=== PATIENT | female | born 1975 | race Caucasian/White ===

== ENCOUNTER 2020-05-24 05:42 | Emergency (ER) | payer SELFPAY ==
--- NOTE | ~2020-05-24 | CT_ITS ---
EXAMINATION: CT abdomen pelvis wo con EXAM DATE: 05/24/2020 06:23 INDICATION: Subsequent visit for known closed fracture(s) follow-up of the left flank pain for 2 chau rs. Nausea and vomiting. History of kidney stones. TECHNIQUE: Spiral CT of the abdomen and pelvis was performed without contrast. Axial, coronal and sag ittal images were reviewed. The dose-length product (DLP) for this examination was 636.87 mGy-cm. T he exposure was tailored according to patient size (auto mA exposure control), and iterative reconstr uction (ASIR) was used as additional dose reduction technique. There is no prior study for compariso n. FINDINGS: There is a 3 mm stone in the left ureterovesicular junction, with mild hydroureteronephrosi s. This is seen on axial image 154, has been indicated. There is a 3.5 mm right inferior calyceal sto ne and an additional punctate right mid calyceal stone. The uterus is not identified and has likely b een surgically resected. The bladder is collapsed at time of imaging limiting evaluation. The liver , spleen, adrenal glands and pancreas are unremarkable. There is a 1.4 cm peripherally calcified gal lstone, gallbladder otherwise unremarkable. There is no retroperitoneal or pelvic lymphadenopathy. The appendix is not positively visualized. There is no pericecal inflammatory change to suggest appe ndicitis. The stomach and small bowel are unremarkable. There is expected amount of colonic stool. No free intraperitoneal gas. The heart is normal in size. There are no pericardial or pleural e ffusions. There is approximately 1 cm ill-defined low left posterior sulcus nodule and a 5 mm ill-de fined right posterior sulcus nodule. Could be granulomas or acute infectious process. Would be atypic al for COVID-19 given confluence rather than groundglass density but please clinically correlate. Th ere are no osteoblastic or osteolytic lesions identified. IMPRESSION: 1. Small nodule at each lung base with surrounding groundglass halo, often suggesting acute inflamma tory/infectious process. This would be atypical appearance for COVID-19 but please clinically correla te. 2. Left UVJ 3 mm stone, mild hydroureteronephrosis. 3. Right nephrolithiasis. 4. Cholelithiasis. Urologist consultants would appreciate KUB as baseline for follow-up, treatment planning. Reviewed, dictated and finalized at location A. IMPRESSION: 1. Small nodule at each lung base with surrounding groundglass halo, often sug gesting acute inflammatory/infectious process. This would be atypical appearanc e for COVID-19 but please clinically correlate. 2. Left UVJ 3 mm stone, mild hydroureteronephrosis. 3. Right nephrolithiasis. 4. Cholelithiasis. Urologist consultants would appreciate KUB as baseline for follow-up, treatment planning.
[2020-05-24 05:45] VITALS: BP 137/82; PULSE 80; RESP 17; TEMP 35.6; O2SAT 100
--- NOTE | 2020-05-24 06:05 | ED.ABDPAIN ---
HPI - Abdominal Pain General Chief Complaint: Back Pain/Injury Stated Complaint: kidney stone Time Seen by Provider: 05/24/20 06:00 History of Present Illness HPI narrative: Left flank pain since 399. Radiating to LLQ. Associated with nausea and a sensation of needing to urinate. She has had similar symptoms in the distant past due to a kidney stone. NO fever, diarrhea, constipation. Related Data Allergies Allergy/AdvReac Type Severity Reaction Status Date / Time Penicillins Allergy Unknown Unknown Verified 05/24/20 05:49 Review of Systems Review of Systems: All systems reviewed & are unremarkable except as noted in HPI and below Constitutional: Constitutional: Denies fever(s) Cardiovascular: Cardiovascular: Denies chest pain Respiratory: Respiratory: Denies dyspnea Gastrointestinal: Gastrointestinal: Reports abdominal pain, Denies constipation, Denies diarrhea, Reports nausea and Denies vomiting Genitourinary: Genitourinary: Denies hematuria, Denies dysuria and Reports flank pain Neurologic: Denies weakness [facility] Past Medical History Medical History (Updated 05/25/20 @ 00:00 by Prem Lala) Kidney stone Social History Social History Smoking status: Never smoker Alcohol intake: never Gender identity (if verbalized by the patient): Female Exam Const: General: healthy appearing, no acute distress and alert Nutritional Appearance: obese Orientation/consciousness: patient oriented x3 HENMT: Head: normal to inspection Resp: Effort & Inspection: normal respiratory effort Auscultation: clear to auscultation bilaterally Cardio: Rate: regular rate Rhythm: regular rhythm GI: Inspection: non-distended GI Palp: Yes Soft to palpation and No Tenderness to palpation present (GI) : General: Yes no CVA tenderness Skin: General skin exam: normal color Neuro: General: patient oriented x3, moves all extremities, no focal motor deficits and CN's II-XI intact bilaterally Speech: normal speech Extrem: General: normal to inspection Course Vital Signs Vital signs: Vital Signs Temperature 35.6 C L 05/24/20 05:45 Pulse Rate 80 05/24/20 05:45 Respiratory Rate 17 05/24/20 05:45 Blood Pressure 137/82 05/24/20 05:45 Pulse Oximetry 100 05/24/20 05:45 Temperature 35.6 C L 05/24/20 05:45 Pulse Rate 72 05/24/20 07:36 Respiratory Rate 18 05/24/20 07:36 Blood Pressure 117/68 05/24/20 07:36 Pulse Oximetry 100 05/24/20 07:36 MDM - Abdominal Pain MDM Narrative Medical decision making narrative: 3 mm Left UVJ stone Lab Data Result diagrams: 05/24/20 06:14 05/24/20 06:41 Labs: Lab Results 05/24/20 05/24/20 05/24/20 Range/Units 06:00 06:14 06:41 WBC 6.7 (4.5-10.0) K/mm3 RBC 4.71 (4.2-5.4) M/mm3 Hgb 13.5 (12.0-15.0) g/dL Hct 40.9 (37.0-47.0) % MCV 86.8 (80-100) fl MCH 28.7 (26-34) pg MCHC 33.0 (32-36) g/dl RDW 12.7 (11.5-14.5) % Plt Count 271 (150-375) k/mm3 MPV 10.1 (7.4-10.4) fl Immature Gran % (Auto) 0.3 (0-0.5) % Neut % (Auto) 44.7 L (45.5-73.1) % Lymph % (Auto) 41.7 (18.3-44.2) % [place] % (Auto) 7.6 (2.6-8.5) % Eos % (Auto) 4.5 H (0-4.4) % Baso % (Auto) 1.2 (0.2-1.2) % Lymph # (Auto) 2.78 (0.9-3.2) K/mm3 [place] # (Auto) 0.5 (0.1-0.6) K/mm3 Eos # (Auto) 0.3 (0-0.3) K/mm3 Baso # (Auto) 0.1 (0.0-0.1) K/mm3 Abs Immat Gran (auto) 0.02 (0.00-0.031) K/mm3 Absolute Neuts (auto) 3.0 (1.3-6.7) K/mm3 Absolute Nucleated RBC 0.0 (0.0-0.012) K/mm3 Nucleated RBC % 0.0 (0.0-0.2) % Sodium 140 (137-145) mmol/L Potassium 3.9 (3.4-5.0) mmol/L Chloride 106 (98-107) mmol/L Carbon Dioxide 25 (22-30) mmol/L Anion Gap 9 (8-16) mmol/L BUN 12 (7-17) mg/dL Creatinine 0.90 (0.7-1.0) mg/dL Estim Creat Clear Calc 80 ml/min Estimated GFR > 60
[2020-05-24 06:08] LABS: Add Urine Microscopic? YES; Appearance Urine Cloudy (Clear); Bacteria Urine 2+ /hpf; Bilirubin Urine Negative (Negative); Blood Urine Negative (Negative); Color Urine Yellow (Yellow); Glucose Urine UA Negative (Negative); Ketones Urine Negative (Negative); Leukocyte Esterase Ur Negative LEU/UL (Negative); Mucus Urine Heavy /lpf; Nitrate Urine Negative (Negative); Protein Urine Negative (Negative); Squamous Epithelial Cell Urine Many /hpf (Few); Urobilinogen Urine Negative mg/dL (<2.0)
[2020-05-24 06:24] LABS: Basophils Absolute Auto 0.1 K/mm3 (0.0-0.1); Basophils Percent Auto 1.2 % (0.2-1.2); Eosinophils Absolute Auto 0.3 K/mm3 (0-0.3); Eosinophils Percent Auto 4.5 % (0-4.4); Hematocrit 40.9 % (37.0-47.0); Hemoglobin 13.5 g/dL (12.0-15.0); Immature Granulocyte Absolute 0.02 K/mm3 (0.00-0.031); Immature Granulocyte Percent A 0.3 % (0-0.5); Lymphocytes Absolute Auto 2.78 K/mm3 (0.9-3.2); Lymphocytes Percent Auto 41.7 % (18.3-44.2); Mean Corpuscular Hemoglobin 28.7 pg (26-34); Mean Corpuscular Volume 86.8 fl (80-100); Mean Platelet Volume 10.1 fl (7.4-10.4); Monocytes Absolute Auto 0.5 K/mm3 (0.1-0.6); Monocytes Percent Auto 7.6 % (2.6-8.5); Neutrophils Percent Auto 44.7 % (45.5-73.1); Platelet Count Result 271 k/mm3 (150-375); Red Blood Count 4.71 M/mm3 (4.2-5.4); Red Cell Distribution Width 12.7 % (11.5-14.5); White Blood Count 6.7 K/mm3 (4.5-10.0)
[2020-05-24] MEDS: SODIUM CHLORIDE 0.9% IV 1,000 ML 999 ML IV CONT (06:28)
[2020-05-24] MEDS: TAMSULOSIN HCL 0.4 MG CAPSULE PO (06:49)
[2020-05-24] MEDS: ONDANSETRON INJ 4 MG/2 ML VIAL IV PUSH (06:49)
[2020-05-24] MEDS: KETOROLAC 30 MG/ML VIAL (*BKC) IV PUSH (06:49)
[2020-05-24 07:01] LABS: Alanine Aminotransferase 37 U/L (4-35); Albumin Level 4.1 g/dL (3.5-5.1); Alkaline Phosphatase 88 U/L (38-126); Anion Gap 9 mmol/L (8-16); Aspartate Amino Transferase 28 U/L (14-36); Bilirubin,Total 0.4 mg/dL (0.2-1.3); Blood Urea Nitrogen 12 mg/dL (7-17); Calcium 8.9 mg/dL (8.4-10.2); Carbon Dioxide 25 mmol/L (22-30); Chloride 106 mmol/L (98-107); Estimated CRCL calculation 80 ml/min; Estimated Glomerular Filt Rate > 60; Glucose 129 mg/dL (65-105); Potassium 3.9 mmol/L (3.4-5.0); Sodium 140 mmol/L (137-145)
[2020-05-24 07:12] VITALS: BP 122/68; PULSE 68; RESP 16; O2SAT 100
--- NOTE | 2020-05-24 07:12 | PC.NURSE ---
ASSUMED PT CARE FROM [facility] SO[facility] AT THIS TIME, AWAITING FLUIDS TO FINISH RUNNING THEN D/C'ING PT.
[2020-05-24 07:36] VITALS: BP 117/68; PULSE 72; RESP 18; O2SAT 100
== END 2020-05-24 07:37 | disposition home or self-care (01) ==
PROVIDERS: Emergency Provider Emergency Medicine; PCP Family Medicine
DX: N13.2 Hydronephrosis with renal and ureteral calculous obstruction (principal); Z87.442 Personal history of urinary calculi; K80.20 Calculus of gallbladder without cholecystitis without obstruction; R91.8 Other nonspecific abnormal finding of lung field
CPT/HCPCS: 36415; 74176; 80053; 81001; 85025; 96361; 96374; 96375; 99284; A9270; J1170; J1885; J2405; J3010; J7030

== ENCOUNTER → 2020-08-26 14:23 | Outpatient (CLI) | payer SELFPAY ==
--- NOTE | ~2020-08-26 | XR_ITS ---
EXAMINATION: XR chest 2V 08/26/2020 14:44 INDICATION: Cough for 6 month PROCEDURE: 2 view chest COMPARISON: 02/13/2018 FINDINGS: The lungs are clear. The cardiomediastinal silhouette is within normal limits. There are no pleural effusions. There is no pneumothorax suspected. IMPRESSION: 1: NO ACUTE CARDIOPULMONARY DISEASE. Reviewed, dictated and finalized at location A. LEMAN
== END ==
PROVIDERS: Visit Provider Nurse Practitioner Family
DX: R05 Cough (principal)
CPT/HCPCS: 71046

== ENCOUNTER 2020-12-24 13:37 | Emergency (ER) | payer MEDICAID, SELFPAY ==
--- NOTE | ~2020-12-24 | CT_ITS ---
EXAMINATION: CT brain wo con DATE: 12/24/2020 15:13 INDICATION: Confusion, dizziness. Neck pain radiating to both arms. TECHNIQUE: Computed tomography (CT) of the head was performed without intravenous contrast. The mA wa s adjusted according to patient size. Iterative reconstruction technique was employed. Exam dose: 60 5.33 mGy-cm total exam DLP. COMPARISON: None FINDINGS: No intracranial mass lesion or hemorrhage or cerebrovascular accident is evident. No midlin e shift or mass effect. Normal ventricular size. Normal olivo-white matter differentiation. No subdural or epidural hematoma. The mastoid air cells are normally developed and aerated. The right frontal sinus is not developed. Left frontal sinus is clear. There is minimal mucoperiostea l thickening of the sphenoid sinuses. There is soft tissue thickening of the ethmoid air cells. The v maryana upper aspect of the maxillary sinuses is included, without abnormality. IMPRESSION: No intracranial abnormality Reviewed, dictated and finalized at [facility]. Reviewed, dictated and finalized at location A. IMPRESSION: No intracranial abnormality
--- NOTE | ~2020-12-24 | CT_ITS ---
EXAMINATION: CT cervical spine wo con DATE: 12/24/2020 15:14 INDICATION: Neck pain radiating to both arms TECHNIQUE: Computed tomography (CT) of the cervical spine was performed without intravenous contrast. Automated exposure control and iterative reconstruction technique were employed. Exam dose: 324.31 mGy-cm total exam DLP. COMPARISON: None FINDINGS: There is straightening of the cervical spine which may be due to muscle spasm and/or positi oning. C1 and C2 are normally aligned and the odontoid process is intact. No fracture or dislocation or lock ed facet or prevertebral soft tissue swelling. Cervical interspaces are well preserved. IMPRESSION: Straightening of the cervical spine; no fracture or dislocation or locked facet Reviewed, dictated and finalized at [facility]. Reviewed, dictated and finalized at location A.
[2020-12-24 13:48] VITALS: BP 123/93; PULSE 94; RESP 20; TEMP 36.3; O2SAT 97
--- NOTE | 2020-12-24 14:56 | ED.BACK ---
HPI - Back Pain/Injury General Chief Complaint: Back Pain/Injury Stated Complaint: neck and back pain Time Seen by Provider: 12/24/20 13:54 Source: patient Mode of arrival: ambulatory Limitations: no limitations History of Present Illness HPI Narrative: Patient is a 45-year-old female who presents with neck pain and back pain and head pain that have been going on for 6 months patient has not been seen by primary care for this saw primary care yesterday for urinary symptoms diagnosed UTI but did not bring these issues symptoms have been present for 6 months patient notes history of chronic neck and back pain secondary to fracture denies new injury or trauma patient on arrival is tearful notes that she has had bouts of confusion and dizziness but has not brought this up to primary care patient has been taking gabapentin for her symptoms long-term Related Data Allergies Allergy/AdvReac Type Severity Reaction Status Date / Time Penicillins Allergy Unknown Unknown Verified 12/06/20 08:52 Review of Systems Review of Systems: All systems reviewed & are unremarkable except as noted in HPI and below PMFSH Past Medical History Medical History BMI over 35 Kidney stone Family History Family History Father No problems noted. 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 HEAD: Normocephalic, atraumatic. EYES: PERRLA and EOMI. ENT: Nares clear, no rhinorrhea or epistaxis. Mucous membranes moist. NECK: Supple. No adenopathy or masses. CHEST: Clear to auscultation. No respiratory distress. No wheezes rales or rhonchi HEART: Regular rate and rhythm. No murmur heard. EXTREMITIES: Normal range of motion. No edema. Midline cervical and upper thoracic tenderness no deformities noted SKIN: Warm, dry, no rash. NEURO: No focal deficits. Alert and oriented x3. Cranial nerves II through XII grossly intact. Normal speech and gait. Patient moves all extremities without difficulty PSYCH: Normal mood and affect. Course Course Emergency Course: Patient evaluated in the emergency department no high risk changes in the evaluation will be discharged with follow-up with primary care and neurology for her symptoms ABCs and vital signs intact and stable felt appropriate for outpatient reevaluation Vital Signs Vital signs: Vital Signs Temperature 97.4 F L 12/24/20 13:48 Pulse Rate 94 12/24/20 13:48 Respiratory Rate 20 12/24/20 13:48 Blood Pressure 123/93 H 12/24/20 13:48 Pulse Oximetry 97 12/24/20 13:48 Temperature 97.4 F L 12/24/20 13:48 Pulse Rate 94 12/24/20 13:48 Respiratory Rate 20 12/24/20 13:48 Blood Pressure 123/93 H 12/24/20 13:48 Pulse Oximetry 97 12/24/20 13:48 MDM - Back Pain/Injury MDM Narrative Medical decision making narrative: Patients headache was not sudden or maximal in onset. There are o focal neurological deficits on exam. Subarachnoid hemorrhage is felt to be unlikey at this time. There is no history of fever, and neck is supple without meningismus, making meningitis unlikely. No traumatic history or signs of trauma on exam. No risk factors for CVA, risk factors reviewed. NO ocular signs on exam and in history to suggest acute glaucoma. Patients headache is felt to be a reasonable candidate for outpatient evaluation Lab Data
[2020-12-24 15:31] LABS: Basophils Absolute Auto 0.1 K/mm3 (0.0-0.1); Basophils Percent Auto 1.2 % (0.2-1.2); Eosinophils Absolute Auto 0.2 K/mm3 (0-0.3); Eosinophils Percent Auto 2.5 % (0-4.4); Hematocrit 39.2 % (37.0-47.0); Hemoglobin 12.9 g/dL (12.0-15.0); Immature Granulocyte Absolute 0.03 K/mm3 (0.00-0.031); Immature Granulocyte Percent A 0.3 % (0-0.5); Lymphocytes Absolute Auto 3.22 K/mm3 (0.9-3.2); Lymphocytes Percent Auto 35.3 % (18.3-44.2); Mean Corpuscular HGB Conc 32.9 g/dl (32-36); Mean Corpuscular Hemoglobin 29.2 pg (26-34); Mean Corpuscular Volume 88.7 fl (80-100); Mean Platelet Volume 9.6 fl (7.4-10.4); Monocytes Absolute Auto 0.8 K/mm3 (0.1-0.6); Monocytes Percent Auto 9.1 % (2.6-8.5); Neutrophils Absolute Auto 4.7 K/mm3 (1.3-6.7); Neutrophils Percent Auto 51.6 % (45.5-73.1); Platelet Count Result 270 k/mm3 (150-375); Red Blood Count 4.42 M/mm3 (4.2-5.4); Red Cell Distribution Width 12.8 % (11.5-14.5); White Blood Count 9.1 K/mm3 (4.5-10.0)
[2020-12-24 15:31] LABS: Add Urine Microscopic? YES; Appearance Urine Cloudy (Clear); Bilirubin Urine Negative (Negative); Blood Urine Negative (Negative); Color Urine Yellow (Yellow); Glucose Urine UA Negative (Negative); Ketones Urine Trace mg/dL (Negative); Leukocyte Esterase Ur Trace LEU/UL (Negative); Mucus Urine Rare /lpf; Nitrate Urine Negative (Negative); Protein Urine 1+ mg/dL (Negative); RBC Urine 0-2 /hpf (0-2); Specific Grav Ur 1.029 (1.001-1.035); Squamous Epithelial Cell Urine Few /hpf (Few)
[2020-12-24] MEDS: SODIUM CHLORIDE 0.9% IV 1,000 ML 999 ML IV CONT (15:35)
[2020-12-24 15:42] LABS: Amphetamine Screen Urine Negative (Negative); Barbiturate Screen Urine Negative (Negative); Benzodiazepines Screen Urine Negative (Negative); Cannabinoid Screen Urine Negative (Negative); Cocaine Screen Urine Negative (Negative); Methadone Screen Urine Negative (Negative); Opiate Screen Urine Negative (Negative); Phencyclidine Screen Urine Negative (Negative)
[2020-12-24 16:38] VITALS: BP 112/78; PULSE 72; RESP 18; O2SAT 97
== END 2020-12-24 16:43 | disposition home or self-care (01) ==
PROVIDERS: Emergency Medicine Emergency Medical Services; Emergency Provider Emergency Medicine; PCP Family Medicine
DX: M54.2 Cervicalgia (principal); R51.9 Headache, unspecified; N39.0 Urinary tract infection, site not specified; Z87.442 Personal history of urinary calculi
CPT/HCPCS: 36415; 70450; 72125; 80307; 81001; 85025; 96361; 96365; 99284; J0131; J7030

== ENCOUNTER 2021-07-02 16:41 | Emergency (ER) | payer BC, SELFPAY ==
[2021-07-02] VITALS (7 sets, daily range): BP systolic 100–121; BP diastolic 66–81; PULSE 74–101; RESP 17–18; TEMP 36.6–36.9; O2SAT 96–100
--- NOTE | ~2021-07-02 | CT_ITS ---
EXAMINATION: CT abdomen pelvis w con DATE: 07/02/2021 21:16 INDICATION: Left lower quadrant abdominal pain, nausea, vomiting, diarrhea TECHNIQUE: Computed tomography (CT) of the abdomen and pelvis was performed with 100 cc Omnipaque 350 intravenous contrast. Automated exposure control and iterative reconstruction technique were employe d. Exam dose: 1277.63 mGy-cm total exam DLP. COMPARISON: 05/25/2020 CT abdomen pelvis FINDINGS: Prior 8.5 mm posterolateral left basilar lower lobe nodule currently measures 11 mm. The lung bases are clear of infiltrate or consolidation. Normal heart size. No pericardial or pleural effusion. 1.5 cm gallstone. No pericholecystic fluid or fat stranding. The liver, spleen, pancreas are unremarkable. No bile duct or pancreatic duct dilatation. Unremarkable adrenal glands. Several right renal cysts, measuring up to 8.5 mm. There are 2 nonobstructing right renal calculi measuring approximately 4.5 and 5 mm. No left renal mass lesion or left urinary tract calculus. No ureteral calculus or hydroureteronephros is of either kidney. The urinary bladder is evacuated. Status post hysterectomy. Normal caliber of the abdominal aorta. No intraperitoneal or retroperitoneal or pelvic mass lesion or adenopathy or ascites. Mild colonic diverticulosis; no CT evidence of diverticulitis. No bowel obstruction, bowel wall thick ening, pneumatosis or intraperitoneal free air. Fat-containing umbilical hernia. Multilevel degenerative disc involving particularly L3 4 and L4-5 and L5-S1, with associated mild ret rolisthesis at L3-4. IMPRESSION: 11 mm left lower lobe pulmonary nodule, increased in size compared to 8.5 mm dimension o n 05/25/2020. Differential diagnosis includes pulmonary granuloma, hamartoma, primary or metastatic pu lmonary malignancy. Consider PET/CT imaging Cholelithiasis Several right renal cysts Nonobstructive right nephrolithiasis Mild colonic diverticulosis Status post hysterectomy Reviewed, dictated and finalized at [facility]. Reviewed, dictated and finalized at location A. IMPRESSION: 11 mm left lower lobe pulmonary nodule, increased in size compared to 8.5 mm dimension on 05/25/2020. Differential diagnosis includes pulmonary gr anuloma, hamartoma, primary or metastatic pulmonary malignancy. Consider PET/CT imaging Cholelithiasis Several right renal cysts Nonobstructive right nephrolithiasis Mild colonic diverticulosis Status post hysterectomy
--- NOTE | 2021-07-02 17:30 | PC.NURSE ---
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
--- NOTE | 2021-07-02 17:34 | ED.NAVMDI ---
HPI - Nausea/Vomiting/Diarrhea General Chief complaint: Nausea/Vomiting/Diarrhea <Qian Jay MD - Last Filed: 07/02/21 19:31> Stated complaint: Diarrhea for 2 weeks <Qian Jay MD - Last Filed: 07/02/21 19:31> Time Seen by Provider: 07/02/21 17:26 <Qian Jay MD - Last Filed: 07/02/21 19:31> Source: patient <Qian Jay MD - Last Filed: 07/02/21 19:31> Mode of arrival: ambulatory <Qian Jay MD - Last Filed: 07/02/21 19:31> Limitations: no limitations <Qian Jay MD - Last Filed: 07/02/21 19:31> History of Present Illness HPI Narrative: This is a 45 year old female who presents for evaluation of 2 weeks of diarrhea. She developed diarrhea 2 weeks ago. She reports multiple episodes of watery, nonbloody diarrhea daily. Her diarrhea is exacerbated by eating. She also reports cramping pain that occurs to her whole torso after she eats. She denies nausea, vomiting. She has intermittent body aches. she denies preceding antibiotics use or recent travel. She also denies new foods. She has been taking imodium intermittently for her diarrhea. She did not have diarrhea today until she ate bread and juice this afternoon. <Qian Jay MD - Last Filed: 07/02/21 19:31> Related Data Allergies/Adverse reactions: Allergies Allergy/AdvReac Type Severity Reaction Status Date / Time Penicillins Allergy Unknown Unknown Verified 12/27/20 09:10 <Qian Jay MD - Last Filed: 07/02/21 19:31> Review of Systems Review of Systems: All systems reviewed & are unremarkable except as noted in HPI and below <Qian Jay MD - Last Filed: 07/02/21 19:31> PMFSH Past Medical History Medical History: Medical History BMI 36.0-36.9,adult BMI over 35 Kidney stone <Qian Jay MD - Last Filed: 07/02/21 19:31> Family History Family History: Family History Father No problems noted. 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 Gender identity (if verbalized by the patient): Female <Qian Jay MD - Last Filed: 07/02/21 19:31> Exam Const: General: alert <Qian Jay MD - Last Filed: 07/02/21 19:31> Orientation/consciousness: patient oriented x3 <Qian Jay MD - Last Filed: 07/02/21 19:31> Eyes: EOM: EOMs intact bilaterally <Qian Jay MD - Last Filed: 07/02/21 19:31> Resp: Effort & Inspection: normal respiratory effort and no retractions <Qian Jay MD - Last Filed: 07/02/21 19:31> Auscultation: clear to auscultation bilaterally <Qian Jay MD - Last Filed: 07/02/21 19:31> Cardio: Rate: regular rate <Qian Jay MD - Last Filed: 07/02/21 19:31> Rhythm: regular rhythm <Qian Jay MD - Last Filed: 07/02/21 19:31> Heart sounds: no murmurs <Qian Jay MD - Last Filed: 07/02/21 19:31> GI: GI Palp: Yes Soft to palpation, No Tenderness to palpation present (GI) and No Guarding due to palpation present (GI) <Qian Jay MD - Last Filed: 07/02/21 19:31> Auscultation: normal bowel sounds <Qian Jay MD - Last Filed: 07/02/21 19:31> Skin: General skin exam: normal color <Qian Jay MD - Last Filed: 07/02/21 19:31> Rashes: no rashes <Qian Jay MD - Last Filed: 07/02/21 19:31> Neuro: General: patient oriented x3, moves all extremities and
--- NOTE | 2021-07-02 19:05 | PC.NURSE ---
Informed oncoming RN IV and labs could not be collected
--- NOTE | 2021-07-02 19:16 | PC.NURSE ---
Patient report received. Assumed care of patient at this time.
--- NOTE | 2021-07-02 19:35 | PC.NURSE ---
Patient tough stick, per previous RN, multiple attempts for IV and blood draw, unsuccessful. Kirt RN going to attempt IV placement and blood draw.
[2021-07-02 19:55] LABS: Basophils Absolute Auto 0.1 K/mm3 (0.0-0.1); Basophils Percent Auto 0.9 % (0.2-1.2); Eosinophils Absolute Auto 0.2 K/mm3 (0-0.3); Eosinophils Percent Auto 1.9 % (0-4.4); Hematocrit 42.7 % (37.0-47.0); Immature Granulocyte Absolute 0.01 K/mm3 (0.00-0.031); Immature Granulocyte Percent A 0.1 % (0-0.5); Lymphocytes Absolute Auto 3.04 K/mm3 (0.9-3.2); Lymphocytes Percent Auto 32.3 % (18.3-44.2); Mean Corpuscular HGB Conc 32.8 g/dl (32-36); Mean Corpuscular Hemoglobin 28.9 pg (26-34); Mean Corpuscular Volume 88.2 fl (80-100); Mean Platelet Volume 9.4 fl (7.4-10.4); Monocytes Absolute Auto 0.6 K/mm3 (0.1-0.6); Monocytes Percent Auto 6.7 % (2.6-8.5); Neutrophils Absolute Auto 5.5 K/mm3 (1.3-6.7); Neutrophils Percent Auto 58.1 % (45.5-73.1); Platelet Count Result 317 k/mm3 (150-375); Red Blood Count 4.84 M/mm3 (4.2-5.4); Red Cell Distribution Width 12.7 % (11.5-14.5); White Blood Count 9.4 K/mm3 (4.5-10.0)
[2021-07-02 20:08] LABS: Alanine Aminotransferase 23 U/L (4-35); Albumin Level 4.6 g/dL (3.5-5.1); Alkaline Phosphatase 77 U/L (38-126); Anion Gap 10 mmol/L (8-16); Aspartate Amino Transferase 28 U/L (14-36); Bilirubin,Total 0.5 mg/dL (0.2-1.3); Blood Urea Nitrogen 15 mg/dL (7-17); Calcium 9.6 mg/dL (8.4-10.2); Carbon Dioxide 30 mmol/L (22-30); Chloride 100 mmol/L (98-107); Estimated CRCL calculation 77 ml/min; Estimated Glomerular Filt Rate > 60; Glucose 78 mg/dL (65-110); Lipase 77 U/L (23-300); Potassium 4.1 mmol/L (3.4-5.0); Sodium 140 mmol/L (137-145)
--- NOTE | 2021-07-02 20:43 | PC.NURSE ---
Patient ambulated to the bathroom to attempt to provide a urine and stool specimen.
[2021-07-02] MEDS: DICYCLOMINE HCL INJ 20 MG/2 ML VIAL IM (21:02)
[2021-07-02] MEDS: SODIUM CHLORIDE 0.9% IV 1,000 ML 999 ML IV CONT (21:02)
[2021-07-02 21:06] LABS: Add Urine Microscopic? YES; Appearance Urine Cloudy (Clear); Bacteria Urine Trace /hpf; Bilirubin Urine Negative (Negative); Blood Urine Negative (Negative); Color Urine Yellow (Yellow); Glucose Urine UA Negative (Negative); Ketones Urine Negative (Negative); Leukocyte Esterase Ur Trace LEU/UL (Negative); Mucus Urine Moderate /lpf; Nitrate Urine Negative (Negative); Protein Urine Negative (Negative); Specific Grav Ur 1.025 (1.001-1.035); Squamous Epithelial Cell Urine Few /hpf (Few); Urobilinogen Urine Negative mg/dL (<2.0)
[2021-07-02] MEDS: CIPROFLOXACIN 500 MG TAB PO (22:21)
[2021-07-02] MEDS: metroNIDAZOLE 250 MG TABLET 500 MG PO (22:21)
== END 2021-07-02 22:29 | disposition home or self-care (01) ==
PROVIDERS: Emergency Medicine; Emergency Provider Emergency Medicine; PCP Family Medicine
DX: R19.7 Diarrhea, unspecified (principal); N30.00 Acute cystitis without hematuria; R91.1 Solitary pulmonary nodule; Z87.442 Personal history of urinary calculi; K80.20 Calculus of gallbladder without cholecystitis without obstruction; N28.1 Cyst of kidney, acquired; K57.90 Diverticulosis of intestine, part unspecified, without perforation or abscess without bleeding
CPT/HCPCS: 36415; 74177; 80053; 81001; 81025; 83690; 85025; 87086; 87088; 96360; 96372; 99284; A9270; J0500; J7030; Q9967

== ENCOUNTER 2021-07-27 07:23 | Outpatient (CLI) | payer BC, SELFPAY ==
[2021-07-27 07:59] LABS: Anion Gap 10 mmol/L (8-16); Blood Urea Nitrogen 25 mg/dL (7-17); Carbon Dioxide 26 mmol/L (22-30); Chloride 101 mmol/L (98-107); Cholesterol 175 mg/dL (0-200); Estimated Glomerular Filt Rate > 60; Glucose 91 mg/dL (65-110); HDL Direct 35 mg/dL; Potassium 4.9 mmol/L (3.4-5.0); Sodium 137 mmol/L (137-145); Triglycerides 77 mg/dL (<150)
[2021-07-27 08:10] LABS: LDL Cholesterol Direct 100 mg/dL
[2021-07-27 08:23] LABS: Hemoglobin A1C 4.9 % (<5.7)
[2021-07-27 08:29] LABS: Vitamin D 25 Hydroxy 44.3 ng/mL
== END 2021-07-27 07:24 | disposition home or self-care (01) ==
LOC: ANHLAB 07:25
PROVIDERS: PCP Family Medicine; Visit Provider Nurse Practitioner Family
DX: Z13.1 Encounter for screening for diabetes mellitus (principal); Z13.29 Encounter for screening for other suspected endocrine disorder; Z13.220 Encounter for screening for lipoid disorders; E55.9 Vitamin D deficiency, unspecified; R73.09 Other abnormal glucose
CPT/HCPCS: 36415; 80048; 80061; 82306; 83036; 84443

== ENCOUNTER 2021-09-14 09:21 | Outpatient (CLI) | payer BC, SELFPAY ==
--- NOTE | ~2021-09-14 | PE_ITS ---
EXAMINATION: PET skull to mid thigh DATE: 09/14/2021 12:29 INDICATION: Pulmonary nodule. TECHNIQUE: Blood glucose level was 76 mg/dL. 9.126 mCi of 18-fluorodeoxyglucose (18-FDG) was administ ered i.v. Low dose computed tomography (CT) images were acquired from the base of the brain to the pr oximal thighs for attenuation correction and anatomic localization. Automated exposure control was em ployed. Dose-length product (DLP) was 595 mGy-cm. Positron emission tomography (PET) images were acqu ired in the same distribution. COMPARISON: CT abdomen and pelvis 07/02/2021 FINDINGS: Head/neck: There is increased activity in the oropharynx, oral cavity, and sublingual glands without abnormal CT correlate, likely physiologic. There are no pathologically enlarged lymph nodes. Chest: There is a 14 mm nodule in left lung lower lobe with maximum SUV of 1.4. No pleural effusion. The heart size is normal. No pericardial effusion. Abdomen/pelvis/proximal thighs: The liver is normal. There is a gallstone in the gallbladder, which i s contracted. The spleen, pancreas, adrenal glands, and kidneys are normal. There are no dilated loop s of bowel. There are no pathologically enlarged lymph nodes. There is no free intraperitoneal fluid. There is no osseous malignancy. IMPRESSION: 1. 14 mm nodule in left lung lower lobe without increased activity, increased from 9 mm on 05/24/2020. This finding is suspicious for low-grade neoplasm. CT-guided biopsy is recommended. Reviewed, dictated and finalized at location A. 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 14 mm nodule in left lung lower lobe without increased activity, increased f rom 9 mm on 05/24/2020. This finding is suspicious for low-grade neoplasm. CT-gu ided biopsy is recommended.
[2021-09-14 09:46] LABS: Glucose Point of Care 76 mg/dl (65-105)
== END 2021-09-14 09:22 | disposition home or self-care (01) ==
LOC: ANHIMG 09:24
PROVIDERS: PCP Family Medicine; Visit Provider Nurse Practitioner Family
DX: R91.1 Solitary pulmonary nodule (principal)
CPT/HCPCS: 78815; A9552

== ENCOUNTER 2021-09-18 00:31 | Emergency (ER) | payer BC, SELFPAY ==
--- NOTE | ~2021-09-18 | XR_ITS ---
EXAMINATION: XR chest 1V portable EXAM DATE: 09/18/2021 03:22 INDICATION: Chest Pain/Pressure,Sob,Hx Lt Lobe Nodule,Pet Done On 09/14/21. TECHNIQUE: Portable AP frontal chest x-ray was obtained. Comparison is made to prior examination from 08/26/2020. FINDINGS: Can't identify the 14 mm left lower lobe nodule evaluated on PET/CT. No evidence of acute a irspace disease. There are no pleural effusions. Cardiomediastinal silhouette is normal. There is n o pneumothorax suspected. The bones and soft tissues are unremarkable. IMPRESSION: No acute cardiopulmonary findings. Reviewed, dictated and finalized at location A. ING MACHINE FEEDER
--- NOTE | 2021-09-18 00:33 | ECG_ITS ---
Measurements Intervals [place] Rate: 80 P: 25 SD: 152 QRS: 17 QRSD: 88 T: 34 QT: 353 QTc: 409 Interpretive Statements SINUS RHYTHM NORMAL ECG Electronically Signed On 09-18-2021 6:35:30 JAR FILLER by Randall Dillon D.O.
[2021-09-18 00:50] VITALS: PULSE 71; RESP 18; TEMP 36.3; O2SAT 100
[2021-09-18 03:10] VITALS: BP 100/69; PULSE 70; RESP 18; O2SAT 99
[2021-09-18 03:12] VITALS: O2SAT 99
[2021-09-18 03:53] LABS: Basophils Absolute Auto 0.1 K/mm3 (0.0-0.1); Basophils Percent Auto 1.2 % (0.2-1.2); Eosinophils Absolute Auto 0.3 K/mm3 (0-0.3); Eosinophils Percent Auto 3.9 % (0-4.4); Hematocrit 40.5 % (37.0-47.0); Hemoglobin 13.2 g/dL (12.0-15.0); Immature Granulocyte Absolute 0.01 K/mm3 (0.00-0.031); Immature Granulocyte Percent A 0.1 % (0-0.5); Lymphocytes Absolute Auto 2.54 K/mm3 (0.9-3.2); Mean Corpuscular HGB Conc 32.6 g/dl (32-36); Mean Corpuscular Hemoglobin 28.7 pg (26-34); Mean Platelet Volume 10.7 fl (7.4-10.4); Monocytes Absolute Auto 0.7 K/mm3 (0.1-0.6); Monocytes Percent Auto 8.4 % (2.6-8.5); Neutrophils Absolute Auto 4.1 K/mm3 (1.3-6.7); Neutrophils Percent Auto 53.4 % (45.5-73.1); Platelet Count Result 225 k/mm3 (150-375); Red Cell Distribution Width 13.2 % (11.5-14.5); White Blood Count 7.7 K/mm3 (4.5-10.0)
[2021-09-18 04:01] LABS: Prothrombin Time 13.1 Seconds (11.1-14.7)
[2021-09-18 04:02] LABS: Partial Thromboplastin Time 34.3 SECONDS (22.3-36.8)
[2021-09-18 04:04] LABS: D Dimer 0.29 ug/mL (<0.48)
[2021-09-18 04:06] LABS: Alanine Aminotransferase 25 U/L (4-35); Albumin Level 4.2 g/dL (3.5-5.1); Alkaline Phosphatase 65 U/L (38-126); Anion Gap 11 mmol/L (8-16); Aspartate Amino Transferase 26 U/L (14-36); Bilirubin,Total 0.6 mg/dL (0.2-1.3); Blood Urea Nitrogen 24 mg/dL (7-17); Calcium 9.4 mg/dL (8.4-10.2); Carbon Dioxide 23 mmol/L (22-30); Chloride 102 mmol/L (98-107); Estimated CRCL calculation 80 ml/min; Estimated Glomerular Filt Rate > 60; Glucose 102 mg/dL (65-110); Potassium 3.6 mmol/L (3.4-5.0); Sodium 136 mmol/L (137-145)
--- NOTE | 2021-09-18 04:08 | ED.GENADULT ---
HPI - General Adult General Chief complaint: Chest Pain Stated complaint: cp worse with talking 2 days Time Seen by Provider: 09/18/21 02:55 History of Present Illness HPI narrative: Patient 45-year-old female presents emergency department chief complaint of tightness in the chest. Patient states for the last several days she has had a fullness feeling in her chest patient reports that it kind of comes and goes but reports that is not really improved by anything. The patient states that she had no fever no cough patient reports no prior history of cardiac disease reports no family history for cardiac disease at a young age patient denies smoking. The patient states that the pain does not radiate to the arm denies radiation to the neck. Patient states been pretty well constant for the last several days. Related Data Home Medications Medication Instructions Recorded Confirmed metronidazole 500 mg tablet 500 mg PO Q12H tablet 07/11/21 07/11/21 Allergies Allergy/AdvReac Type Severity Reaction Status Date / Time Penicillins Allergy Unknown Unknown Verified 09/18/21 03:14 Review of Systems Review of Systems: A 10 system review of systems was completed on the patient and is negative except for what is stated in the HPI. Nursing and ancillary documentation was reviewed. [facility] Past Medical History Medical History BMI 36.0-36.9,adult BMI over 35 Kidney stone Lung nodule seen on imaging study Family History Family History Father No problems noted. 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 HEAD: Normocephalic, atraumatic. EYES: PERRLA and EOMI. ENT: Nares clear, no rhinorrhea or epistaxis. Mucous membranes moist. NECK: Supple. CHEST: Clear to auscultation. No respiratory distress. HEART: Regular rate and rhythm. No murmur heard. Normal peripheral pulses. ABDOMEN: Soft, nontender, nondistended, normal active bowel sounds. EXTREMITIES: Normal range of motion. No edema. SKIN: Warm, dry, no rash. NEURO: No focal deficits. Alert and oriented x3. PSYCH: Normal mood and affect. Course Course Emergency Course: EKG sinus rhythm rate of [address] or ST depression Chest x-ray, mild medical infiltration Vital Signs Vital signs: Vital Signs Temperature 36.3 C L 09/18/21 00:50 Pulse Rate 71 09/18/21 00:50 Respiratory Rate 18 09/18/21 00:50 Pulse Oximetry 100 09/18/21 00:50 Temperature 36.3 C L 09/18/21 00:50 Pulse Rate 70 09/18/21 03:10 Respiratory Rate 18 09/18/21 03:10 Blood Pressure 100/69 09/18/21 03:10 Pulse Oximetry 99 09/18/21 03:12 Medical Decision Making Vital Signs Vital Signs: Vital Signs Temperature 36.3 C L 09/18/21 00:50 Pulse Rate 71 09/18/21 00:50 Respiratory Rate 18 09/18/21 00:50 Pulse Oximetry 100 09/18/21 00:50 Temperature 36.3 C L 09/18/21 00:50 Pulse Rate 70 09/18/21 03:10 Respiratory Rate 18 09/18/21 03:10 Blood Pressure 100/69 09/18/21 03:10 Pulse Oximetry 99 09/18/21 03:12 Lab Data Result diagrams: 09/18/21 03:46 09/18/21 03:46 Labs: Lab Results 09/18/21 09/18/21 09/18/21 Range/Units 03:46 03:46 03:46 WBC 7.7 (4.5-10.0) K/mm3 RBC 4.60 (4.2-5.4) M/mm3 Hgb 13.2 (12.0-15.0) g/dL Hct 40.5
[2021-09-18 04:17] LABS: NT Pro B Type Natriuretic Pept 27 pg/mL (5-100); Troponin I < 0.012 ng/mL (0.000-0.034)
[2021-09-18 05:10] VITALS: BP 100/67; PULSE 67; RESP 14; O2SAT 98
== END 2021-09-18 05:11 | disposition home or self-care (01) ==
PROVIDERS: Emergency Provider Emergency Medicine; PCP Family Medicine
DX: R07.89 Other chest pain (principal); Z87.442 Personal history of urinary calculi
CPT/HCPCS: 36415; 71045; 80053; 83880; 84484; 85025; 85380; 85610; 85730; 93005; 99284

== ENCOUNTER 2021-09-28 02:30 | Outpatient (CLI) | payer BC, SELFPAY ==
[2021-09-25 10:28] VITALS: BMI 30.1
--- NOTE | 2021-09-25 10:37 | PC.NURSE ---
Report to the Outpatient Waiting Room, entrance under the green pavilion located off [facility], at time 0900 on date 09/28/21. OR Time: 1100. - You will be asked a series of questions to screen for COVID 19 for your protection. - A mask is required within the hospital. - No visitors are allowed at this time. Preoperative COVID Testing Requirements: No COVID Test needed if: (proof is required; if not received patient will have Rapid Test prior to entry) - Patient has received COVID Vaccine at least 14 days prior to procedure date or - Patient has positive COVID test result within last 90 days of surgery date. COVID Test needed if above criteria is not met - No food/DRINK FOR 6 HOURS PRIOR TO PROCEDURE Take the following medications with a SIP of water the morning of surgery: NONE Medications to discontinue per physician: N/A Date to take last dose: N/A Please no make-up, nail ukrainian, hairspray, perfume, deodorant, or body powder the day of surgery. No jewelry (including any body piercings) or valuables the day of surgery, leave them at home. Please take a shower or bath the night before, or the morning of, surgery with an antibacterial soap. Wear comfortable, loose fitting clothing. - Jewelry must be removed prior to entering the operating room. Rings and piercings that are not removed may be cut off. - The hospital will not accept responsibility for valuables. - Please leave all valuables, including medications, at home the day of surgery. If you are going home after surgery, a licensed spotter driver must drive you home. - NO public transportation without another adult. - We recommend that an adult stay with you for 24 hours following discharge. - We also recommend that you do not drive, make important decision, drink alcoholic beverages, or take any drugs that were not prescribed by your health care provider for at least 24 hours after your discharge time. Follow any additional instructions given to you from your surgeon. Telephone instructions given to JACOBY HARVEY and asked if any additional questions and then verbalized understanding. Patient advised to call surgeon office or pre surgery nurse liaison [phone] if any additional questions.
[2021-09-28] VITALS (9 sets, daily range): BP systolic 89–127; BP diastolic 54–69; PULSE 56–81; RESP 16–22; TEMP 36.9; O2SAT 97–100
--- NOTE | ~2021-09-28 | XR_ITS ---
EXAMINATION: XR chest 1V portable DATE: 09/28/2021 14:42 INDICATION: 3 hours post left lung percutaneous biopsy TECHNIQUE: frontal view of the chest was obtained. COMPARISON: Chest radiograph dated 09/28/2021 FINDINGS: Nodular opacity medial left lung base. No other airspace opacities, pulmonary edema, pleural effusion or pneumothorax. The cardiomediastinal silhouette is normal. Visualized bones and soft tissues are u nremarkable. IMPRESSION: 1. Resolution of prior small amount of pulmonary hemorrhage post percutaneous biopsy of an indetermin ate left lower lobe nodule which could be either benign or malignant. No pneumothorax. Reviewed, dictated and finalized at location A. TE SENSING RESEARCH SCIENTIST IMPRESSION: 1. Resolution of prior small amount of pulmonary hemorrhage post percutaneous b iopsy of an indeterminate left lower lobe nodule which could be either benign o r malignant. No pneumothorax.
--- NOTE | ~2021-09-28 | CT_ITS ---
EXAMINATION: CT biopsy lung w/imaging DATE: 09/28/2021 11:50 INDICATION: Left lung mass TECHNIQUE: The procedure including the risks and benefits was discussed with the patient. Risks discu ssed included infection, approximately 1/20 risk of symptomatic hemorrhage beyond mild hemoptysis, ap proximately 1/3 risk of pneumothorax, and approximately 1/10 risk of pneumothorax severe enough to wa rrant chest tube placement. The patient understood the risks and agreed to proceed. The patient was p laced prone. The skin overlying the left paraspinal lower thorax was prepped and draped in sterile f ashion. Anesthetic was administered with 1% lidocaine subcutaneously. A 19 gauge outer needle was a dvanced under CT guidance to the lesion of interest. A 20 gauge core biopsy needle was then used to o btain 5 core biopsy specimens. The needle was removed and the entry site was cleaned and dressed. Th ere were no immediate complications. The dose-length product was 181.15 mGy-cm. FINDINGS: CT images demonstrate the outer needle tip adjacent to a 1.3 cm nodule at the posterior sul cus of the left lower lobe. IMPRESSION: 1. Successful CT-guided biopsy of a 1.3 cm left lower lobe nodule. Reviewed, dictated and finalized at location A. O LAB MANAGER
--- NOTE | ~2021-09-28 | XR_ITS ---
EXAMINATION: XR chest 1V DATE: 09/28/2021 11:37 INDICATION: Status post percutaneous left lung biopsy TECHNIQUE: frontal view of the chest was obtained. COMPARISON: Chest radiograph dated 09/18/2021 FINDINGS: Mild groundglass opacity left vertebral phrenic angle surrounding the biopsied left lower lobe nodule consistent with small amount of postbiopsy hemorrhage. Remainder of the lungs are clear. No pneumoth orax or pleural effusion. The cardiomediastinal silhouette is normal. Visualized bones and soft tissu es are unremarkable. IMPRESSION: 1. Minimal pulmonary hemorrhage with no pneumothorax or pleural effusion post percutaneous biopsy of a left lower lobe nodule. Reviewed, dictated and finalized at location A. THCARE NETWORK CONSULTANT IMPRESSION: 1. Minimal pulmonary hemorrhage with no pneumothorax or pleural effusion post p ercutaneous biopsy of a left lower lobe nodule.
--- NOTE | ~2021-09-28 | XR_ITS ---
EXAMINATION: XR chest 1V portable DATE: 09/28/2021 12:31 INDICATION: One hour post percutaneous left lung biopsy TECHNIQUE: frontal view of the chest was obtained. COMPARISON: Chest radiograph dated 09/28/2021 FINDINGS: Biopsied pulmonary nodule is seen at the medial left lung base still with poorly defined margins cons istent with minimal surrounding pulmonary edema. Remainder of the lungs are clear. No pleural effusio n or pneumothorax. Cardiomediastinal silhouette is normal. IMPRESSION: 1. Minimal residual pulmonary hemorrhage along the margins of the biopsied left lower lobe nodule. No pneumothorax. Reviewed, dictated and finalized at location A. RAL GAS TRADER
--- NOTE | 2021-09-28 09:07 | SUR.PREOP ---
08 call to patient to make her aware ride home is needed she states friend Leia [phone] will be available later today this RN called no answer left message. call to report to Dr Ferrara who states can proceed with lab testing but will need confirmation prior to start of scheduled procedure. 911 friend called back to confirm she will be ride home radiology informed.
[2021-09-28 09:50] LABS: Mean Platelet Volume 10.7 fl (7.4-10.4); Platelet Count Result 232 k/mm3 (150-375)
[2021-09-28 10:08] LABS: INR 0.9; Prothrombin Time 12.2 Seconds (11.1-14.7)
[2021-09-28] MEDS: MORPHINE SULFATE (*CRX) 2 MG/ML INJ 1 MG IV PUSH (11:45)
[2021-09-28] MEDS: ACETAMINOPHEN 500 MG TABLET PO (12:03)
[2021-09-28] MEDS: oxyCODONE HCL (*CRX) 5 MG TAB IR PO (13:51)
--- NOTE | 2021-09-28 13:53 | SUR.PHASEII ---
D/C INSTRUCTIONS FOR LUNG BIOPSY PRINTED AND GIVEN TO PATIENT.
--- NOTE | 2021-09-28 14:31 | SUR.PHASEII ---
PORTABLE CXR DONE.
--- NOTE | 2021-09-28 14:59 | SUR.PHASEII ---
6118 DR. PIÑA UPDATED RE: PATIENT'S PAIN.
--- NOTE | 2021-09-28 15:00 | SUR.PHASEII ---
5534 PATIENT CALM STATES PAIN IS 8/10. WILL GIVE OXYCODONE.
--- NOTE | 2021-09-28 15:25 | SUR.PHASEII ---
PATIENT DRESSED WAITING FOR HER RIDE. NO DISTRESS. EATING A SNACK.
--- NOTE | 2021-09-28 15:29 | SUR.PHASEII ---
1520 DR. PIÑA CAME TO SEE PT.
== END 2021-09-28 16:15 | disposition home or self-care (01) ==
PROVIDERS: Radiology Diagnostic Radiology; PCP Family Medicine; Visit Provider Nurse Practitioner Family
PROC: BB24ZZZ Computerized Tomography (CT Scan) of Bilateral Lungs (ICD-10-PCS; CPT 32408; principal; 2021-09-28 11:00)
DX: R91.1 Solitary pulmonary nodule (principal)
CPT/HCPCS: 32408; 36415; 71045; 85049; 85610; 88305; A9270; J2270

== ENCOUNTER 2021-10-27 14:23 | Outpatient (CLI) | payer BC, SELFPAY ==
--- NOTE | ~2021-10-27 | MM_ITS ---
EXAMINATION: MM screening katheryn BI w katherine HISTORY: Screening TECHNIQUE: Craniocaudal and mediolateral oblique 3-D tomosynthesis images were obtained and synthetic 2-D images were generated. CAD analysis was submitted and interpreted. COMPARISON: No prior mammogram is available for comparison at this institution. BREAST PARENCHYMAL COMPOSITION: Breast composed of scattered areas of fibroglandular density FINDINGS: There is a mass in the upper outer quadrant of the right breast. There are no suspicious ma sses, calcifications or architectural distortion in the left breast to suggest malignancy. IMPRESSION: 1. Abnormal mass upper outer quadrant of the right breast posteriorly. 2. Additional mammographic views and possible breast ultrasound are recommended. BI-RADS Category 0: Incomplete: Needs additional imaging evaluation. Reviewed, dictated and finalized at location A. CLING COLLECTIONS DRIVER IMPRESSION: 1. Abnormal mass upper outer quadrant of the right breast posteriorly. 2. Additional mammographic views and possible breast ultrasound are recommended . BI-RADS Category 0: Incomplete: Needs additional imaging evaluation.
== END 2021-10-27 14:24 | disposition home or self-care (01) ==
PROVIDERS: PCP Family Medicine; Visit Provider Nurse Practitioner Family
DX: Z12.31 Encounter for screening mammogram for malignant neoplasm of breast (principal); R92.8 Other abnormal and inconclusive findings on diagnostic imaging of breast
CPT/HCPCS: 77063; 77067

== ENCOUNTER 2021-11-24 12:04 | Outpatient (CLI) | payer BC, SELFPAY ==
--- NOTE | ~2021-11-24 | MMUS_ITS ---
EXAMINATION: MM diagnostic katheryn RT w katherine, US breast RT limited HISTORY: Right breast mass on screening mammogram TECHNIQUE: Additional 3-D tomosynthesis images of the right breast were performed and synthetic 2-D i mages were generated. CAD analysis was submitted and interpreted. High resolution limited right breas t ultrasound was performed. COMPARISON: 10/27/2021, 10/24/2016 BREAST PARENCHYMAL COMPOSITION: There are scattered areas of fibroglandular density. FINDINGS: MAMMOGRAPHIC FINDINGS: There is a 7 mm round, obscured, equal density mass in the posterior third of the outer breast at the 9:00 location 12 cm from the nipple. ULTRASOUND: There is a 7 mm cyst with thin internal septations at the 9:00 location 9 cm from the nipple. A 3 mm cyst is noted at the 9:00 location 8 cm from the nipple. IMPRESSION: 1. No mammographic or sonographic evidence of malignancy. 2. Recommend routine screening mammography in one year. BI-RADS Category 2: Benign finding(s). Reviewed, dictated and finalized at location A. IMPRESSION: 1. No mammographic or sonographic evidence of malignancy. 2. Recommend routine screening mammography in one year. BI-RADS Category 2: Benign finding(s).
== END 2021-11-24 12:05 | disposition home or self-care (01) ==
LOC: ANHIMG 12:05
PROVIDERS: PCP Family Medicine; Visit Provider Physician Assistant Medical
DX: R92.8 Other abnormal and inconclusive findings on diagnostic imaging of breast (principal)
CPT/HCPCS: 76642; 77061; 77065; G0279

== ENCOUNTER 2022-01-23 00:47 | Day surgery (SDC) | payer OTHER, SELFPAY ==
[2021-11-23 09:47] VITALS: BMI 27.5
[2022-01-11 13:51] VITALS: BMI 27.5
--- NOTE | 2022-01-11 13:55 | PC.NURSE ---
pt denies any changes to medical hx or medications since last PAT call. new date and time of procedure verified with pt. denies further questions.
[2022-01-23 07:23] VITALS: BP 94/58; PULSE 61; RESP 18; TEMP 36.1; O2SAT 100
[2022-01-23] MEDS: LACTATED RINGERS 1,000 ML 150 ML IV CONT (07:37)
--- NOTE | 2022-01-23 08:03 | SUR.PREOP ---
SPOKE WITH DR. BUSCH REGARDING PATIENTS BP. PATIENT STATES BP IS NORMAL TO RUN LOW. PER DR. BUSCH GIVE PATIENT 500ML BOLUS OF LR BEFORE PROCEDURE. INFUSING AT THIS TIME.
--- NOTE | 2022-01-23 08:11 | WPDANESEPPF ---
Anes - Initial Pre Proc Eval Procedure: Operation Date: 01/23/22 08:30 Proposed Procedures p Screening Colonoscopy - Homero Brennan MD Date/Time: 01/23/22 08:11 Surgeon: Homero Brennan MD Pre Op Diagnosis: neoplasm screening Patient Data Age: 46 Gender: F Height: 1.63 m Weight: 72.7 kg Last Vital Signs Temp 97.0 F L 01/23/22 07:23 Pulse 61 01/23/22 07:23 Resp 18 01/23/22 07:23 BP 94/58 L 01/23/22 07:23 Pulse Ox 100 01/23/22 07:23 Allergies Allergy/AdvReac Type Severity Reaction Status Date / Time Penicillins Allergy Unknown Unknown Verified 01/23/22 07:22 Home Medications Medication Instructions Recorded Confirmed Type No Home Medications 09/25/21 12/06/21 History Patient hx anesthesia problems: none Family hx anesthesia problems: none Results Review: All pre-operative results and documents have been reviewed as part of the pre-operative evaluation. [facility] Past Medical History Medical History Abnormal screening mammogram BMI 30.0-30.9,adult BMI 36.0-36.9,adult BMI over 35 Kidney stone Lung nodule seen on imaging study Overweight with body mass index (BMI) of 28 to 28.9 in adult Family History Family History Father No problems noted. 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 Informed Consent: The patient's anesthetic plan and its attendant risks and benefits were discussed with the patient/family/POA. Questions were solicited and answers provided to the satisfaction of the patient/family/POA.
--- NOTE | 2022-01-23 08:27 | PM.HPGS ---
History of Present Illness History of Present Illness Consent: Risks, benefits, and alternatives have been discussed and questions answered. Patient agrees to proceed with procedure. Chief complaint: neoplasm screening Narrative: Bianka Dai is a 46 year old female here for first screening colonoscopy Review of Systems Constitutional: Constitutional: Denies headache(s) and Denies weakness Eyes: Eyes: Denies blurry vision ENT: Reports Normal hearing present, Denies headache(s) and Denies neck pain Cardiovascular: Cardiovascular: Denies chest pain and Denies dyspnea Respiratory: Respiratory: Denies dyspnea Gastrointestinal: Gastrointestinal: Reports no additional gastrointestinal complaints Genitourinary: Genitourinary: Denies dysuria Musculoskeletal: Musculoskeletal: Denies neck pain Integumentary/Breasts: Skin/Breast: Denies dry skin Neurologic: Reports Normal hearing present, Denies headache(s) and Denies weakness Psychiatric: Psychiatric: Denies anxiety Endocrine: Endocrine: Denies change in body appearance Hematologic/Lymphatic: Hematologic/Lymphatic: Denies easy bleeding Allergic/Immunologic: Allergic/Immunologic: Denies urticaria PMF Past Medical History Medical History Abnormal screening mammogram BMI 30.0-30.9,adult BMI 36.0-36.9,adult BMI over 35 Kidney stone Lung nodule seen on imaging study Overweight with body mass index (BMI) of 28 to 28.9 in adult Family History Family History Father No problems noted. 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 Gender identity (if verbalized by the patient): Female Spiritual care concerns: No Meds Home Medications and Allergies Home Medications Medication Instructions Recorded Confirmed Type No Home Medications 09/25/21 12/06/21 History Allergies Allergy/AdvReac Type Severity Reaction Status Date / Time Penicillins Allergy Unknown Unknown Verified 01/23/22 07:22 Vital Signs Vital Signs - 24 hr 01/23/22 07:23 Temperature 97.0 F L Pulse Rate 61 Respiratory Rate 18 Blood Pressure 94/58 L Pulse Oximetry 100 Exam Const: General: comfortable and no acute distress HENMT: General nose exam: Normal nares present Eyes: General: appearance normal, both eyes and all related structures Neck: Neck: no JVD Resp: Auscultation: clear to auscultation bilaterally Cardio: Rate: regular rate Rhythm: regular rhythm GI: Inspection: non-distended GI Palp: Yes Soft to palpation Skin: General skin exam: normal color Neuro: General: gait normal Speech: normal speech Extrem: General: normal to inspection Psych: Mental Status: mental status grossly normal Assessment and Plan Assessment and plan (1) Screening for malignant neoplasm of colon: Code(s): Z12.11 - Encounter for screening for malignant neoplasm of colon Status: Acute Assessment and Plan: colonoscopy
[2022-01-23 08:43] VITALS: BP 93/57; PULSE 71; RESP 13; O2SAT 100
[2022-01-23 08:53] VITALS: BP 104/67; PULSE 68; RESP 18; O2SAT 100
[2022-01-23 09:03] VITALS: BP 104/67; PULSE 64; RESP 14; O2SAT 100
== END 2022-01-23 09:14 | disposition home or self-care (01) ==
PROVIDERS: PCP Family Medicine; Visit Provider Internal Medicine Gastroenterology
PROC: 0DJD8ZZ Inspection of Lower Intestinal Tract, Via Natural or Artificial Opening Endoscopic (ICD-10-PCS; CPT 45378; principal; 2022-01-23 08:30)
DX: Z12.11 Encounter for screening for malignant neoplasm of colon (principal); K64.8 Other hemorrhoids
CPT/HCPCS: 45378; J2704; J7120

== ENCOUNTER 2022-03-24 19:06 | Emergency (ER) | payer OTHER, SELFPAY ==
--- NOTE | ~2022-03-24 | CT_ITS ---
EXAMINATION: CTA chest PE protocol DATE: 03/24/2022 21:17 INDICATION: lung ressection on 03/13 now worsening pain eval for TECHNIQUE: Computed tomography angiography (CTA) of the chest was performed with 100 mL Omnipaque-350 intravenous contrast timed to evaluate the pulmonary arteries. Coronal maximum intensity projection 3D-reconstructions were created by the technologist. The dose-length product (DLP) was 287.21 mGy-cm. Automated exposure control and iterative reconstruction technique were employed. COMPARISON: PET CT 09/14/2021. FINDINGS: Study quality: Adequate. Pulmonary arteries: No pulmonary emboli detected. Thoracic aorta: Normal. Lung parenchyma and airways: Postsurgical change in the posterior left lower lobe, otherwise clear. Thoracic inlet, axillae and chest wall: Unremarkable. Mediastinum: Normal. Prominent bilateral hilar lymph nodes. Heart and pericardium: Normal. Coronary artery calcifications: Absent. Pleura: Unremarkable. Upper abdomen: No significant finding. Bones: No acute osseous finding. IMPRESSION: No CT evidence of acute pulmonary embolus. Reviewed, dictated and finalized at location K.
[2022-03-24 19:07] VITALS: BP 123/79; PULSE 125; RESP 18; TEMP 36.3; O2SAT 100
--- NOTE | 2022-03-24 19:47 | ECG_ITS ---
Measurements Intervals [place] Rate: 101 P: 46 DE: 134 QRS: 26 QRSD: 86 T: 39 QT: 330 QTc: 428 Interpretive Statements SINUS TACHYCARDIA POSSIBLE LEFT ATRIAL ENLARGEMENT RSR' IN V1 OR V2, CONSIDER RIGHT VENTRICULAR HYPERTROPHY OR RIGHT VCD BORDERLINE ECG Electronically Signed On 03-24-2022 21:20:51 CDT by Randall Dillon D.O.
--- NOTE | 2022-03-24 19:51 | ED.GENADULT ---
HPI - General Adult General Chief complaint: Recheck/Abnormal Lab/Rx Stated complaint: POST OP COMPLICATIONS Time Seen by Provider: 03/24/22 19:40 History of Present Illness HPI narrative: Patient 46-year-old female presents the emergency department with chief complaint of left-sided chest pain. Patient reports that on the fifth of last month she had a wedge resection for a mass in her left lower lobe there was concern for carcinoid. Patient was found to not have carcinoid or any malignant neoplasm and has been doing okay patient states has been Slowly weaning her pain medications off and then in the last 24 hours started having pain that was worsening the patient states the pain is a sharp type pain worse with inspiration and improved with rest. Patient states she has felt hot but denies any true fever patient denies drainage or redness from the sites patient states she attempted to call the on-call thoracic surgeon at [place] where she had surgery but they did not respond to her calls. Related Data Allergies Allergy/AdvReac Type Severity Reaction Status Date / Time Penicillins Allergy Unknown Unknown Verified 03/24/22 19:15 Review of Systems Review of Systems: A 10 system review of systems was completed on the patient and is negative except for what is stated in the HPI. Nursing and ancillary documentation was reviewed. PMF[facility] Past Medical History Medical History Abnormal screening mammogram BMI 30.0-30.9,adult BMI 36.0-36.9,adult BMI over 35 Kidney stone Lung nodule seen on imaging study Overweight with body mass index (BMI) of 28 to 28.9 in adult Family History Family History Father No problems noted. 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 HEAD: Normocephalic, atraumatic. EYES: PERRLA and EOMI. ENT: Nares clear, no rhinorrhea or epistaxis. Mucous membranes moist. NECK: Supple. CHEST: Clear to auscultation. No respiratory distress. HEART: Regular rate and rhythm. No murmur heard. Normal peripheral pulses. ABDOMEN: Soft, nontender, nondistended, normal active bowel sounds. EXTREMITIES: Normal range of motion. No edema. SKIN: Warm, dry, no rash. NEURO: No focal deficits. Alert and oriented x3. PSYCH: Normal mood and affect. Course Course Emergency Course: Chest CT showed no evidence of pulmonary embolism or abscess or other intrathoracic pathology. The patient's laboratory studies showed a UTI the patient will be started on p.o. Bactrim. Patient follow-up with her thoracic surgeon this week if she continues to have pain. Vital Signs Vital signs: Vital Signs Temperature 36.3 C L 03/24/22 19:07 Pulse Rate 125 H 03/24/22 19:07 Respiratory Rate 18 03/24/22 19:07 Blood Pressure 123/79 03/24/22 19:07 Pulse Oximetry 100 03/24/22 19:07 Oxygen Delivery Room Air 03/24/22 19:07 Temperature 36.3 C L 03/24/22 19:07 Pulse Rate 125 H 03/24/22 19:07 Respiratory Rate 18 03/24/22 19:07 Blood Pressure 123/79 03/24/22 19:07 Pulse Oximetry 100 03/24/22 19:07 Oxygen Delivery Room Air 03/24/22 19:07 Medical Decision Making Vital Signs Vital Signs: Vital Signs Temperature 36.3 C L 03/24/22 19:07 Pulse Rate 125 H 03/24/22 19:07 Respiratory Rate 18 03/24/22 19:07 Blood Pressure 123/79 03/24/22 19:07
[2022-03-24] MEDS: MORPHINE SULFATE (*CRX) 4 MG/ML INJ IV PUSH (20:21)
[2022-03-24 20:25] LABS: Basophils Absolute Auto 0.1 K/mm3 (0.0-0.1); Basophils Percent Auto 1.2 % (0.2-1.2); Eosinophils Absolute Auto 0.4 K/mm3 (0-0.3); Eosinophils Percent Auto 4.9 % (0-4.4); Hematocrit 41.1 % (37.0-47.0); Hemoglobin 13.3 g/dL (12.0-15.0); Immature Granulocyte Absolute 0.04 K/mm3 (0.00-0.031); Immature Granulocyte Percent A 0.5 % (0-0.5); Lymphocytes Absolute Auto 2.41 K/mm3 (0.9-3.2); Lymphocytes Percent Auto 32.8 % (18.3-44.2); Mean Corpuscular HGB Conc 32.4 g/dl (32-36); Mean Corpuscular Volume 89.5 fl (80-100); Monocytes Absolute Auto 0.6 K/mm3 (0.1-0.6); Neutrophils Absolute Auto 3.9 K/mm3 (1.3-6.7); Neutrophils Percent Auto 52.6 % (45.5-73.1); Platelet Count Result 282 k/mm3 (150-375); Red Blood Count 4.59 M/mm3 (4.2-5.4); Red Cell Distribution Width 13.1 % (11.5-14.5); White Blood Count 7.3 K/mm3 (4.5-10.0)
[2022-03-24 20:33] LABS: Magnesium 1.9 mg/dL (1.6-2.3)
[2022-03-24 20:34] LABS: Alanine Aminotransferase 94 U/L (6-35); Albumin Level 4.1 g/dL (3.5-5.1); Alkaline Phosphatase 100 U/L (38-126); Anion Gap 6 mmol/L (8-16); Aspartate Amino Transferase 51 U/L (14-36); Bilirubin,Total 0.2 mg/dL (0.2-1.3); Blood Urea Nitrogen 19 mg/dL (7-17); Calcium 8.8 mg/dL (8.4-10.2); Carbon Dioxide 27 mmol/L (22-30); Chloride 105 mmol/L (98-107); Estimated CRCL calculation 104 ml/min; Estimated Glomerular Filt Rate > 60; Glucose 106 mg/dL (65-110); Lactic Acid Reflex 1.5 mmol/L (0.7-2.0); Potassium 4.4 mmol/L (3.4-5.0); Sodium 138 mmol/L (137-145)
[2022-03-24 20:35] LABS: Partial Thromboplastin Time 32.6 SECONDS (22.3-36.8); Prothrombin Time 12.3 Seconds (11.1-14.7)
[2022-03-24 20:43] LABS: NT Pro B Type Natriuretic Pept 22 pg/mL (5-100)
[2022-03-24 20:46] LABS: Troponin I < 0.012 ng/mL (0.000-0.034)
[2022-03-24 21:01] LABS: Influenza A QL RT-PCR Negative (Negative); Influenza B QL RT-PCR Negative (Negative); SARS-CoV-2 RNA PCR Negative
[2022-03-24 21:14] LABS: Appearance Urine Clear (Clear); Bilirubin Urine Negative (Negative); Blood Urine Negative (Negative); Color Urine Yellow (Yellow); Glucose Urine UA Negative (Negative); Ketones Urine Negative (Negative); Leukocyte Esterase Ur 3+ LEU/UL (Negative); Nitrate Urine Negative (Negative); Protein Urine Negative (Negative); Urobilinogen Urine 0.2 mg/dL (<2.0); pH Urine 5.5 (5.0-9.0)
[2022-03-24 21:18] LABS: Add Urine Microscopic? YES; Bacteria Urine Trace /hpf; Mucus Urine Rare /lpf; Squamous Epithelial Cell Urine Few /hpf (Few); WBC Urine 51-75 /hpf
[2022-03-24] MEDS: HYDROmorphone HCL INJ (*CRX) 1 MG/ML SYR 0.5 MG IV PUSH (21:46)
== END 2022-03-24 21:52 | disposition home or self-care (01) ==
PROVIDERS: Emergency Provider Emergency Medicine; PCP Family Medicine
DX: G89.18 Other acute postprocedural pain (principal); R07.9 Chest pain, unspecified; N39.0 Urinary tract infection, site not specified; Z20.822 Contact with and (suspected) exposure to COVID-19; Z87.442 Personal history of urinary calculi; E66.3 Overweight; Z68.30 Body mass index [BMI] 30.0-30.9, adult
CPT/HCPCS: 36415; 71275; 80053; 81001; 83605; 83735; 83880; 84484; 85025; 85610; 85730; 87086; 87088; 87502; 93005; 96374; 96375; 99284; A9270; C9803; J1170; J2270; Q9967; U0003; U0005

== ENCOUNTER 2022-11-07 09:01 | Outpatient (CLI) | payer OTHER, SELFPAY ==
--- NOTE | 2022-11-07 11:00 | NEURO_ITS ---
Impression: Patient reports a history of bilateral upper extremity pain. # Moderate bilateral Carpal Tunnel Syndrome. # Normal needle/EMG exam. # Clinical correlation recommended. Motor Nerve Conduction Upper Extremities Median Nerve Conduction Velocity (m/sec) Terminal Latency (msec) Response Voltage(mV) Elbow-Wrist Wrist Elbow Wrist Right 50 4.9 3 3 Left 55 4.5 1 2 Ulnar Nerve Conduction Velocity (m/sec) Terminal Latency (msec) Response Voltage(mV) Above Elbow Below Elbow Wrist Above Elbow Below Elbow Wrist Right 55 54 2.0 6 5 6 Left 57 55 2.1 6 5 5 F-Wave Latency Median (ms) Ulnar (ms) Right 25.7 24.3 Left 26.0 24.3 Sensory Nerve Conduction Upper Extremities Median Nerve Stimulation Terminal Latency (msec) Wrist/Digit Response Voltage (uV) Wrist Right 4.0/4.9 30/15 Left 4.0/4.2 41/41 Ulnar Nerve Stimulation Terminal Latency (msec) Wrist/Digit Response Voltage (uV) Wrist Right 2.5 36 Left 2.5 50 Radial Nerve Terminal Latency (msec) Response Voltage(mV) Right 2.2 61 Left 2.0 49 Left Right Muscles Examined Fibrillation Fasciculation Scarcity Voltage Duration Left Right Left Right Left Right Left Right Left Right Deltoid Biceps X X Brachioradialis Triceps X X Pronator Teres X X Ext Indicis X X Ext Digitorum X X Abd Poll Brev X X 1st Dorsal Interosseus Paraspinals MTDD
== END 2022-11-07 09:02 | disposition home or self-care (01) ==
LOC: ANHNEURO 09:02
PROVIDERS: PCP Family Medicine; Visit Provider Physician Assistant Medical
DX: G56.03 Carpal tunnel syndrome, bilateral upper limbs (principal)
CPT/HCPCS: 95886; 95911

== ENCOUNTER 2022-12-17 00:18 | Day surgery (SDC) | payer OTHER, SELFPAY ==
[2022-12-12 14:39] VITALS: BMI 30.7
--- NOTE | 2022-12-12 14:44 | PC.NURSE ---
Report to the Outpatient Waiting Room, entrance under the green pavilion located off [facility], at time 0800 on date 12/17/22. Planned Procedure Time: 1000. Time changes happen often and if your time is changed the preop area will call you the afternoon before. - You and your visitor will be asked to self-screen and do not enter if you have any COVID symptoms. - Only one visitor is requested with a max of two and NO children visitors are allowed at this time. - The patient visitor may be requested to leave or wait in car when not with patient due to distancing restrictions. - A mask is optional within the hospital at this time. Patients may have clear liquids (water, carbonated beverages, clear teas, apple juice) until 3 hours prior to surgery with a maximum of 20 ounces. 0700 - No food from midnight until time of surgery - Infants may have breast milk until 4 hours before surgery, formula 6 hours prior to surgery. - Children will be allowed to drink immediately following surgery. If applicable, please bring a bottle or sippy cup to assist with drinking. Juice, water, soda, and popsicles are readily available. For infants on formula, please bring formula the day of surgery. Pacifiers are allowed. Take the following medications with a SIP of water the morning of surgery: N/A DO NOT STOP ANY OF YOUR OTHER PRESCRIPTION MEDICATIONS PRIOR TO SURGERY ?EXCEPT THE FOLLOWING Medications to discontinue per physician N/A Date to take last dose N/A Please no make-up, nail djiboutian, hairspray, perfume, deodorant, or body powder the day of surgery. No jewelry (including any body piercings) or valuables the day of surgery, leave them at home. Please take a shower or bath the night before, or the morning of, surgery with an antibacterial soap. Wear comfortable, loose fitting clothing. Children are encouraged to wear pajamas. - Jewelry must be removed prior to entering the operating room. Rings and piercings that are not removed may be cut off. - The hospital will not accept responsibility for valuables. - Please leave all valuables, including medications, at home the day of surgery. If you are going home after surgery, a licensed local delivery driver must drive you home. - NO public transportation without another adult if you receive anesthesia. - We recommend that an adult stay with you for 24 hours following discharge. - We also recommend that you do not drive, make important decision, drink alcoholic beverages, or take any drugs that were not prescribed by your health care provider for at least 24 hours after your discharge time. For Pediatric surgeries, we recommend two adults accompany the child home. Follow any additional instructions given to you from your surgeon. If you or anyone in your household have experienced Covid symptoms in the past week, please notify your surgeon or the nurse liaison at the phone number below for possible testing. Telephone instructions given to Bianka Dai and asked if any additional questions and then verbalized understanding. Patient advised to call surgeon office or pre surgery nurse liaison [phone] if any additional questions.
[2022-12-17 08:23] VITALS: BP 105/66; PULSE 84; RESP 18; TEMP 36.7; O2SAT 100
--- NOTE | 2022-12-17 08:38 | WPDANESEPPF ---
Anes - Initial Pre Proc Eval Procedure: Operation Date: 12/17/22 10:00 Proposed Procedures p Left Carpal Tunnel Release - Renaldo Soliz MD Date/Time: 12/17/22 08:38 Surgeon: Renaldo Soliz MD Pre Op Diagnosis: left carpal tunnel syndrome Patient Data Age: 47 Gender: F Height: 1.63 m Weight: 81.3 kg Allergies Allergy/AdvReac Type Severity Reaction Status Date / Time Penicillins Allergy Unknown Unknown Verified 12/17/22 08:52 Patient hx anesthesia problems: none Family hx anesthesia problems: none Results Review: All pre-operative results and documents have been reviewed as part of the pre-operative evaluation. [facility] Past Medical History Medical History Abnormal screening mammogram BMI 29.0-29.9,adult BMI 30.0-30.9,adult BMI 36.0-36.9,adult BMI over 35 Kidney stone Lung nodule seen on imaging study Overweight with body mass index (BMI) of 28 to 28.9 in adult Surgical History Surgical History History of laminectomy History of lobectomy of lung Family History Family History Father No problems noted. 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 - [employer] Gender identity (if verbalized by the patient): Female Spiritual care concerns: No Anes - Eval Final PreProcedure Day of Procedure 12/17/22 08:38 Patient weight: obese Heart: regular rate and rhythm Lungs: clear to auscultation Airway: Mallampati scale class II Neurological: alert and oriented Last oral intake: >/= 8 hours ASA classification: II Emergent: no Anesthetic plan: proceed Anesthesia type and monitoring: general GIVS and standard monitoring Results Review: All pre-operative results and documents have been reviewed as part of the pre-operative evaluation. Informed Consent: The patient's anesthetic plan and its attendant risks and benefits were discussed with the patient/family/POA. Questions were solicited and answers provided to the satisfaction of the patient/family/POA.
[2022-12-17] MEDS: LACTATED RINGERS 1,000 ML 30 ML IV CONT (09:00)
--- NOTE | 2022-12-17 09:02 | WPDHPUPDATE1 ---
History and Physical Update Update Date/Time: 12/17/22 09:02 History and Physical has been reviewed, including an updated exam of the patient. There are NO changes in the patient's condition. Risks, benefits, and alternatives have been discussed and questions answered. Patient agrees to proceed with procedure.
[2022-12-17] MEDS: KETOROLAC 15 MG/ML VIAL (*BKC) IV PUSH (09:12)
[2022-12-17] MEDS: ACETAMINOPHEN 500 MG TABLET 1000 MG PO (09:13)
[2022-12-17] MEDS: ceFAZolin 2 GM/D5W 50 ML 2 GM/50 ML BAG IVPB (09:25)
[2022-12-17] MEDS: BUPIVACAINE/EPINEPHRINE 0.5% 50 ML VIAL 10 ML INFILTRATE (09:49)
[2022-12-17 10:02] VITALS: BP 98/60; PULSE 84; RESP 12; O2SAT 100
--- NOTE | 2022-12-17 10:07 | P.OP_ITS ---
Procedure Note - Detailed Date of Procedure 12/17/22 Pre-op Diagnosis left carpal tunnel syndrome Post-op Diagnosis Same Procedure Performed left carpal tunnel release Surgeon Renaldo Soliz MD Marine Firefighter Curly Kwan Anesthesia MAC and Local Description of Procedure The patient was identified and proper side identified. After being taken to the operating room and transferred to the OR table, a nonsterile tourniquet was placed high on the left upper extremity, which was prepped and draped in the usual sterile fashion. After IV sedation was administered, the subcutaneous tissue in the area of the incision was infiltrated with several cc of 0.25% Marcaine and epinephrine solution. The extremity was exsanguinated and tourniquet inflated to 250 mmHg remaining up for approximately five minutes. A longitudinal incision was over the ulnar aspect of the transverse carpal ligament. Subcutaneous tissue was bluntly dissected down to the ligament, which was identified and then transected longitudinally in line with the incision releasing the contents of the carpal canal. The tourniquet was released. Hemostasis was carried out with bipolar electrocautery. The median nerve had appropriate blush with reperfusion. The wound was irrigated with sterile saline solution. Skin edges were reapproximated with four 0 nylon suture and a sterile dressing was applied. A well-padded volar wrist splint was fashioned with the wrist in a neutral position. Estimated Blood Loss 2 Tourniquet Time 5 Packing No Pathology None sent Complications No immediate complications Condition Stable Disposition PACU [facility] Billing Surgery - Charge Forward: Surgery Billing ([id number])
[2022-12-17] MEDS: fentaNYL CITRATE INJ (*CRX) 100 MCG/2 ML VIAL 25 MCG IV PUSH ×2 (10:21→10:24)
[2022-12-17 10:30] VITALS: BP 92/61; PULSE 71; RESP 16; O2SAT 100
[2022-12-17] MEDS: oxyCODONE HCL (*CRX) 5 MG TAB IR PO (10:36)
[2022-12-17 11:00] VITALS: BP 93/63; PULSE 53; RESP 16
--- NOTE | 2022-12-17 11:18 | SUR.PHASEII ---
IV removed, patient dressed. Vital signs stable. Patient waiting for ride home from hospital.
== END 2022-12-17 11:31 | disposition home or self-care (01) ==
PROVIDERS: PCP Family Medicine; Visit Provider Orthopaedic Surgery
PROC: (CPT 64721; principal; 2022-12-17 10:00)
DX: G56.02 Carpal tunnel syndrome, left upper limb (principal); E66.9 Obesity, unspecified; Z68.30 Body mass index [BMI] 30.0-30.9, adult
CPT/HCPCS: 64721; A9270; J0690; J1885; J2250; J2405; J2704; J3010; J7120

== ENCOUNTER 2023-01-14 00:20 | Day surgery (SDC) | payer OTHER, SELFPAY ==
[2023-01-07 14:36] VITALS: BMI 32.1
--- NOTE | 2023-01-07 14:50 | PC.NURSE ---
Report to the Outpatient Waiting Room, entrance under the green pavilion located off [facility], at time 1130__ on date _01/14/23 . Planned Procedure Time: _1330 . Time changes happen often and if your time is changed the preop area will call you the afternoon before. - You and your visitor will be asked to self-screen and do not enter if you have any COVID symptoms. - A mask is optional within the hospital at this time. Patients may have clear liquids (water, carbonated beverages, clear teas, apple juice) until 3 hours prior to surgery with a maximum of 20 ounces. - No food from midnight until time of surgery - Take the following medications with a SIP of water the morning of surgery: __NONE DO NOT STOP ANY OF YOUR OTHER PRESCRIPTION MEDICATIONS PRIOR TO SURGERY ?EXCEPT THE FOLLOWING Medications to discontinue per physician NONE Date to take last dose____N/A Please no make-up, nail divehi, hairspray, perfume, deodorant, or body powder the day of surgery. No jewelry (including any body piercings) or valuables the day of surgery, leave them at home. Please take a shower or bath the night before, or the morning of, surgery with an antibacterial soap. Wear comfortable, loose fitting clothing. Children are encouraged to wear pajamas. - Jewelry must be removed prior to entering the operating room. Rings and piercings that are not removed may be cut off. - The hospital will not accept responsibility for valuables. - Please leave all valuables, including medications, at home the day of surgery. If you are going home after surgery, a licensed local company truck driver must drive you home. - NO public transportation without another adult if you receive anesthesia. - We recommend that an adult stay with you for 24 hours following discharge. - We also recommend that you do not drive, make important decision, drink alcoholic beverages, or take any drugs that were not prescribed by your health care provider for at least 24 hours after your discharge time. Follow any additional instructions given to you from your surgeon. If you or anyone in your household have experienced Covid symptoms in the past week, please notify your surgeon or the nurse liaison at the phone number below for possible testing. Telephone instructions given to _DECEMBER and asked if any additional questions and then verbalized understanding. Patient advised to call surgeon office or pre surgery nurse liaison [phone] if any additional questions.
[2023-01-14] MEDS: ACETAMINOPHEN 500 MG TABLET 1000 MG PO (11:32)
[2023-01-14] MEDS: LACTATED RINGERS 1,000 ML 30 ML IV CONT (11:43)
[2023-01-14 11:45] VITALS: BP 108/74; PULSE 78; RESP 16; TEMP 36.6; O2SAT 98
[2023-01-14] MEDS: KETOROLAC 15 MG/ML VIAL (*BKC) IV PUSH (12:00)
--- NOTE | 2023-01-14 12:54 | WPDANESEPPF ---
Anes - Initial Pre Proc Eval Procedure: Operation Date: 01/14/23 13:30 Proposed Procedures p Right Carpal Tunnel Release - Renaldo Soliz MD Date/Time: 01/14/23 12:54 Surgeon: Renaldo Soliz MD Pre Op Diagnosis: right carpal tunnel syndrome Patient Data Age: 47 Gender: F Height: 1.63 m Weight: 85.95 kg Last Vital Signs Temp 36.6 C 01/14/23 11:45 Pulse 78 01/14/23 11:45 Resp 16 01/14/23 11:45 BP 108/74 01/14/23 11:45 Pulse Ox 98 01/14/23 11:45 O2 Del Method Room Air 01/14/23 11:45 Allergies Allergy/AdvReac Type Severity Reaction Status Date / Time Penicillins Allergy Unknown Unknown Verified 01/07/23 14:46 Home Medications Medication Instructions Recorded Confirmed Type No Home Medications 01/02/23 01/07/23 History Patient hx anesthesia problems: none Family hx anesthesia problems: none Results Review: All pre-operative results and documents have been reviewed as part of the pre-operative evaluation. [facility] Past Medical History Medical History Abnormal screening mammogram BMI 29.0-29.9,adult BMI 30.0-30.9,adult BMI 36.0-36.9,adult BMI over 35 Kidney stone Lung nodule seen on imaging study Overweight with body mass index (BMI) of 28 to 28.9 in adult Right carpal tunnel syndrome Surgical History Surgical History History of carpal tunnel surgery of left wrist open left carpal tunnel release December 17, 2022 History of laminectomy History of lobectomy of lung Family History Family History Father No problems noted. 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 Informed Consent: The patient's anesthetic plan and its attendant risks and benefits were discussed with the patient/family/POA. Questions were solicited and answers provided to the satisfaction of the patient/family/POA.
--- NOTE | 2023-01-14 13:00 | WPDHPUPDATE1 ---
History and Physical Update Update Date/Time: 01/14/23 13:00 History and Physical has been reviewed, including an updated exam of the patient. There are NO changes in the patient's condition. Risks, benefits, and alternatives have been discussed and questions answered. Patient agrees to proceed with procedure.
[2023-01-14] MEDS: ceFAZolin 2 GM/D5W 50 ML 2 GM/50 ML BAG IVPB (13:36)
[2023-01-14] MEDS: BUPIVACAINE/EPINEPHRINE 0.25% 50 ML VIAL 10 ML INFILTRATE (13:58)
[2023-01-14 14:13] VITALS: BP 98/55; PULSE 76; RESP 12; O2SAT 100
--- NOTE | 2023-01-14 14:14 | W.PM.PROC2 ---
Procedure Note - Detailed Date of Procedure 01/14/23 Pre-op Diagnosis right carpal tunnel syndrome Post-op Diagnosis Same Procedure Performed Right carpal tunnel release Surgeon Renaldo Soliz MD [employer] And Setter Nicci Kumar Anesthesia MAC and Local Description of Procedure The patient was identified and proper side identified. After being taken to the operating room and transferred to the OR table, a nonsterile tourniquet was placed high on the right upper extremity, which was prepped and draped in the usual sterile fashion. After IV sedation was administered, the subcutaneous tissue in the area of the incision was infiltrated with several cc of 0.25% Marcaine and epinephrine solution. The extremity was exsanguinated and tourniquet inflated to 250 mmHg remaining up for approximately 4 minutes. A longitudinal incision was over the ulnar aspect of the transverse carpal ligament. Subcutaneous tissue was bluntly dissected down to the ligament, which was identified and then transected longitudinally in line with the incision releasing the contents of the carpal canal. The tourniquet was released. Hemostasis was carried out with bipolar electrocautery. The median nerve had appropriate blush with reperfusion. The wound was irrigated with sterile saline solution. Skin edges were reapproximated with four 0 nylon suture and a sterile dressing was applied. A well-padded volar wrist splint was fashioned with the wrist in a neutral position. Estimated Blood Loss 2 Tourniquet Time 4 Drains No Packing No Pathology None sent Complications No immediate complications Condition Stable Disposition PACU [facility] Billing Surgery - Charge Forward: Surgery Billing ([id number])
[2023-01-14 14:45] VITALS: BP 100/55; PULSE 61; RESP 14
[2023-01-14 15:15] VITALS: BP 99/55; PULSE 60; RESP 12
[2023-01-14 15:40] VITALS: BP 100/59; PULSE 59; RESP 14
--- NOTE | 2023-01-20 17:01 | P.PNAN_ITS ---
Anes - Initial Pre Proc Eval Procedure: Operation Date: 01/14/23 13:30 Proposed Procedures p Right Carpal Tunnel Release - Renaldo Soliz MD Date/Time: 01/20/23 17:01 Surgeon: Renaldo Soliz MD Pre Op Diagnosis: right carpal tunnel syndrome Patient Data Age: 47 Gender: F Height: 1.63 m Weight: 85.95 kg Last Vital Signs Temp 36.6 C 01/14/23 11:45 Pulse 59 L 01/14/23 15:40 Resp 14 01/14/23 15:40 BP 100/59 L 01/14/23 15:40 Pulse Ox 100 01/14/23 14:13 O2 Del Method Room Air 01/14/23 15:40 Allergies Allergy/AdvReac Type Severity Reaction Status Date / Time Penicillins Allergy Unknown Unknown Verified 01/07/23 14:46 Home Medications Medication Instructions Recorded Confirmed Type No Home Medications 01/02/23 01/07/23 History Patient hx anesthesia problems: none Family hx anesthesia problems: none Results Review: All pre-operative results and documents have been reviewed as part of the pre-operative evaluation. [facility] Past Medical History Medical History Abnormal screening mammogram BMI 29.0-29.9,adult BMI 30.0-30.9,adult BMI 36.0-36.9,adult BMI over 35 Kidney stone Lung nodule seen on imaging study Overweight with body mass index (BMI) of 28 to 28.9 in adult Right carpal tunnel syndrome Surgical History Surgical History History of carpal tunnel surgery of left wrist open left carpal tunnel release December 17, 2022 History of laminectomy History of lobectomy of lung Family History Family History Father No problems noted. 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 Informed Consent: The patient's anesthetic plan and its attendant risks and benefits were discussed with the patient/family/POA. Questions were solicited and answers provided to the satisfaction of the patient/family/POA.
== END 2023-01-14 15:41 | disposition home or self-care (01) ==
PROVIDERS: PCP Family Medicine; Visit Provider Orthopaedic Surgery
PROC: (CPT 64721; principal; 2023-01-14 13:30)
DX: G56.01 Carpal tunnel syndrome, right upper limb (principal); E66.9 Obesity, unspecified; Z68.32 Body mass index [BMI] 32.0-32.9, adult
CPT/HCPCS: 64721; A9270; J0690; J1885; J2250; J2405; J2704; J3010; J7120

== ENCOUNTER 2023-01-17 15:43 | Outpatient (CLI) | payer OTHER, SELFPAY ==
--- NOTE | ~2023-01-17 | MM_ITS ---
EXAMINATION: MM screening katheryn BI w katherine HISTORY: Screening mammogram TECHNIQUE: Craniocaudal and mediolateral oblique 3-D tomosynthesis images were obtained and synthetic 2-D images were generated. CAD analysis was submitted and interpreted. COMPARISON: 11/24/2021, 10/27/2021, 10/24/2016 BREAST PARENCHYMAL COMPOSITION: There are scattered areas of fibroglandular density. FINDINGS: RIGHT BREAST: No suspicious mass, calcification, or architectural distortion are identified to sugges t malignancy. There has been no suspicious interval change. LEFT BREAST: There is a mass in the far posterior third of the outer breast approximately 12 cm from the nipple at approximately 3:00. IMPRESSION: 1. Left breast mass. 2. Additional mammographic views and possible breast ultrasound are recommended. BI-RADS Category 0: Incomplete: Needs additional imaging evaluation. Reviewed, dictated and finalized at location A. IMPRESSION: 1. Left breast mass. 2. Additional mammographic views and possible breast ultrasound are recommended . BI-RADS Category 0: Incomplete: Needs additional imaging evaluation.
== END 2023-01-17 15:44 | disposition home or self-care (01) ==
LOC: ANHIMG 15:45
PROVIDERS: PCP Family Medicine; Visit Provider Family Medicine
DX: Z12.31 Encounter for screening mammogram for malignant neoplasm of breast (principal); N63.21 Unspecified lump in the left breast, upper outer quadrant
CPT/HCPCS: 77063; 77067

== ENCOUNTER 2023-01-20 15:51 | Day surgery (SDC) | payer OTHER, SELFPAY ==
[2023-01-20 15:57] VITALS: BP 116/76; PULSE 95; RESP 16; TEMP 36.4; O2SAT 97
[2023-01-20 16:13] LABS: Basophils Absolute Auto 0.1 K/mm3 (0.0-0.1); Basophils Percent Auto 1.3 % (0.2-1.2); Eosinophils Absolute Auto 0.2 K/mm3 (0-0.3); Eosinophils Percent Auto 3.4 % (0-4.4); Hematocrit 42.4 % (37.0-47.0); Hemoglobin 14.1 g/dL (12.0-15.0); Immature Granulocyte Absolute 0.02 K/mm3 (0.00-0.031); Immature Granulocyte Percent A 0.3 % (0-0.5); Lymphocytes Absolute Auto 2.48 K/mm3 (0.9-3.2); Lymphocytes Percent Auto 35.1 % (18.3-44.2); Mean Corpuscular HGB Conc 33.3 g/dl (32-36); Mean Corpuscular Hemoglobin 29.1 pg (26-34); Mean Corpuscular Volume 87.4 fl (80-100); Mean Platelet Volume 9.4 fl (7.4-10.4); Monocytes Absolute Auto 0.5 K/mm3 (0.1-0.6); Monocytes Percent Auto 7.6 % (2.6-8.5); Neutrophils Absolute Auto 3.7 K/mm3 (1.3-6.7); Neutrophils Percent Auto 52.3 % (45.5-73.1); Platelet Count Result 278 k/mm3 (150-375); Red Blood Count 4.85 M/mm3 (4.2-5.4); Red Cell Distribution Width 12.5 % (11.5-14.5); White Blood Count 7.1 K/mm3 (4.5-10.0)
--- NOTE | 2023-01-20 16:19 | ED.GENADULT ---
HPI - General Adult General Chief complaint: Extremity Injury, Upper Stated complaint: R WRIST POST OP COMPLICATION Time Seen by Provider: 01/20/23 15:55 History of Present Illness HPI narrative: 47-year-old female presented to the emergency department for evaluation of a repeat injury of her recent carpal tunnel sutures. Patient had carpal tunnel surgery on her right wrist by Dr. Soliz on 01/14. Patient states she was working in the yard today when she was on the riding lawnmower hit a bump and struck her right wrist on the lawnmower. Patient states she had intense worsening of pain in the right wrist and had bleeding from the sutures. Patient states since the injury she has decreased sensation over the fingers of the right hand and does have increased pain. Bandage was applied at home and upon arrival to the ED patient has no active bleeding. Patient has strong cap refill of the affected fingers and does have intact sensation to light touch. Patient states that she feels her sensation on fingers and hand is decreased since the incident. Patient did call Dr. Soliz. Dr. Soliz did call the ER and notified us that the patient would be arriving. When the patient arrived to the ED Dr. Soliz was notified and he will see the patient in the ER for anticipated surgical repair. Related Data Allergies Allergy/AdvReac Type Severity Reaction Status Date / Time Penicillins Allergy Unknown Unknown Verified 01/07/23 14:46 Review of Systems Review of Systems: All systems reviewed & are unremarkable except as noted in HPI and below [facility] Past Medical History Medical History (Updated 01/20/23 @ 18:30 by Otf Timmons MD) Abnormal screening mammogram BMI 29.0-29.9,adult BMI 30.0-30.9,adult BMI 36.0-36.9,adult BMI over 35 Kidney stone Lung nodule seen on imaging study Overweight with body mass index (BMI) of 28 to 28.9 in adult Right carpal tunnel syndrome Surgical History Surgical History (Updated 01/20/23 @ 17:12 by Renaldo Soliz MD) History of carpal tunnel surgery of left wrist open left carpal tunnel release December 17, 2022 History of laminectomy History of lobectomy of lung Wound dehiscence Right carpal tunnel incision Family History Family History Father No problems noted. 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 HEAD: normocephalic, atraumatic. EYES: PERRLA/EOMI, conjunctivae clear. NOSE: Normal no drainage NECK: Supple. No adenopathy, no masses. RESPIRATORY: Airway patent, respirations nonlabored. Clear to auscultation bilaterally, no rales, rhonchi, wheezing. CARDIOVASCULAR: Regular rate and rhythm without murmurs rubs or gallops. ABDOMINAL: Soft, nontender, nondistended, normal bowel sounds MUSCULOSKELETAL: Moves all extremities. Some swelling over the right carpal tunnel. No active bleeding. Right hand is intact to light touch and normal cap refill NEURO: Alert. Cranial nerves II through XII intact. Grossly intact SKIN: Warm, dry. Normal Color Course Course Emergency Course: 47-year-old female presented the ED for evaluation of reinjury of her surgical incision. Orthopedics is planning on taking the patient back to the OR. Baseline labs were rechecked. Dressing was placed on wound upon
[2023-01-20 16:23] LABS: Alanine Aminotransferase 25 U/L (6-35); Alkaline Phosphatase 80 U/L (38-126); Anion Gap 11 mmol/L (8-16); Aspartate Amino Transferase 31 U/L (14-36); Bilirubin,Total 0.6 mg/dL (0.2-1.3); Blood Urea Nitrogen 25 mg/dL (7-17); Calcium 9.6 mg/dL (8.4-10.2); Carbon Dioxide 25 mmol/L (22-30); Chloride 101 mmol/L (98-107); Estimated Glomerular Filt Rate > 60; Glucose 87 mg/dL (65-110); Potassium 4.3 mmol/L (3.4-5.0); Sodium 137 mmol/L (137-145)
[2023-01-20] MEDS: LACTATED RINGERS 1,000 ML 30 ML IV CONT (16:40)
[2023-01-20] MEDS: ceFAZolin 2 GM/D5W 50 ML 2 GM/50 ML BAG IVPB (17:08)
--- NOTE | 2023-01-20 17:08 | PM.IMHP ---
H&P: HPI History of Present Illness Date/Time: 01/20/23 17:08 Chief Complaint: Injury to right carpal tunnel incision Narrative: 47-year-old female who is postop day six open carpal tunnel release right wrist. Was working in her yard today when she hit her hand on the steering wheel breaking her incision open. Review of Systems Constitutional: Constitutional: Reports no additional constitutional complaints, Denies excessive sweating and Denies fatigue Eyes: Eyes: Reports no additional eye complaints ENT: Reports system reviewed and no additional complaints, except as documented Cardiovascular: Cardiovascular: Denies chest pain at rest and Denies dyspnea Respiratory: Respiratory: Reports no additional respiratory complaints and Denies dyspnea Gastrointestinal: Gastrointestinal: Reports no additional gastrointestinal complaints Musculoskeletal: Musculoskeletal: Reports as per HPI Integumentary/Breasts: Skin/Breast: Reports system reviewed and no additional complaints, except as docu Neurologic: Reports as per HPI Endocrine: Endocrine: Denies excessive sweating and Denies fatigue Hematologic/Lymphatic: Hematologic/Lymphatic: Denies easy bleeding and Denies easy bruising PMFSH Past Medical History Medical History Abnormal screening mammogram BMI 29.0-29.9,adult BMI 30.0-30.9,adult BMI 36.0-36.9,adult BMI over 35 Kidney stone Lung nodule seen on imaging study Overweight with body mass index (BMI) of 28 to 28.9 in adult Right carpal tunnel syndrome Surgical History Surgical History (Updated 01/20/23 @ 17:12 by Renaldo Soliz MD) History of carpal tunnel surgery of left wrist open left carpal tunnel release December 17, 2022 History of laminectomy History of lobectomy of lung Wound dehiscence Right carpal tunnel incision Family History Family History Father No problems noted. 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 - [employer] Gender identity (if verbalized by the patient): Female Spiritual care concerns: No Meds Home Medications and Allergies Home Medications Medication Instructions Recorded Confirmed Type No Home Medications 01/02/23 01/07/23 History Allergies Allergy/AdvReac Type Severity Reaction Status Date / Time Penicillins Allergy Unknown Unknown Verified 01/07/23 14:46 Vital Signs Vital Signs - 24 hr 01/20/23 15:57 Temperature 97.5 F L Pulse Rate 95 Respiratory Rate 16 Blood Pressure 116/76 Pulse Oximetry 97 Oxygen Delivery Room Air Exam Const: General: cooperative Orientation/consciousness: oriented to person, oriented to place and oriented to time HENMT: Head: normal to inspection Chest: Chest palpation & inspection: normal inspection of the chest and No Pacemaker present Resp: Effort & Inspection: normal respiratory effort and able to speak in complete sentences Auscultation: clear to auscultation bilaterally Cardio: Rate: regular rate Rhythm: regular rhythm Heart sounds: no murmurs Peripheral pulses: Peripheral pulses 2+ throughout GI: Inspection: normal to inspection GI Palp: No Tenderness to palpation present (GI) Auscultation: normal bowel sounds : General: Yes deferred Neuro: General: oriented to person, oriented to place and oriented to time Cranial nerves: Yes Normal hearing present Extrem: Other: Although the sutures are in place
[2023-01-20] MEDS: BUPivacaine HCL 0.5% 10 ML AMP 6 ML INFILTRATE (17:37)
[2023-01-20 17:40] VITALS: BP 96/78; PULSE 89; RESP 20; O2SAT 96
--- NOTE | 2023-01-20 17:46 | W.PM.PROC2 ---
Procedure Note - Detailed Date of Procedure 01/20/23 Pre-op Diagnosis traumatic dehiscence right carpal tunnel wound Post-op Diagnosis Same Procedure Performed washout and closure right carpal tunnel incision Surgeon Renaldo Soliz MD Grievance Manager Curly Kwan Anesthesia MAC and Local Description of Procedure The patient was identified and proper site identified. She was taken to the operating room and transferred to the or table placing her supine taking care to pad her torso and extremities. Nonsterile tourniquet was placed high in the right arm but was not used. Right upper extremity was prepped and draped the usual sterile fashion. Patient was administered IV sedation. Sutures removed from the wound which was then spread open quite easily. Several cc of 0.5% plain Marcaine was infiltrated into the subcutaneous tissue through the wound. The wound was then gently agitated. It was irrigated with about 0.5 liter of dilute Betadine and saline solution. The skin edge was freshened up and then the wound irrigated with another half a liter of sterile saline. Skin edges were reapproximated with 3-0 nylon interrupted sutures. Sterile dressings applied. A well-padded volar wrist splint was fashioned. She tolerated the procedure well. She was transferred back to [facility] taken to recovery in stable condition. There were no known intraoperative complications. Estimated blood loss was negligible. She received perioperative antibiotics. Estimated Blood Loss -2.0 Tourniquet Time 0 Drains No Packing No Pathology None sent Complications No immediate complications Condition Stable Disposition PACU [facility] Billing Surgery - Charge Forward: Surgery Billing ([id number])
[2023-01-20] MEDS: oxyCODONE HCL (*CRX) 5 MG TAB IR PO (18:13)
[2023-01-20 18:14] VITALS: BP 105/73; PULSE 60; RESP 20; O2SAT 100
[2023-01-20 18:40] VITALS: BP 102/70; PULSE 63; RESP 20
--- NOTE | 2023-01-20 18:52 | SUR.PHASEII ---
1845-READY FOR DISCHARGE, AWAITING RIDE.
== END 2023-01-20 19:13 | disposition home or self-care (01) ==
LOC: ANHED 16:20 → ANHSURGERY 16:31
PROVIDERS: Emergency Provider Emergency Medicine; PCP Family Medicine; Visit Provider Orthopaedic Surgery
PROC: (CPT 12020; principal; 2023-01-20 17:00)
DX: T81.31XA Disruption of external operation (surgical) wound, not elsewhere classified, initial encounter (principal); Y83.8 Other surgical procedures as the cause of abnormal reaction of the patient, or of later complication, without mention of misadventure at the time of the procedure
CPT/HCPCS: 12020; 36415; 80053; 85025; A9270; J0690; J1100; J2250; J2405; J2704; J3010; J7120

== ENCOUNTER 2023-03-08 16:53 | Emergency (ER) | payer OTHER, SELFPAY ==
--- NOTE | ~2023-03-08 | XR_ITS ---
EXAMINATION: XR hand RT min 3V DATE: 03/08/2023 17:08 INDICATION: Crush injury to the right hand. TECHNIQUE: Posteroanterior, oblique and lateral views of the right hand were obtained. COMPARISON: 11/15/2022 FINDINGS: Alignment is normal. No fracture. Joint spaces are normal. Soft tissues are unremarkable. IMPRESSION: 1. Negative right hand radiographs. Reviewed, dictated and finalized at location A.
[2023-03-08 16:56] VITALS: BP 121/72; PULSE 94; RESP 18; TEMP 37.1; O2SAT 99
--- NOTE | 2023-03-08 17:19 | ED.GENADULT ---
HPI - General Adult General Chief complaint: Extremity Injury, Upper Stated complaint: hand injury Time Seen by Provider: 03/08/23 17:04 Source: patient Mode of arrival: ambulatory Limitations: no limitations History of Present Illness HPI narrative: This is a 47-year-old female who presents to the ED with chief complaint of a right hand injury occurring just prior to arrival. Patient states that she was using a dog grooming table when the dog jumped off. States the table fell over and she did try to help the dog. When she was trying to cook pickled meat the 1000 pound metal grooming table, her card checker slipped and landed on the dorsum of her right hand. Denies any known or audible pop. Denies any further site of pain or injury. She has history of carpal tunnel in that hand and presents in a right wrist brace. Related Data Home Medications Medication Instructions Recorded Confirmed No Home Medications 02/05/23 02/05/23 Allergies Allergy/AdvReac Type Severity Reaction Status Date / Time Penicillins Allergy Unknown Unknown Verified 03/08/23 17:22 [facility] Past Medical History Medical History (Updated 03/08/23 @ 18:19 by Mendez Rivera PA-C) Abnormal screening mammogram BMI 29.0-29.9,adult BMI 30.0-30.9,adult BMI 36.0-36.9,adult BMI over 35 Kidney stone Lung nodule seen on imaging study Overweight with body mass index (BMI) of 28 to 28.9 in adult Right carpal tunnel syndrome Surgical History Surgical History (Updated 02/05/23 @ 15:39 by Renaldo Soliz MD) History of carpal tunnel surgery of left wrist open left carpal tunnel release December 17, 2022 History of carpal tunnel surgery of right wrist open carpal tunnel release January 14, 2023 History of laminectomy History of lobectomy of lung Wound dehiscence Right carpal tunnel incision Family History Family History Father No problems noted. 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 HEAD: Normocephalic, atraumatic. EYES: PERRLA and EOMI. ENT: Nares clear, no rhinorrhea or epistaxis. Mucous membranes moist. Oropharynx without tonsillar hypertrophy exudate or other lesions. NECK: Supple. No adenopathy or masses. CHEST: No respiratory distress. Clear to auscultation. No wheezes rales or rhonchi HEART: Regular rate and rhythm. No murmur heard. Normal peripheral pulses. ABDOMEN: Soft, nontender, nondistended, normal active bowel sounds. MSK: RUE: No deformity or bruising noted. There is tenderness to the fourth and fifth metacarpal and MCP. There is also tenderness approximately in that area in the wrist. Negative anatomical snuffbox tenderness. Neurovascularly intact distally. No swelling. Full active range of motion with pain LUE: Benign. MSK exam is otherwise benign. Ambulatory normal range of motion. No edema. SKIN: Warm, dry, no rash. NEURO: Alert and oriented x3. No focal deficits. PSYCH: Normal mood and affect. Course Vital Signs Vital signs: Vital Signs Temperature 98.7 F 03/08/23 16:56 Pulse Rate 94 03/08/23 16:56 Respiratory Rate 18 03/08/23 16:56 Blood Pressure 121/72 03/08/23 16:56 Pulse Oximetry 99 03/08/23 16:56 Oxygen Delivery Room Air 03/08/23 16:56 Temperature 98.7 F 03/08/23 16:56
== END 2023-03-08 18:27 | disposition home or self-care (01) ==
PROVIDERS: Emergency Provider Physician Assistant; PCP Family Medicine
DX: S69.91XA Unspecified injury of right wrist, hand and finger(s), initial encounter (principal); W22.8XXA Striking against or struck by other objects, initial encounter
CPT/HCPCS: 73130; 99283

== ENCOUNTER 2023-04-22 11:57 | Outpatient (CLI) | payer OTHER, SELFPAY ==
--- NOTE | ~2023-04-22 | MMUS_ITS ---
EXAMINATION: MM diagnostic katheryn LT w katherine, US breast LT limited HISTORY: Follow-up left breast mass TECHNIQUE: Additional 3-D tomosynthesis images of the left breast were performed and synthetic 2-D im ages were generated. CAD analysis was submitted and interpreted. High resolution Limited left breast ultrasound was performed. COMPARISON: 01/17/2023 BREAST PARENCHYMAL COMPOSITION: BREAST PARENCHYMAL COMPOSITION: There are scattered areas of fibroglandular density. FINDINGS: MAMMOGRAPHIC FINDINGS: There is a persistent mass posteriorly in the upper outer quadrant with central lucency. There are no suspicious calcifications or architectural distortion. ULTRASOUND: Limited left breast ultrasound: Normal heterogeneous echotexture without focal solid or cystic mass. IMPRESSION: 1. Probable benign mass upper outer quadrant of the left breast posteriorly, most likely intramammary lymph node. No sonographic correlate. 2. Recommend 6 month follow-up diagnostic left mammogram BI-RADS category 3, probably benign findings. Reviewed, dictated and finalized at location A. IMPRESSION: 1. Probable benign mass upper outer quadrant of the left breast posteriorly, mo st likely intramammary lymph node. No sonographic correlate. 2. Recommend 6 month follow-up diagnostic left mammogram BI-RADS category 3, probably benign findings.
== END 2023-04-22 11:58 | disposition home or self-care (01) ==
LOC: ANHIMG 11:58
PROVIDERS: PCP Family Medicine; Visit Provider Physician Assistant Medical
DX: N63.20 Unspecified lump in the left breast, unspecified quadrant (principal); R92.8 Other abnormal and inconclusive findings on diagnostic imaging of breast
CPT/HCPCS: 76642; 77061; 77065; G0279

== ENCOUNTER 2023-08-11 16:17 | Observation (INO) | payer OTHER, SELFPAY ==
--- NOTE | ~2023-08-11 | XR_ITS ---
EXAMINATION: XR retrograde pyelo w/stent RT DATE: 08/12/2023 15:42 INDICATION: Internal ureteral stent placement TECHNIQUE: Fluoroscopic images from a right internal ureteral stent placement are submitted for cristiana damico 32 seconds of fluoroscopy time. FINDINGS: There is a right double-J internal ureteral stent projecting in expected position, with proximal [place] loop at the level of the renal pelvis and distal loop in the pelvis within the bladder lumen. IMPRESSION: 1. Right internal ureteral stent placement. Please refer to real-time procedural findings for dale ls. Reviewed, dictated and finalized at location B. ENFORCEMENT DIRECTOR IMPRESSION: 1. Right internal ureteral stent placement. Please refer to real-time procedu ral findings for details.
--- NOTE | ~2023-08-11 | CT_ITS ---
EXAMINATION: CT abdomen pelvis wo con DATE: 08/11/2023 20:18 INDICATION: Right flank pain TECHNIQUE: Computed tomography (CT) of the abdomen and pelvis was performed without intravenous contr ast. The dose-length product was 1008.77 mGy-cm. Automated exposure control and iterative reconstruct ion technique were employed. COMPARISON: 07/02/2021 FINDINGS: Lung bases are unremarkable. Heart size normal. The liver, spleen, pancreas, adrenal glands and left kidney are unremarkable. There are multiple nonobstructing right renal stones. There is a 4 mm distal right ureteral stone with mild right hydronephrosis and perinephric edema. There are galls tones. Nonobstructive bowel gas pattern. Moderate lumbar spondylosis. IMPRESSION: 1. Distal right ureteral stone measuring 4 mm with mild hydroureteronephrosis and perinephric edema. 2: Nonobstructing right nephrolithiasis. 3: Cholelithiasis. Reviewed, dictated and finalized at location A. WARE SYSTEMS ENGINEER IMPRESSION: 1. Distal right ureteral stone measuring 4 mm with mild hydroureteronephrosis a nd perinephric edema. 2: Nonobstructing right nephrolithiasis. 3: Cholelithiasis.
[2023-08-11 16:22] VITALS: BP 114/85; PULSE 90; RESP 18; TEMP 36.3; O2SAT 100
--- NOTE | 2023-08-11 18:13 | ED.FEMALEGU ---
HPI - Female Genitourinary General Chief complaint: Urogenital-Female Stated complaint: kidney stone/nausea Time Seen by Provider: 08/11/23 18:09 Source: patient Mode of arrival: ambulatory Limitations: no limitations History of Present Illness HPI Narrative: This is a 47-year-old female who presents to the ED with chief complaint of right flank pain beginning around 10:00 a.m. this morning. States she has had multiple kidney stones in the past this feels similar today. Reports the pain radiates somewhat anteriorly. Denies any further sites of pain. She reports multiple episodes of vomiting and nausea currently. Denies fevers, chills. Related Data Allergies Allergy/AdvReac Type Severity Reaction Status Date / Time Penicillins Allergy Unknown Unknown Verified 08/12/23 00:30 Review of Systems Review of Systems: All systems as dictated in [facility] Past Medical History Medical History Abnormal screening mammogram BMI 29.0-29.9,adult BMI 30.0-30.9,adult BMI 36.0-36.9,adult BMI over 35 Kidney stone Lung nodule seen on imaging study Overweight with body mass index (BMI) of 28 to 28.9 in adult Right carpal tunnel syndrome Surgical History Surgical History History of carpal tunnel surgery of left wrist open left carpal tunnel release December 17, 2022 History of carpal tunnel surgery of right wrist open carpal tunnel release January 14, 2023 History of laminectomy History of lobectomy of lung Wound dehiscence Right carpal tunnel incision Family History Family History Father No problems noted. Mother Dementia Sibling Diabetes mellitus Morbid obesity Other Carcinoma of colon Family history of malignant neoplasm of breast Social History Social History Smoking status: Never smoker Second hand tobacco smoke exposure: Yes Alcohol intake: never Substance use: never Substance use type: does not use Lack of Transportation: No Lack of Food: Never True Current Housing: I Have Housing Concerned About Future Housing: No Difficulty Paying Gas/Electric Bills: No Difficulty Paying for Meds: No Currently Unemployed: No Education: Bachelor's Degree Difficulty w/ Childcare or Family Care: No Living arrangements: alone Occupation/Education: occupation 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 Finn (Urology), recommends admitting to Medicine and continuing antibiotics. He will see her tomorrow. Vital Signs Vital signs: Vital Signs Temperature 97.4 F L 08/11/23 16:22 Pulse Rate 90 08/11/23 16:22 Respiratory Rate 18 08/11/23 16:22 Blood Pressure 114/85 08/11/23 16:22 Pulse Oximetry 100 08/11/23 16:22 Oxygen Delivery Room Air 08/11/23 16:22 Temperature 97.5 F L 08/12/23 00:00 Pulse Rate 80 08/12/23 00:00 Respiratory Rate 16 08/12/23 00:00 Blood Pressure 105/58 L 08/12/23 00:00 Pulse Oximetry 97 08/12/23 00:00 Oxygen Delivery Room Air 08/11/23 16:22 MDM - Female Genitourinary MDM Narrative Medical decision making narrative: This is a 47-year-old female who presents to the ED with chief complaint of right flank pain. She is presenting and renal colic. Vitals are normal. Afebrile. Exam remarkable for the above. Lab work shows a mildly elevated leukocytosis at 11.6 and a normal CMP. Urinalysis shows 1+ protein, trace ketones, 3+ blood, trace leuks and 6-10 whites. No bacteria seen. CT abdomen and pelvis without contrast shows right distal 4 mm stone at the UVJ. Perinephric edema seen. Difficulty controlling patient's
[2023-08-11 18:23] LABS: Basophils Absolute Auto 0.1 K/mm3 (0.0-0.1); Basophils Percent Auto 0.7 % (0.2-1.2); Hematocrit 44.3 % (37.0-47.0); Hemoglobin 14.2 g/dL (12.0-15.0); Immature Granulocyte Absolute 0.03 K/mm3 (0.00-0.031); Immature Granulocyte Percent A 0.3 % (0-0.5); Lymphocytes Absolute Auto 1.17 K/mm3 (0.9-3.2); Lymphocytes Percent Auto 10.1 % (18.3-44.2); Mean Corpuscular HGB Conc 32.1 g/dl (32-36); Mean Corpuscular Hemoglobin 28.3 pg (26-34); Mean Corpuscular Volume 88.4 fl (80-100); Mean Platelet Volume 9.7 fl (7.4-10.4); Monocytes Absolute Auto 0.3 K/mm3 (0.1-0.6); Monocytes Percent Auto 2.2 % (2.6-8.5); Neutrophils Absolute Auto 10.1 K/mm3 (1.3-6.7); Neutrophils Percent Auto 86.7 % (45.5-73.1); Platelet Count Result 288 k/mm3 (150-375); Red Blood Count 5.01 M/mm3 (4.2-5.4); White Blood Count 11.6 K/mm3 (4.5-10.0)
[2023-08-11 18:39] LABS: Alanine Aminotransferase 24 U/L (6-35); Albumin Level 4.8 g/dL (3.5-5.1); Alkaline Phosphatase 69 U/L (38-126); Anion Gap 13 mmol/L (8-16); Aspartate Amino Transferase 30 U/L (14-36); Bilirubin,Total 0.6 mg/dL (0.2-1.3); Blood Urea Nitrogen 12 mg/dL (7-17); Calcium 9.6 mg/dL (8.4-10.2); Carbon Dioxide 23 mmol/L (22-30); Chloride 104 mmol/L (98-107); Estimated CRCL calculation 95 ml/min; Estimated Glomerular Filt Rate > 60; Glucose 118 mg/dL (65-110); Potassium 4.6 mmol/L (3.4-5.0); Sodium 140 mmol/L (137-145)
[2023-08-11 19:24] LABS: Appearance Urine Turbid (Clear); Bacteria Urine None Seen /hpf; Bilirubin Urine Negative (Negative); Blood Urine 3+ (Negative); Color Urine Dark Yellow (Yellow); Glucose Urine UA Negative (Negative); Ketones Urine Trace mg/dL (Negative); Leukocyte Esterase Ur Trace LEU/UL (Negative); Nitrate Urine Negative (Negative); Non Pathogenic Casts 0-2; Protein Urine 1+ mg/dL (Negative); RBC Urine >100 /hpf (0-2); Specific Grav Ur 1.028 (1.001-1.035); Squamous Epithelial Cell Urine None seen /hpf (Few); pH Urine 5.5 (5.0-9.0)
[2023-08-11] MEDS: KETOROLAC 30 MG/ML VIAL (*BKC) IM (19:24)
[2023-08-11 19:33] LABS: Add Urine Microscopic? YES
[2023-08-11] MEDS: HYDROmorphone HCL INJ (*CRX) 1 MG/ML SYR IM (19:45)
[2023-08-11] MEDS: SODIUM CHLORIDE 0.9% IV 1,000 ML 999 ML IV CONT (20:33)
[2023-08-11] MEDS: ONDANSETRON INJ 4 MG/2 ML VIAL IV PUSH (20:33)
[2023-08-11 20:36] VITALS: BP 84/76; PULSE 100; O2SAT 100
[2023-08-11 21:04] VITALS: BP 106/79; PULSE 98; O2SAT 98
[2023-08-11] MEDS: HYDROmorphone HCL INJ (*CRX) 1 MG/ML SYR 0.5 MG IV PUSH (21:36)
[2023-08-11 22:35] VITALS: BP 111/75; PULSE 75; RESP 18; O2SAT 100
--- NOTE | 2023-08-11 23:43 | PC.NURSE ---
This RN was not notified of patient receiving a bed number.
[2023-08-12] VITALS (10 sets, daily range): BP systolic 95–121; BP diastolic 58–91; PULSE 65–87; RESP 12–20; TEMP 36.1–37.1; O2SAT 95–100; BMI 36.3
--- NOTE | 2023-08-12 00:07 | ADMGEN ---
This patient, [place]ham, was admitted to [facility] Surg Room 304-02. Patient/family oriented to hospital policies and general routines including ID bracelet, bed and alarms, visiting hours, pain management, procedures, bathroom and other care routines, personal items, smoking policy, room service/diet, and visiting hours. Information on how to activate the Rapid Response Team has been discussed. Patient/Family are encouraged to report perceived risks to care and to ask questions if they do not understand what they are told or what they should do.
[2023-08-12] MEDS: ONDANSETRON INJ 4 MG/2 ML VIAL IV PUSH ×4 (00:14→20:30)
[2023-08-12] MEDS: SODIUM CHLORIDE 0.9% IV 1,000 ML 125 ML IV CONT ×2 (00:30→18:29)
[2023-08-12] MEDS: HYDROmorphone HCL INJ (*CRX) 1 MG/ML SYR 0.5 MG IV PUSH ×5 (01:05→20:30)
--- NOTE | 2023-08-12 08:16 | WPDURCON ---
Assessment and Plan Assessment and plan (1) Calculus of distal right ureter: Code(s): N20.1 - Calculus of ureter Status: Acute (2) Hydronephrosis: Code(s): N13.30 - Unspecified hydronephrosis Status: Acute Plan We discussed a trial of conservative stone passage versus ureteroscopy with stone extraction. She would like the stone removed. We will plan on ureteroscopy this afternoon. I will attempt to remove the stone. She understands risks of bleeding, infection, damage to the urinary tract, inability remove the stone. I may or may not leave a stent depending on findings. Her urinalysis is abnormal but not really suggestive of infection. She has no significant symptomatology of infection either. Urology Consult Note HPI Date Seen: 08/12/23 Requesting Physician: Eve Sears DO Primary Care Provider: Primitivo Rehman MD Consult Narrative Narrative: Bianka Dai is a 47 year old female with a previous history of stone disease. She has had 2 stones spontaneously pass in the past. She has required a procedure on 1 occasion. She comes to the ER last night complaining of acute onset right flank pain radiating to right lower quadrant. She had nausea and vomiting. She had visible blood in the urine. She denied any fevers or chills. She denied dysuria. She was admitted for further management. Review of Systems Review of Systems: All systems reviewed & are unremarkable except as noted in HPI and below PMFSH Past Medical History Medical History Abnormal screening mammogram BMI 29.0-29.9,adult BMI 30.0-30.9,adult BMI 36.0-36.9,adult BMI over 35 Kidney stone Lung nodule seen on imaging study Overweight with body mass index (BMI) of 28 to 28.9 in adult Right carpal tunnel syndrome Surgical History Surgical History History of carpal tunnel surgery of left wrist open left carpal tunnel release December 17, 2022 History of carpal tunnel surgery of right wrist open carpal tunnel release January 14, 2023 History of laminectomy History of lobectomy of lung Wound dehiscence Right carpal tunnel incision Family History Family History Father No problems noted. Mother Dementia Sibling Diabetes mellitus Morbid obesity Other Carcinoma of colon Family history of malignant neoplasm of breast Social History Social History Smoking status: Never smoker Second hand tobacco smoke exposure: Yes Alcohol intake: never Substance use: never Substance use type: does not use Lack of Transportation: No Lack of Food: Never True Current Housing: I Have Housing Concerned About Future Housing: No Difficulty Paying Gas/Electric Bills: No Difficulty Paying for Meds: No Currently Unemployed: No Education: Bachelor's Degree Difficulty w/ Childcare or Family Care: No Living arrangements: alone Occupation/Education: occupation 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/education comments: 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 - [employer] Gender identity (if verbalized by the patient): Female Spiritual care concerns: No Meds Home Medications and Allergies Home Medications Medication Instructions Recorded Confirmed Type econazole 1 % topical cream 1 applic topical BID #30 grams 07/22/23 08/12/23 Rx Allergies Allergy/AdvReac Type Severity Reaction Status Date / Time Penicillins Allergy Unknown Unknown Verified 08/12/23 00:30 Vital Signs Vital Signs - 24 hr 08/11/23 16:22 08/11/23 20:36 08/11/23 21:04 Temperature 97.4 F L Pulse Rate 90 100 98 Respiratory Rate 18 Blood Pressure 114/85 84/76 L 106/79 Pulse Oximetry 100 100 98 Oxygen Delivery Room Air 08/11/23 22:35 08/12/23 00:00 08/12/23 05:55 Temperature 97.5 F L 96.9 F L P
[2023-08-12] MEDS: MICONAZOLE NITRATE 2% CREAM 30 GM TUBE 1 APPLIC TOPICAL ×2 (09:51→18:28)
--- NOTE | 2023-08-12 11:16 | PM.IMHP ---
H&P: HPI History of Present Illness Date/Time: 08/12/23 11:16 Chief Complaint: flank pain Narrative: Patient is a 47 YO female with PMH of kidney stones. She reports her pain started yesterday morning around 10:00 am which she originally thought was constipation. She is familiar with kidney stone pain from her history. As the day/evening progressed she thought the stone was moving down on its own, but now feels like it has moved up. She has had 2 stones pass in the past, one requiring a stent in 2014. Her last kidney stone was 2 years ago. She denies special diet, caffeine intake and tries to drink enough fluids. She has no changes in her home medications. She had nausea and vomiting prior to admission. She had visible blood in the urine. She denied any fevers or chills. She denied dysuria. Urology was consulted and she will have a procedure to remove the stone this afternoon. Will give PRN pain control, IVF and remain NPO. UA was positive for bacteria, started on Rocephin as UA culture is pending. [facility] Past Medical History Medical History Abnormal screening mammogram BMI 29.0-29.9,adult BMI 30.0-30.9,adult BMI 36.0-36.9,adult BMI over 35 Kidney stone Lung nodule seen on imaging study Overweight with body mass index (BMI) of 28 to 28.9 in adult Right carpal tunnel syndrome Surgical History Surgical History History of carpal tunnel surgery of left wrist open left carpal tunnel release December 17, 2022 History of carpal tunnel surgery of right wrist open carpal tunnel release January 14, 2023 History of laminectomy History of lobectomy of lung Wound dehiscence Right carpal tunnel incision Family History Family History Father No problems noted. Mother Dementia Sibling Diabetes mellitus Morbid obesity Other Carcinoma of colon Family history of malignant neoplasm of breast Social History Social History Smoking status: Never smoker Second hand tobacco smoke exposure: Yes Alcohol intake: never Substance use: never Substance use type: does not use Lack of Transportation: No Lack of Food: Never True Current Housing: I Have Housing Concerned About Future Housing: No Difficulty Paying Gas/Electric Bills: No Difficulty Paying for Meds: No Currently Unemployed: No Education: Bachelor's Degree Difficulty w/ Childcare or Family Care: No Living arrangements: alone Occupation/Education: occupation 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/education comments: 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 [employer] Gender identity (if verbalized by the patient): Female Spiritual care concerns: No Meds Home Medications and Allergies Home Medications Medication Instructions Recorded Confirmed Type econazole 1 % topical cream 1 applic topical BID #30 grams 07/22/23 08/12/23 Rx Allergies Allergy/AdvReac Type Severity Reaction Status Date / Time Penicillins Allergy Unknown Unknown Verified 08/12/23 00:30 Vital Signs Vital Signs - 24 hr 08/11/23 16:22 08/11/23 20:36 08/11/23 21:04 Temperature 97.4 F L Pulse Rate 90 100 98 Respiratory Rate 18 Blood Pressure 114/85 84/76 L 106/79 Pulse Oximetry 100 100 98 Oxygen Delivery Room Air 08/11/23 22:35 08/12/23 00:00 08/12/23 05:55 Temperature 97.5 F L 96.9 F L Pulse Rate 75 80 72 Respiratory Rate 18 16 20 Blood Pressure 111/75 105/58 L 95/63 L Pulse Oximetry 100 97 100 Oxygen Delivery 08/12/23 08:00 Temperature Pulse Rate Respiratory Rate Blood Pressure Pulse Oximetry Oxygen Delivery Room Air Exam Narrative: General: Awake, alert and oriented. No acute distress. Well developed and nourished. Skin: Skin in warm, dry and intact without rashes or lesions. Eyes: EOM are intact,
[2023-08-12] MEDS: fentaNYL CITRATE INJ (*CRX) 100 MCG/2 ML VIAL 25 MCG IV PUSH ×5 (14:23→16:23)
--- NOTE | 2023-08-12 14:23 | WPDANESEPPF ---
Anes - Initial Pre Proc Eval Procedure: Operation Date: 08/12/23 15:30 Proposed Procedures p Cystoscopy, Right Stone Extraction - Fadi Sargent MD Date/Time: 08/12/23 14:23 Surgeon: Eve Sears DO Pre Op Diagnosis: Right ureteral stone, UTI Patient Data Age: 47 Gender: F Height: 1.63 m Weight: 96.1 kg Last Vital Signs Temp 98.4 F 08/12/23 13:47 Pulse 66 08/12/23 13:47 Resp 18 08/12/23 13:47 BP 101/61 08/12/23 13:47 Pulse Ox 100 08/12/23 13:47 O2 Del Method Room Air 08/12/23 08:00 Allergies Allergy/AdvReac Type Severity Reaction Status Date / Time Penicillins Allergy Unknown Unknown Verified 08/12/23 00:30 Home Medications Medication Instructions Recorded Confirmed Type econazole 1 % topical cream 1 applic topical BID #30 grams 07/22/23 08/12/23 Rx Laboratory Tests 08/11/23 08/11/23 18:17 19:06 WBC 11.6 H K/mm3 (4.5-10.0) RBC 5.01 M/mm3 (4.2-5.4) Hgb 14.2 g/dL (12.0-15.0) Hct 44.3 % (37.0-47.0) MCV 88.4 fl (80-100) MCH 28.3 pg (26-34) MCHC 32.1 g/dl (32-36) RDW 13.0 % (11.5-14.5) Plt Count 288 k/mm3 (150-375) MPV 9.7 fl (7.4-10.4) Immature Gran % (Auto) 0.3 % (0-0.5) Neut % (Auto) 86.7 H % (45.5-73.1) Lymph % (Auto) 10.1 L % (18.3-44.2) [place] % (Auto) 2.2 L % (2.6-8.5) Eos % (Auto) 0.0 % (0-4.4) Baso % (Auto) 0.7 % (0.2-1.2) Lymph # (Auto) 1.17 K/mm3 (0.9-3.2) [place] # (Auto) 0.3 K/mm3 (0.1-0.6) Eos # (Auto) 0.0 K/mm3 (0-0.3) Baso # (Auto) 0.1 K/mm3 (0.0-0.1) Abs Immat Gran (auto) 0.03 K/mm3 (0.00-0.031) Absolute Neuts (auto) 10.1 H K/mm3 (1.3-6.7) Absolute Nucleated RBC 0.0 K/mm3 (0.0-0.012) Nucleated RBC % 0.0 % (0.0-0.2) Sodium 140 mmol/L (137-145) Potassium 4.6 mmol/L (3.4-5.0) Chloride 104 mmol/L (98-107) Carbon Dioxide 23 mmol/L (22-30) Anion Gap 13 mmol/L (8-16) BUN 12 D mg/dL (7-17) Creatinine 0.70 mg/dL (0.7-1.0) Estim Creat Clear Calc 95 ml/min Estimated GFR > 60 (59 - ) Glucose 118 H mg/dL (65-110) Calcium 9.6 mg/dL (8.4-10.2) Total Bilirubin 0.6 mg/dL (0.2-1.3) AST 30 U/L (14-36) ALT 24 U/L (6-35) Alkaline Phosphatase 69 U/L (38-126) Total Protein 9.0 H g/dL (6.3-8.2) Albumin 4.8 g/dL (3.5-5.1) Urine Color Dark yellow (Yellow) Urine Appearance Turbid H (Clear) Urine pH 5.5 (5.0-9.0) Ur Specific [place] 1.028 (1.001-1.035) Urine Protein 1+ H mg/dL (Negative) Urine Glucose (UA) Negative mg/dL (Negative) Urine Ketones Trace H mg/dL (Negative) Ur Blood (Man) 3+ H (Negative) Urine Nitrate Negative (Negative) Urine Bilirubin Negative (Negative) Urine Urobilinogen 1.0 mg/dL (<2.0) Leukocyte Esterase Rfl Trace H COOKIE/UL (Negative) Urine RBC >100 H /hpf (0-2) Urine WBC 6-10 H /hpf Ur Squamous Epith Cells None seen /hpf (Few) Urine Bacteria None seen /hpf Urine Casts 0-2 Patient hx anesthesia problems: none Family hx anesthesia problems: none Results Review: All pre-operative results and documents have been reviewed as part of the pre-operative evaluation. [facility] Past Medical History Medical History Abnormal screening mammogram BMI 29.0-29.9,adult BMI 30.0-30.9,adult BMI 36.0-36.9,adult BMI over 35 Kidney stone Lung nodule seen on imaging study Overweight with body mass index (BMI) of 28 to 28.9 in adult Right carpal tunnel syndrome Surgical History Surgical History History of carpal tunnel surgery of left wrist
--- NOTE | 2023-08-12 14:42 | WPDHPUPDATE1 ---
History and Physical Update Update Date/Time: 08/12/23 14:42 History and Physical has been reviewed, including an updated exam of the patient. There are NO changes in the patient's condition. Risks, benefits, and alternatives have been discussed and questions answered. Patient agrees to proceed with procedure.
[2023-08-12] MEDS: LACTATED RINGERS 1,000 ML 30 ML IV CONT (15:24)
--- NOTE | 2023-08-12 15:24 | W.PM.PROC2 ---
Procedure Note - Detailed Date of Procedure 08/12/23 Pre-op Diagnosis Right ureteral stone Post-op Diagnosis Same Procedure Performed cystoscopy, right retrograde pyelogram, right ureteroscopy, holmium laser lithotripsy, basket stone extraction, stent placed Surgeon Fadi Sargent MD Anesthesia General Findings distal ureteral stone fragmented and extracted Description of Procedure she has correctly identified. Informed consent obtained. From the operating room. She was given general anesthesia. She was prepped and draped sterile fashion. She was already on appropriate perioperative antibiotics. A time-out performed. Examination of her bladder revealed no abnormalities or signs of infection. There is no purulence coming from the ureter. I did a gentle retrograde pyelogram on the right. She had hydronephrosis proximal to a filling defect. There is no extravasation. I placed a guidewire to the kidney. I dilated the ureteral orifice the 810 dilator. I performed rigid ureteroscopy. The stone was encountered. It was too large to be extracted intact. I used the holmium laser at a dusting settingTo completely fragment the stone. I then extracted all fragments of the basket. One fragment was sent for analysis. There is minimal trauma to the ureter. I did however like to leave ureteral stent. A 4.8 ureteral stent was chosen. Under fluoroscopy I placed a stent. Proximal coil in the renal pelvis. Distal coil in the bladder. The bladder was drained. She was awakened transferred to PACU in stable condition Estimated Blood Loss 1 Urine Output 200 Drains Yes ( ureteral stent) Complications No immediate complications Condition Stable Disposition PACU
[2023-08-12] MEDS: oxyBUTYnin CHLORIDE 5 MG TABLET PO (17:27)
[2023-08-13] MEDS: HYDROmorphone HCL INJ (*CRX) 1 MG/ML SYR 0.5 MG IV PUSH (00:12)
[2023-08-13] MEDS: HYDROcodone/acetaminophen (*CRX) 5-325 MG TABLET 1 TAB PO ×2 (04:36→09:17)
[2023-08-13 05:48] VITALS: BP 99/64; PULSE 61; RESP 20; TEMP 36.5; O2SAT 90
[2023-08-13 06:59] LABS: Hemoglobin 11.1 g/dL (12.0-15.0); Mean Corpuscular HGB Conc 32.6 g/dl (32-36); Mean Corpuscular Hemoglobin 28.5 pg (26-34); Mean Corpuscular Volume 87.2 fl (80-100); Platelet Count Result 221 k/mm3 (150-375); Red Cell Distribution Width 12.7 % (11.5-14.5); White Blood Count 7.5 K/mm3 (4.5-10.0)
--- NOTE | 2023-08-13 07:28 | WPDANESPN ---
Anes - Prog Note Post-Op Date/Time: 08/13/23 07:28 Cardiovascular status: normal Respiratory status: normal Airway patency: baseline Mental status: baseline Post-Op hydration status: normal Vital Signs: Last Vital Signs Temp 36.5 C 08/13/23 05:48 Pulse 61 08/13/23 05:48 Resp 20 08/13/23 05:48 BP 99/64 L 08/13/23 05:48 Pulse Ox 90 08/13/23 05:48 O2 Del Method Room Air 08/12/23 16:38 O2 Flow Rate 8 08/12/23 15:40 Pain Score (VAS): 2 I/O: Intake & Output 08/12/23 08/12/23 08/13/23 15:59 23:59 07:59 Intake Total 1000 100 700 Output Total 200 600 600 Balance 800 -500 100 Laboratory Tests 08/13/23 06:18 08/13/23 06:18 WBC 7.5 RBC 3.90 L Hgb 11.1 L D Hct 34.0 L MCV 87.2 MCH 28.5 MCHC 32.6 RDW 12.7 Plt Count 221 MPV 10.0 Sodium Pending Potassium Pending Chloride Pending Carbon Dioxide Pending Anion Gap Pending BUN Pending Creatinine Pending Estim Creat Clear Calc Pending Estimated GFR Pending Glucose Pending Calcium Pending Phosphorus Pending Albumin Pending Post-procedural complaints: none Patient Feedback: Patient satisfied with anesthetic care.
[2023-08-13 07:40] LABS: Albumin Level 3.3 g/dL (3.5-5.1); Anion Gap 5 mmol/L (8-16); Blood Urea Nitrogen 14 mg/dL (7-17); Calcium 8.5 mg/dL (8.4-10.2); Carbon Dioxide 25 mmol/L (22-30); Chloride 107 mmol/L (98-107); Estimated CRCL calculation 87 ml/min; Estimated Glomerular Filt Rate > 60; Glucose 126 mg/dL (65-110); Phosphorus 2.9 mg/dL (2.5-4.5); Potassium 3.6 mmol/L (3.4-5.0); Sodium 137 mmol/L (137-145)
--- NOTE | 2023-08-13 07:57 | PM.IMPN ---
Progress Note: A&P Assessment and Plan (1) Calculus of distal right ureter: Code(s): N20.1 - Calculus of ureter Status: Acute Assessment and Plan: labs WBC at 11.6 [address] a normal CMP. CT abdomen and pelvis: shows right distal 4 mm stone at the UVJ. Perinephric edema seen. urology consulted - removal scheduled for this afternoon IVF, NPO and pain control 08/13: S/P procedure with urology for laser of stone and placement of stent. Regular diet ordered for this morning. Stopping IVF and IV pain medications. Anticipate d/c home today. Urine culture pending and will be followed. Will need follow up with Urology in 1 week. (2) UTI (urinary tract infection): Code(s): N39.0 - Urinary tract infection, site not specified Status: Acute Assessment and Plan: UA: 1+ protein, trace ketones, 3+ blood, trace leuks and 6-10 WBC UA culture pending Rocephin started Subjective Date/time seen: 08/13/23 07:57 Interval history: HPI obtained from the chart, Patient is a 47 YO female with PMH of kidney stones. She reports her pain started yesterday morning around 10:00 am which she originally thought was constipation. She is familiar with kidney stone pain from her history. As the day/evening progressed she thought the stone was moving down on its own, but now feels like it has moved up. She has had 2 stones pass in the past, one requiring a stent in 2014. Her last kidney stone was 2 years ago. She denies special diet, caffeine intake and tries to drink enough fluids. She has no changes in her home medications. She had nausea and vomiting prior to admission. She had visible blood in the urine.? She denied any fevers or chills.? She denied dysuria. Urology was consulted and she will have a procedure to remove the stone this afternoon. Will give PRN pain control, IVF and remain NPO. UA was positive for bacteria, started on Rocephin as UA culture is pending. 08/13: Review of Systems Review of Systems: All systems reviewed & are unremarkable except as noted in HPI and below Exam Narrative: General: well appearing, well developed, well nourished, appears stated age. HEENT: normocephalic, atraumatic. Mucous membranes moist. EOMI, PERRLA, bilateral sclera anicteric, no conjunctival injection. Neck supple without JVD, lymphadenopathy, or bruit. Respiratory: clear to ascultation bilaterally. No rales/rhonic/wheezes. Cardiovascular: Regular rate and rhythm, normal S1-S2 upon ascultation. No murmurs, rubs, or clicks. PMI is nondisplaced, capillary re-fill less than 3 second. Abdomen: Soft, flat, no pulsatile masses, non-distended and non-tender. No rebound, no guarding. No CVA tenderness, no hepatosplenomegaly. Bowel sounds present to all four quadrants. No high pitch or tinkling sounds, resonant to percussion. Extremities: No cyanosis, clubbing, or edema present. Pulses are palpable 2/2. Active ROM to all four extremities. Neuro: Alert and orientated x 4. PERRLA. Cranial nerves 2-12 intact without focal deficit. Skin: Warm, dry, and intact, without rash, erythema, or lesion. Lines: Incisions: Psych: pleasant, cooperative, normal speech, normal affect, no hallucinations, no dysarthia Objective Data Vital Signs Vital Signs: Vital Signs - 24 hr 08/12/23 08:00 08/12/23 13:47 08/12/23 13:47 Temperature 98.4 F 97.9 F Pulse Rate 66 79 Respiratory Rate 18 18 Blood Pressure 101/61 121/91 H Pulse Oximetry 100 100 Oxygen Delivery Room Air Room Air Oxygen Flow Rate 08/12/23 15:24 08/12/23 15:40 08/12/23 15:55 Temperature 97.3 F L Pulse Rate 87 70 71 Respiratory Rate 12 12 14 Blood Pressure 105/59 L 106/66 106/75 Pulse Oximetry 100 97 100 Oxygen Delivery Simple Face Mask Simple Face Mask Room Air Oxygen Flow Rate 8 8 08/12/23 16:10 08/12/23 16:25 08/12/23 16:38 Temperature Pulse Rate 69 69 65 Respiratory Rate 12 12 12 Blood Pressure 105/67 105/68 105/71 Pulse Oximetry 97 9
[2023-08-13] MEDS: ONDANSETRON INJ 4 MG/2 ML VIAL IV PUSH (09:16)
[2023-08-13] MEDS: oxyBUTYnin CHLORIDE 5 MG TABLET PO (09:17)
--- NOTE | 2023-08-13 12:23 | PM.DS ---
DS: Admitting Diagnosis Discharge Date 08-13 Admitting Diagnosis Flank pain DS: Discharge Diagnosis Discharge Diagnosis (1) Calculus of distal right ureter: Code(s): N20.1 - Calculus of ureter Status: Acute Assessment and Plan: labs WBC at 11.6 and a normal CMP. CT abdomen and pelvis: shows right distal 4 mm stone at the UVJ. Perinephric edema seen. urology consulted - removal scheduled for this afternoon IVF, NPO and pain control 08/13: S/P procedure with urology for laser of stone and placement of stent. Regular diet ordered for this morning. Stopping IVF and IV pain medications. Anticipate d/c home today. Urine culture pending and will be followed. Will need follow up with Urology in 1 week. (2) UTI (urinary tract infection): Code(s): N39.0 - Urinary tract infection, site not specified Status: Acute Assessment and Plan: UA: 1+ protein, trace ketones, 3+ blood, trace leuks and 6-10 WBC UA culture pending Rocephin started DS: Summary Hospital Course Hospital Course: Patient is a 47 YO female with PMH of kidney stones. She reports her pain started yesterday morning around 10:00 am which she originally thought was constipation. She is familiar with kidney stone pain from her history. As the day/evening progressed she thought the stone was moving down on its own, but now feels like it has moved up. She has had 2 stones pass in the past, one requiring a stent in 2014. Her last kidney stone was 2 years ago. She denies special diet, caffeine intake and tries to drink enough fluids. She has no changes in her home medications. She had nausea and vomiting prior to admission. She had visible blood in the urine.? She denied any fevers or chills.? She denied dysuria. Urology was consulted and she will have a procedure to remove the stone this afternoon. Will give PRN pain control, IVF and remain NPO. UA was positive for bacteria, started on Rocephin as UA culture is pending. 08/13: Mrs. Dai is doing well today. She feels much better today as opposed to yesterday. She is tolerating a diet and her pain is controlled with her [place]. Labs have been reviewed vitals are stable. She can discharge home today Status at Discharge Cognitive/behavioral status at discharge: A&O x4, pleasant Time Spent with Patient Time attestation: Total time spent providing and/or coordinating discharge services: 35 Exam Narrative: General: well appearing, well developed, well nourished, appears stated age. HEENT: normocephalic, atraumatic. Mucous membranes moist. EOMI, PERRLA, bilateral sclera anicteric, no conjunctival injection. Neck supple without JVD, lymphadenopathy, or bruit. Respiratory: clear to auscultation bilaterally. No rales/rhonic/wheezes. Cardiovascular: Regular rate and rhythm, normal S1-S2 upon auscultation. No murmurs, rubs, or clicks. PMI is nondisplaced, capillary re-fill less than 3 second. Abdomen: Soft, flat, no pulsatile masses, non-distended and non-tender. No rebound, no guarding. No CVA tenderness, no hepatosplenomegaly. Bowel sounds present to all four quadrants. No high pitch or tinkling sounds, resonant to percussion. Extremities: No cyanosis, clubbing, or edema present. Pulses are palpable 2/2. Active ROM to all four extremities. Neuro: Alert and orientated x 4. PERRLA. Cranial nerves 2-12 intact without focal deficit. Skin: Warm, dry, and intact, without rash, erythema, or lesion. Lines: Incisions: Psych: pleasant, cooperative, normal speech, normal affect, no hallucinations, no dysarthria DS: Data Data Completed and Pending Pending studies at discharge: Pending at discharge 08/12/23 15:18 Surgical [PTH] Routine Labs on day of discharge: Labs from last 24 hours 08/13/23 06:18 WBC 7.5 RBC 3.90 L Hgb 11.1 L D Hct 34.0 L MCV 87.2 MCH 28.5 MCHC 32.6 RDW 12.7 Plt Count 221 MPV 10.0 Sodium 137 Potassium 3.6 Chloride 107 Carbon Dioxide
[2023-08-13 13:49] VITALS: BP 103/61; PULSE 55; RESP 16; TEMP 35.8; O2SAT 100
== END 2023-08-13 14:00 | disposition home or self-care (01) ==
LOC: ANHED 21:05 → ANH3MEDSUR 23:45
PROVIDERS: Nurse Practitioner; Urology; Admitting Provider Internal Medicine; Emergency Provider Physician Assistant; PCP Family Medicine; Visit Provider Student in an Organized Health Care Education/Training Program
PROC: (CPT 52352; principal; 2023-08-12 15:30)
DX: N13.2 Hydronephrosis with renal and ureteral calculous obstruction (principal); N39.0 Urinary tract infection, site not specified; K80.20 Calculus of gallbladder without cholecystitis without obstruction; E66.01 Morbid (severe) obesity due to excess calories; Z68.36 Body mass index [BMI] 36.0-36.9, adult; Z79.899 Other long term (current) drug therapy
CPT/HCPCS: 52356; 52352; 36415; 74176; 74420; 80053; 80069; 81001; 81025; 82365; 85025; 85027; 87086; 87088; 88300; 96365; 96372; 96375; 99285; A9270; C1769; C2617; G0378; G0379; J0696; J1100; J1170; J1885; J2405; J2704; J3010; J7030; J7120; Q9966

== ENCOUNTER 2023-08-25 19:13 | Emergency (ER) | payer OTHER, SELFPAY ==
[2023-08-25 19:25] VITALS: BP 123/64; PULSE 91; RESP 18; TEMP 37.2; O2SAT 100
--- NOTE | 2023-08-25 19:50 | ED.FEMALEGU ---
HPI - Female Genitourinary General Chief complaint: Urogenital-Female Stated complaint: possible kidney infection Time Seen by Provider: 08/25/23 19:36 History of Present Illness HPI Narrative: Patient is a 47-year-old female presenting with dysuria. Patient states that she had a ureteral stent placed a couple of weeks ago. She is scheduled to have it removed on Saturday. States that she has been recovering well until the last couple of days when she has been having dysuria. States that she has also had some intermittent bilateral flank pain. She is concerned about a UTI. Denies any abdominal pain, n/v/d. she states that her temperature was up to 100.3 earlier today. No further complaints. Related Data Allergies Allergy/AdvReac Type Severity Reaction Status Date / Time Penicillins Allergy Unknown Unknown Verified 09/05/23 10:14 Review of Systems Review of Systems: All systems reviewed & are unremarkable except as noted in HPI and below PMFSH Past Medical History Medical History Abnormal screening mammogram BMI 29.0-29.9,adult BMI 30.0-30.9,adult BMI 36.0-36.9,adult BMI over 35 Kidney stone Lung nodule seen on imaging study Overweight with body mass index (BMI) of 28 to 28.9 in adult Right carpal tunnel syndrome Surgical History Surgical History History of appendectomy History of carpal tunnel surgery of left wrist open left carpal tunnel release December 17, 2022 History of carpal tunnel surgery of right wrist open carpal tunnel release January 14, 2023 History of laminectomy History of lobectomy of lung Hx of hysterectomy Wound dehiscence Right carpal tunnel incision Family History Family History Father No problems noted. Mother Dementia Sibling Diabetes mellitus Morbid obesity Other Carcinoma of colon Family history of malignant neoplasm of breast Social History Social History Smoking status: Never smoker Second hand tobacco smoke exposure: Yes Alcohol intake: never Substance use: never Substance use type: does not use Lack of Transportation: No Lack of Food: Never True Current Housing: I Have Housing Concerned About Future Housing: No Difficulty Paying Gas/Electric Bills: No Difficulty Paying for Meds: No Currently Unemployed: No Education: Bachelor's Degree Difficulty w/ Childcare or Family Care: No Living arrangements: alone Occupation/Education: occupation 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 EYES: PERRLA and EOMI. ENT: grossly unremarkable NECK: Supple. CHEST: No respiratory distress. HEART: Regular rate and rhythm ABDOMEN: Soft, nontender, nondistended EXTREMITIES: Normal range of motion. SKIN: Warm, dry, no rash. NEURO: Alert and oriented x3. PSYCH: Normal mood and affect. Course Vital Signs Vital signs: Vital Signs Temperature 98.9 F 08/25/23 19:25 Pulse Rate 91 08/25/23 19:25 Respiratory Rate 18 08/25/23 19:25 Blood Pressure 123/64 08/25/23 19:25 Pulse Oximetry 100 08/25/23 19:25 Oxygen Delivery Room Air 08/25/23 19:25 Temperature 98.9 F 08/25/23 19:25 Pulse Rate 81 08/25/23 21:27 Respiratory Rate 18 08/25/23 21:27 Blood Pressure 117/76 08/25/23 21:27 Pulse Oximetry 100 08/25/23 21:27 Oxygen Delivery Room Air 08/25/23 19:25 MDM - Female Genitourinary MDM Narrative Medical decision making narrative: 47-year-old female presenting with dysuria in the setting of recent ureteral stent.
[2023-08-25 20:10] LABS: Appearance Urine Cloudy (Clear); Bacteria Urine None Seen /hpf; Bilirubin Urine Negative (Negative); Blood Urine 3+ (Negative); Color Urine Yellow (Yellow); Glucose Urine UA Negative (Negative); Ketones Urine Negative (Negative); Leukocyte Esterase Ur 2+ LEU/UL (Negative); Nitrate Urine Negative (Negative); Non Pathogenic Casts 0-2; Protein Urine 2+ mg/dL (Negative); RBC Urine >100 /hpf (0-2); Specific Grav Ur 1.024 (1.001-1.035); Squamous Epithelial Cell Urine Occasional /hpf (Few); WBC Urine 21-50 /hpf; pH Urine 7.5 (5.0-9.0)
[2023-08-25 20:12] LABS: Basophils Absolute Auto 0.1 K/mm3 (0.0-0.1); Basophils Percent Auto 1.3 % (0.2-1.2); Eosinophils Absolute Auto 0.4 K/mm3 (0-0.3); Hemoglobin 13.2 g/dL (12.0-15.0); Immature Granulocyte Absolute 0.01 K/mm3 (0.00-0.031); Immature Granulocyte Percent A 0.1 % (0-0.5); Lymphocytes Absolute Auto 3.44 K/mm3 (0.9-3.2); Lymphocytes Percent Auto 34.5 % (18.3-44.2); Mean Corpuscular HGB Conc 32.2 g/dl (32-36); Mean Corpuscular Hemoglobin 28.1 pg (26-34); Mean Corpuscular Volume 87.2 fl (80-100); Mean Platelet Volume 9.5 fl (7.4-10.4); Monocytes Absolute Auto 0.7 K/mm3 (0.1-0.6); Monocytes Percent Auto 6.6 % (2.6-8.5); Neutrophils Absolute Auto 5.3 K/mm3 (1.3-6.7); Neutrophils Percent Auto 53.5 % (45.5-73.1); Platelet Count Result 273 k/mm3 (150-375); Red Cell Distribution Width 13.1 % (11.5-14.5)
[2023-08-25 20:16] LABS: Add Urine Microscopic? YES
[2023-08-25 20:22] LABS: Anion Gap 9 mmol/L (8-16); Blood Urea Nitrogen 18 mg/dL (7-17); Calcium 9.4 mg/dL (8.4-10.2); Carbon Dioxide 27 mmol/L (22-30); Chloride 105 mmol/L (98-107); Estimated CRCL calculation 84 ml/min; Estimated Glomerular Filt Rate > 60; Glucose 87 mg/dL (65-110); Potassium 3.6 mmol/L (3.4-5.0); Sodium 141 mmol/L (137-145)
[2023-08-25] MEDS: CEPHALEXIN 500 MG CAPSULE PO (20:34)
[2023-08-25 21:27] VITALS: BP 117/76; PULSE 81; RESP 18; O2SAT 100
== END 2023-08-25 21:28 | disposition home or self-care (01) ==
PROVIDERS: Emergency Provider Emergency Medicine; PCP Family Medicine
DX: N39.0 Urinary tract infection, site not specified (principal); Z87.442 Personal history of urinary calculi; E66.3 Overweight; Z68.34 Body mass index [BMI] 34.0-34.9, adult; Z96.0 Presence of urogenital implants; Z90.2 Acquired absence of lung [part of]
CPT/HCPCS: 36415; 80048; 81001; 85025; 87086; 87088; 99283; A9270

== ENCOUNTER 2023-09-29 09:53 | Emergency (ER) | payer OTHER, SELFPAY ==
--- NOTE | ~2023-09-29 | CT_ITS ---
EXAMINATION: CTA brain carotid DATE: 09/29/2023 11:50 INDICATION: Worsening headache over the last 2-3 weeks TECHNIQUE: Computed tomography (CT) of the head was performed without and subsequently with 100 CC Om nipaque 350 intravenous contrast. The mA was adjusted according to patient size. Iterative reconstruc tion technique was employed. Exam dose: 1633.52 mGy-cm total exam DLP. COMPARISON: December 24, 2020 CT brain FINDINGS: Normal aortic arch and great vessels. There is no significant stricture, atherosclerotic pl aque or calcification, aneurysm or dissection or occlusion of the common carotid, internal carotid ar teries, vertebral or basilar arteries. The [place] is intact, without evidence of aneurysm. Patent anterior, posterior and middle cerebral arteries without stenosis or occlusion or aneurysm. No intracranial mass lesion or hemorrhage or cerebrovascular accident. No midline shift or mass effec t. Normal olivo-white matter differentiation. Normal ventricular size. No subdural or epidural hematoma. The orbital contents are intact. There is patchy soft tissue thickening of the ethmoid air cells bilaterally. The right frontal sinus is undeveloped. The left frontal sinus and the included axilla sinuses are unremarkable. There is min imal mucoperiosteal thickening of the sphenoid sinuses, right greater than left. The mastoid air cells are normally developed and aerated bilaterally. Middle and inner ear apparatus appear normal. No fracture or bone destruction of the cranial vault. IMPRESSION: No significant stenosis or evidence of aneurysm, dissection or occlusion of the carotid or vertebral arteries or their branches No significant intracranial abnormality Mild patchy soft tissue thickening at the ampulla air cells and mild right and minimal left sphenoid mucoperiosteal thickening Reviewed, dictated and finalized at [facility]. Reviewed, dictated and finalized at [facility]. 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
[2023-09-29 10:03] VITALS: BP 117/89; PULSE 83; RESP 20; TEMP 36.7; O2SAT 100
[2023-09-29 10:16] VITALS: BP 119/81; O2SAT 100
[2023-09-29 10:31] VITALS: BP 113/80; O2SAT 100
[2023-09-29 10:46] VITALS: BP 100/81; O2SAT 100
--- NOTE | 2023-09-29 10:51 | ED.HA ---
HPI - Headache General Chief Complaint: Headache Stated Complaint: REBOLLEDO,BLURRY VISION S/P SHINGLES SHOT 09/05/23 Time Seen by Provider: 09/29/23 10:03 History of Present Illness HPI Narrative: patient had the shingles shot about 2-3 weeks ago, and since then has been having headaches every day, which gradually got worse throughout the day, no focal numbness or weakness, she had about an of headache today that she full in her vision was blurring and that she was going to pass out. The financially and headaches. No recent trauma. she is very worried about an aneurysm Related Data Allergies Allergy/AdvReac Type Severity Reaction Status Date / Time Penicillins Allergy Unknown Unknown Verified 09/29/23 10:04 Review of Systems Review of Systems: CONST: No fever. HEENT: No sore throat C/V: No chest pain RESP: No cough GI: no abdominal pain : No dysuria. M/S: No joint pain. SKIN: No rash. NEURO: [ headache without focal numbness or weakness] PSYCH: slightly anxious PMFSH Past Medical History Medical History Abnormal screening mammogram BMI 29.0-29.9,adult BMI 30.0-30.9,adult BMI 36.0-36.9,adult BMI over 35 Kidney stone Lung nodule seen on imaging study Overweight with body mass index (BMI) of 28 to 28.9 in adult Right carpal tunnel syndrome Surgical History Surgical History History of appendectomy History of carpal tunnel surgery of left wrist open left carpal tunnel release December 17, 2022 History of carpal tunnel surgery of right wrist open carpal tunnel release January 14, 2023 History of laminectomy History of lobectomy of lung Hx of hysterectomy Wound dehiscence Right carpal tunnel incision Family History Family History Father No problems noted. Mother Dementia Sibling Diabetes mellitus Morbid obesity Other Carcinoma of colon Family history of malignant neoplasm of breast Social History Social History Smoking status: Never smoker Second hand tobacco smoke exposure: Yes Alcohol intake: never Substance use: never Substance use type: does not use Lack of Transportation: No Lack of Food: Never True Current Housing: I Have Housing Concerned About Future Housing: No Difficulty Paying Gas/Electric Bills: No Difficulty Paying for Meds: No Currently Unemployed: No Education: Bachelor's Degree Difficulty w/ Childcare or Family Care: No Living arrangements: alone Occupation/Education: occupation 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 EYES: EOMI, conjunctiva normal ENT: Hearing grossly intact LUNGS: Nonlabored breathing. HEART: [Regular rate and rhythm] ABD: [Soft], [nontender to palpation] EXT: Normal range of motion SKIN: [No rashes or lesions.] NEURO: [Alert and oriented x 3. No gross focal sensory or strength deficits.] no facial droop. ambulate with normal steady gait. Clear speech. PSYCH: Normal affect Course Vital Signs Vital signs: Vital Signs Temperature 98.0 F 09/29/23 10:03 Pulse Rate 83 09/29/23 10:03 Respiratory Rate 20 09/29/23 10:03 Blood Pressure 117/89 09/29/23 10:03 Pulse Oximetry 100 09/29/23 10:03 Temperature 98.0 F 09/29/23 10:03 Pulse Rate 83 09/29/23 10:03 Respiratory Rate 20 09/29/23 10:03 Blood Pressure 100/81 09/29/23 10:46 Pulse Oximetry 100 09/29/23 10:46 MDM - Headache MDM Narrative Medical decision making n
[2023-09-29 11:11] LABS: Basophils Absolute Auto 0.1 K/mm3 (0.0-0.1); Basophils Percent Auto 1.5 % (0.2-1.2); Eosinophils Absolute Auto 0.3 K/mm3 (0-0.3); Eosinophils Percent Auto 4.7 % (0-4.4); Hematocrit 41.5 % (37.0-47.0); Hemoglobin 13.1 g/dL (12.0-15.0); Immature Granulocyte Absolute 0.01 K/mm3 (0.00-0.031); Immature Granulocyte Percent A 0.2 % (0-0.5); Lymphocytes Absolute Auto 2.34 K/mm3 (0.9-3.2); Lymphocytes Percent Auto 38.3 % (18.3-44.2); Mean Corpuscular HGB Conc 31.6 g/dl (32-36); Mean Corpuscular Volume 88.7 fl (80-100); Mean Platelet Volume 9.6 fl (7.4-10.4); Monocytes Absolute Auto 0.5 K/mm3 (0.1-0.6); Monocytes Percent Auto 7.7 % (2.6-8.5); Neutrophils Absolute Auto 2.9 K/mm3 (1.3-6.7); Neutrophils Percent Auto 47.6 % (45.5-73.1); Platelet Count Result 236 k/mm3 (150-375); Red Blood Count 4.68 M/mm3 (4.2-5.4); Red Cell Distribution Width 12.8 % (11.5-14.5); White Blood Count 6.1 K/mm3 (4.5-10.0)
[2023-09-29 11:22] LABS: Anion Gap 5 mmol/L (8-16); Blood Urea Nitrogen 15 mg/dL (7-17); Calcium 9.1 mg/dL (8.4-10.2); Carbon Dioxide 28 mmol/L (22-30); Chloride 108 mmol/L (98-107); Estimated CRCL calculation 84 ml/min; Estimated Glomerular Filt Rate > 60; Glucose 72 mg/dL (65-110); Potassium 4.1 mmol/L (3.4-5.0); Sodium 141 mmol/L (137-145)
== END 2023-09-29 12:40 | disposition home or self-care (01) ==
PROVIDERS: Emergency Provider Emergency Medicine; PCP Family Medicine
DX: R51.9 Headache, unspecified (principal); E66.3 Overweight; Z68.34 Body mass index [BMI] 34.0-34.9, adult; Z87.442 Personal history of urinary calculi; Z90.2 Acquired absence of lung [part of]; Z90.710 Acquired absence of both cervix and uterus
CPT/HCPCS: 36415; 70496; 70498; 80048; 85025; 99284; Q9967

== ENCOUNTER 2023-10-24 10:49 | Outpatient (CLI) | payer OTHER, SELFPAY ==
--- NOTE | ~2023-10-24 | MM_ITS ---
EXAMINATION: MM diagnostic katheryn LT w katherine HISTORY: Six-month follow-up for probably benign left breast mass TECHNIQUE: Craniocaudal, mediolateral, and mediolateral oblique 3-D tomosynthesis images of the left breast were performed and synthetic 2-D images were generated. CAD analysis was submitted and interpr eted. COMPARISON: 04/22/2023, 01/17/2023, 10/27/2021, 10/24/2016 BREAST PARENCHYMAL COMPOSITION: There are scattered areas of fibroglandular density. FINDINGS: There is a 6 mm round mass with indistinct margins in the far posterior third of the outer breast at the 3:00 location approximately 12 cm from the nipple. No definite interval change is ident ified. IMPRESSION: 1. Persistent left breast mass without definite change. Further evaluation with targeted left breast ultrasound is recommended. Patient is unable to stay for the ultrasound examination today and will sc hedule at a later date. BI-RADS Category 0: Incomplete: Needs additional imaging evaluation. Reviewed, dictated and finalized at location [facility]. T BUYER IMPRESSION: 1. Persistent left breast mass without definite change. Further evaluation with targeted left breast ultrasound is recommended. Patient is unable to stay for the ultrasound examination today and will schedule at a later date. BI-RADS Category 0: Incomplete: Needs additional imaging evaluation.
== END 2023-10-24 10:50 | disposition home or self-care (01) ==
PROVIDERS: PCP Family Medicine; Visit Provider Physician Assistant Medical
DX: N63.20 Unspecified lump in the left breast, unspecified quadrant (principal); R92.8 Other abnormal and inconclusive findings on diagnostic imaging of breast
CPT/HCPCS: 77061; 77065; G0279

== ENCOUNTER 2023-12-02 09:31 | Outpatient (CLI) | payer OTHER, SELFPAY ==
--- NOTE | ~2023-12-02 | US_ITS ---
US breast LT limited DATE: 12/02/2023 10:09 INDICATION: 6 mm round mammographic mass with indistinct margins in the far posterior third of the ou ter breast at 3:00 approximately 12 cm from the nipple was reported on October 24, 2023 left diagnos tic mammogram TECHNIQUE: The technologist scanned the breast from 2:00 to 4:00. The technologist indicated the margarita ent needed to leave before I was able to have an opportunity scanned the patient. COMPARISON: October 24, 2023 diagnostic left mammogram 04/22/2023 left diagnostic mammogram 01/17/2023 bilateral screening mammogram October 27, 2021 bilateral screening mammogram FINDINGS: No suspicious mass or shadowing is detected sonographically. No definite sonographic correl ate for the mammographic finding is noted. There is a chronic circumscribed low-density opacity in the posterior upper outer left breast approxi mately 2:00 position on the October 24, 2023 diagnostic mammogram examination, also present on 2021. This measures approximately 4.9 mm on October 24, 2023 mammogram and 4.4 mm on 2021 mammogram. The low-density, the circumscribed margins and the minimal interval change in m ammographic size suggest benign process. IMPRESSION: BI-RADS Category 2: Benign finding Recommendation: Routine annual mammographic screening Reviewed, dictated and finalized at [facility]. Reviewed, dictated and finalized at location [facility].
== END 2023-12-02 09:32 | disposition home or self-care (01) ==
LOC: ANHIMG 09:35
PROVIDERS: PCP Family Medicine; Visit Provider Nurse Practitioner Family
DX: N63.20 Unspecified lump in the left breast, unspecified quadrant (principal)
CPT/HCPCS: 76642

== ENCOUNTER 2024-05-07 14:18 | Emergency (ER) | payer OTHER, SELFPAY ==
--- NOTE | ~2024-05-07 | XR_ITS ---
EXAMINATION: XR chest 2V 05/07/2024 14:53 INDICATION: Cough for 5 days with chest pressure PROCEDURE: 2 view chest COMPARISON: Comparison to multiple prior studies sequentially, with oldest reviewed study dated 09/18. FINDINGS: The lungs are clear. The cardiomediastinal silhouette is within normal limits. There are no pleural effusions. There is no pneumothorax suspected. IMPRESSION: 1: NO ACUTE CARDIOPULMONARY DISEASE. Reviewed, dictated and finalized at location [facility].
--- NOTE | 2024-05-07 14:30 | ED.URI ---
HPI - URI/Sore Throat General Chief Complaint: Upper Respiratory Infection Stated Complaint: BODY ACHES/REBOLLEDO/COUGH/CHEST TIGHTNESS/SOB/TIRED Time Seen by Provider: 05/07/24 14:30 Source: patient Mode of arrival: ambulatory Limitations: no limitations History of Present Illness HPI Narrative: 48-year-old female presents with complaint of cough, chest congestion, nasal congestion, fatigue, body aches, headaches for 4 days. Patient reports chest pain with coughing. Feels like pressure in chest and cannot take full deep breath. Denies nausea vomiting. Taking DayQuil NyQuil cold and flu. No chest pain or shortness of breath at this time. All systems reviewed and negative except as noted above. Related Data Allergies Allergy/AdvReac Type Severity Reaction Status Date / Time Penicillins Allergy Unknown Unknown Verified 05/07/24 14:35 Review of Systems Review of Systems: CONSTITUTIONAL: Denies fever, chills, or sweats. Reports fatigue. EYES: Denies visual changes, redness, or discharge. ENT: Reports rhinorrhea, congestion, sore throat. Denies otalgia. CARDIOVASCULAR: Denies chest pain, palpitations, or edema. RESPIRATORY: Reports cough. Denies dyspnea. GASTROINTESTINAL: Denies abdominal pain, nausea, vomiting, or diarrhea. GENITOURINARY: Denies dysuria or hematuria. SKIN: Denies rash or itching. MUSCULOSKELETAL: Denies back pain, joint pain. Reports myalgia. NEUROLOGIC: Denies headache, numbness, or weakness. PSYCHIATRIC: Denies anxiety or depression. All other systems reviewed are negative, except as documented in HPI. [facility] Past Medical History Medical History Abnormal screening mammogram BMI 29.0-29.9,adult BMI 30.0-30.9,adult BMI 35.0-35.9,adult BMI 36.0-36.9,adult BMI over 35 Kidney stone Lung nodule seen on imaging study Overweight with body mass index (BMI) of 28 to 28.9 in adult Right carpal tunnel syndrome Surgical History Surgical History History of appendectomy History of carpal tunnel surgery of left wrist open left carpal tunnel release December 17, 2022 History of carpal tunnel surgery of right wrist open carpal tunnel release January 14, 2023 History of laminectomy History of lobectomy of lung Hx of hysterectomy Wound dehiscence Right carpal tunnel incision Family History Family History Father No problems noted. Mother Dementia Sibling Diabetes mellitus Morbid obesity Other Carcinoma of colon Family history of malignant neoplasm of breast Social History Social History Smoking status: Never smoker Second hand tobacco smoke exposure: Yes Alcohol intake: never Substance use: never Substance use type: does not use Lack of Transportation: No Lack of Food: Never True Current Housing: I Have Housing Concerned About Future Housing: No Difficulty Paying Gas/Electric Bills: No Difficulty Paying for Meds: No Currently Unemployed: No Education: Bachelor's Degree Difficulty w/ Childcare or Family Care: No Living arrangements: alone Occupation/Education: occupation 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 There is no relevant family history pertinent to the presenting complaint. Exam Narrative: GENERAL: This is a well-nourished, well-developed patient, in no apparent distress. HEAD: normocephalic, atraumatic. EYES: PERRL. Sclera clear/white. Vision is grossly intact. EARS: External ears normal, auditory canals clear and without drainage, TMs normal without perforation. Hearing grossly intact. NOSE: External
[2024-05-07 14:34] VITALS: BP 112/74; PULSE 84; RESP 16; TEMP 36.3; O2SAT 99
[2024-05-07 14:56] LABS: EDINFLUASCREEN Negative; EDINFLUBSCREEN Negative
== END 2024-05-07 15:18 | disposition home or self-care (01) ==
PROVIDERS: Emergency Provider Nurse Practitioner Family; PCP Family Medicine
DX: J06.9 Acute upper respiratory infection, unspecified (principal); Z20.822 Contact with and (suspected) exposure to COVID-19; Z90.2 Acquired absence of lung [part of]
CPT/HCPCS: 71046; 87426; 87804; 99213; G0463

== ENCOUNTER 2024-06-10 17:51 | Emergency (ER) | payer OTHER, SELFPAY ==
[2024-06-10 18:03] VITALS: BP 104/78; PULSE 95; RESP 16; TEMP 36.3; O2SAT 97
[2024-06-10 18:21] LABS: EDCOVIDSCREEN Negative (Negative); EDINFLUASCREEN Negative (Negative); EDINFLUBSCREEN Negative (Negative)
--- NOTE | 2024-06-10 18:59 | ED.URI ---
HPI - URI/Sore Throat General Chief Complaint: Upper Respiratory Infection Stated Complaint: SOB/COUGH/SINUS Time Seen by Provider: 06/10/24 18:10 Source: patient and RN notes reviewed Mode of arrival: ambulatory Limitations: no limitations History of Present Illness HPI Narrative: Patient presents today complaining of a 3 day history of nonproductive cough and shortness of breath with exertion. She also reports some pain in the anterior chest with severe coughing episodes. Denies fever or any additional symptoms. Denies any known sick contacts. She has been taking DayQuil, NyQuil, Mucinex DM and cough drops without much relief. Related Data Allergies Allergy/AdvReac Type Severity Reaction Status Date / Time Penicillins Allergy Unknown Unknown Verified 06/10/24 18:07 Review of Systems Review of Systems: CONSTITUTIONAL: Denies body aches, fever, chills, or sweats. EYES: Denies visual changes, redness, or discharge. ENT: Denies rhinorrhea, congestion, sore throat, or otalgia. CARDIOVASCULAR: Denies chest pain, palpitations, or edema. RESPIRATORY:+ cough, shortness of breath, chest wall pain GASTROINTESTINAL: Denies abdominal pain, nausea, vomiting, or diarrhea. GENITOURINARY: Denies dysuria or hematuria. SKIN: Denies rash, itching, or wounds. MUSCULOSKELETAL: Denies back pain, joint pain, or myalgia. NEUROLOGIC: Denies headache, numbness, tingling, or weakness. PSYCH: Denies depression or anxiety. [facility] Past Medical History Medical History Abnormal screening mammogram BMI 29.0-29.9,adult BMI 30.0-30.9,adult BMI 35.0-35.9,adult BMI 36.0-36.9,adult BMI over 35 Kidney stone Lung nodule seen on imaging study Overweight with body mass index (BMI) of 28 to 28.9 in adult Right carpal tunnel syndrome Surgical History Surgical History History of appendectomy History of carpal tunnel surgery of left wrist open left carpal tunnel release December 17, 2022 History of carpal tunnel surgery of right wrist open carpal tunnel release January 14, 2023 History of laminectomy History of lobectomy of lung Hx of hysterectomy Wound dehiscence Right carpal tunnel incision Family History Family History Father No problems noted. Mother Dementia Sibling Diabetes mellitus Morbid obesity Other Carcinoma of colon Family history of malignant neoplasm of breast Social History Social History Smoking status: Never smoker Second hand tobacco smoke exposure: Yes Alcohol intake: never Substance use: never Substance use type: does not use Lack of Transportation: No Lack of Food: Never True Current Housing: I Have Housing Concerned About Future Housing: No Difficulty Paying Gas/Electric Bills: No Difficulty Paying for Meds: No Currently Unemployed: No Education: Bachelor's Degree Difficulty w/ Childcare or Family Care: No Living arrangements: alone Occupation/Education: occupation 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 Please see nursing chart for further information. There is no relevant family history pertinent to the presenting complaint Exam Narrative: GENERAL: Mild ill-appearing, well-nourished, and in no acute distress. HEAD: Normocephalic, atraumatic. EYES: EOMI. No redness or drainage. Conjunctivae normal. ENT: Mucous membranes pink and moist. Nares clear. No rhinorrhea. TMs normal bilaterally. Throat normal. Uvula midline. NECK: Normal AROM. Supple.
== END 2024-06-10 18:23 | disposition home or self-care (01) ==
PROVIDERS: Emergency Provider Nurse Practitioner; PCP Family Medicine
DX: J06.9 Acute upper respiratory infection, unspecified (principal); Z20.822 Contact with and (suspected) exposure to COVID-19; Z90.2 Acquired absence of lung [part of]
CPT/HCPCS: 87426; 87804; 99213; G0463

== ENCOUNTER 2024-07-11 13:15 | Emergency (ER) | payer OTHER, SELFPAY ==
--- NOTE | ~2024-07-11 | XR_ITS ---
EXAMINATION: XR chest 2V DATE: 07/11/2024 14:42 INDICATION: One month of cough TECHNIQUE: PA and lateral views of the chest were obtained. COMPARISON: Chest radiograph dated 05/07/2024 FINDINGS: The lungs are clear with no focal airspace opacities, pulmonary edema, pleural effusion or pneumothor ax. The cardiomediastinal silhouette is normal. Moderate thoracic spondylosis with mild anterior wedg ing of a few mid thoracic vertebral bodies. IMPRESSION: 1. No acute cardiopulmonary disease. Reviewed, dictated and finalized at location A.
[2024-07-11 13:56] VITALS: BP 109/85; PULSE 77; RESP 16; TEMP 36.1; O2SAT 100
--- NOTE | 2024-07-11 14:21 | ED.URI ---
HPI - URI/Sore Throat General Chief Complaint: Upper Respiratory Infection Stated Complaint: cough,hard to breath Source: patient Mode of arrival: ambulatory Limitations: no limitations History of Present Illness HPI Narrative: 48-year-old female presented for complaint of cough and nasal congestion and drainage for 1 month. At the onset she was seen in the clinic and given an albuterol inhaler. She has been taking Claritin D and Nasonex over the last 5 days. Endorses shortness of breath with exertion and right shoulder blade pain intermittently. Denies nausea, vomiting, diarrhea, fevers or chills. Related Data Allergies Allergy/AdvReac Type Severity Reaction Status Date / Time Penicillins Allergy Unknown Unknown Verified 07/11/24 14:06 Review of Systems Review of Systems: CONSTITUTIONAL: Denies body aches, fever, chills, or sweats. EYES: Denies visual changes, redness, or discharge. ENT: Reports rhinorrhea, congestion, denies sore throat, or otalgia. CARDIOVASCULAR: Denies chest pain, palpitations, or edema. RESPIRATORY: Reports cough, sob, denies wheezing. GASTROINTESTINAL: Denies abdominal pain, nausea, vomiting, or diarrhea. MUSCULOSKELETAL: Denies back pain, joint pain, or myalgia. NEUROLOGIC: Denies headache All systems reviewed & are unremarkable except as noted in HPI and below PMFSH Past Medical History Medical History Abnormal screening mammogram BMI 29.0-29.9,adult BMI 30.0-30.9,adult BMI 35.0-35.9,adult BMI 36.0-36.9,adult BMI over 35 Kidney stone Lung nodule seen on imaging study Overweight with body mass index (BMI) of 28 to 28.9 in adult Right carpal tunnel syndrome Surgical History Surgical History History of appendectomy History of carpal tunnel surgery of left wrist open left carpal tunnel release December 17, 2022 History of carpal tunnel surgery of right wrist open carpal tunnel release January 14, 2023 History of laminectomy History of lobectomy of lung Hx of hysterectomy Wound dehiscence Right carpal tunnel incision Family History Family History Father No problems noted. Mother Dementia Sibling Diabetes mellitus Morbid obesity Other Carcinoma of colon Family history of malignant neoplasm of breast Social History Social History Smoking status: Never smoker Second hand tobacco smoke exposure: Yes Alcohol intake: never Substance use: never Substance use type: does not use Lack of Transportation: No Lack of Food: Never True Current Housing: I Have Housing Concerned About Future Housing: No Difficulty Paying Gas/Electric Bills: No Difficulty Paying for Meds: No Currently Unemployed: No Education: Bachelor's Degree Difficulty w/ Childcare or Family Care: No Living arrangements: alone Occupation/Education: occupation 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 Please see nursing chart for further information. There is no relevant family history pertinent to the presenting complaint Exam Narrative: GENERAL: Well-appearing, in no acute distress. EYES: EOMI. No redness or drainage. Conjunctivae normal. ENT: Mucous membranes pink and moist. Nasal congestion noted TMs normal bilaterally. Throat normal. Uvula midline. NECK: Normal AROM. Supple. CHEST: No respiratory distress. Lungs clear diminished to all [place]. Occasional nonproductive cough noted HEART: Regular rate and rhythm. No murmur appreciated. ABDOMEN: Soft, nontender, nondistended, normal active bowel sounds. SKIN: Warm, dry, no rash. Capillary refill normal. Normal skin turgor. NEURO: Alert and oriented x3. Gait steady. PSYCH: Normal affect. Course Course Emergency Course: Patient is aware of diagnosis, understands and agrees to treatment plan. Anticipatory guidance given. Patient agrees to follow-up as directed and is aware of reasons to seek care at the emergency department. Portions of this record may have been created with voice recognition software Level of Care: Express Care Visit Vital Signs Vital signs: Vital Signs Temperature 96.9 F L 07/11/24 13:56 Pulse Rate 77 07/11/24 13:56 Respiratory Rate 16 07/11/24 13:56 Blood Pressure 109/85 07/11/24 13:56 Pulse Oximetry 100 07/11/24 13:56 Temperature 96.9 F L 07/11/24 13:56 Pulse Rate 77 07/11/24 13:56 Respiratory Rate 16 07/11/24 13:56 Blood Pressure 109/85 07/11/24 13:56 Pulse Oximetry 100 07/11/24 13:56 MDM - URI/Sore Throat MDM Narrative Medical decision making narrative: Discussed physical exam findings and chest x-ray. Reviewed Rxs. Advised supportive measures and signs/symptoms to go to the ER. Pt is appropriate for outpt treatment and f/u. Differential Diagnosis Differential diagnosis: Likely upper respiratory infection, sinusitis, viral infection, bronchitis, pharyngitis and other Imaging Data Radiologist's impression: Patient: SuhasDecember : 1975 MR#: [id number] Age: 48 Acct:[id number] Loc: [facility] ADM Date: 07/11/24Attending Dr: Ordering Physician: Ashley Vogt APRN Date of Service: 07/11/24 Procedure(s): XR chest 2V Accession Number(s): [id number] cc: Ashley Vogt APRN; Primitivo Rehman EXAMINATION: XR chest 2V DATE: 07/11/2024 14:42 INDICATION: One month of cough TECHNIQUE: PA and lateral views of the chest were obtained. COMPARISON: Chest radiograph dated 05/07/2024 FINDINGS: The lungs are clear with no focal airspace opacities, pulmonary edema, pleural effusion or pneumothorax. The cardiomediastinal silhouette is normal. Moderate thoracic spondylosis with mild anterior wedging of a few mid thoracic vertebral bodies. IMPRESSION: 1. No acute cardiopulmonary disease. Discharge Plan Discharge Clinical Impression: Bronchitis Patient Disposition: Home, Self-Care Condition: Stable Instructions: Antibiotic Form, Pneumonia (ED) Additional Instructions: Acute bronchitis can be contagious because it is usually caused by infection with a virus or bacteria. It is usually for a few days but you can be contagious for up to one week. Take medication as directed Recommend Flonase spray and Zyrtec (or Claritin/Liliana) for nasal congestion Prescription Cough syrup may cause drowsiness; avoid driving or take it at night time. Tylenol 1000mg every 8 hours as needed for pain Symptomatic treatment includes: rest, fluids, and increase humidity of the air at home. Follow up with your primary care provider as needed in 1 week Go to the ER for worsening symptoms or concerns Prescriptions: New codeine-guaifenesin [Guaifenesin AC] 10-100 mg/5 mL liquid 10 ml PO Q8H PRN (Reason: cough) Qty: 120 0RF azithromycin [Zithromax Z-Rde] 250 mg tablet See Rx Instructions .ROUTE .COMPLEX Qty: 6 0RF Rx Instructions: For 250 mg dose pack: take 500 mg today (day 1), then 250 mg for 4 days (days 2-5) prednisone 50 mg tablet 50 mg PO DAILY Qty: 5 0RF No Action albuterol sulfate 90 mcg/actuation HFA aerosol inhaler 2 inh inhalation Q4-6H PRN (Reason: shortness of breath or wheezing) Qty: 8.5 0RF (DME) BreatheRite MDI Spacer Spacer See Rx Instructions .ROUTE .MEDSUPPLY Qty: 1 0RF Rx Instructions: As directed Follow-up/Referrals: Primitivo Rehman MD [Primary Care Provider] -
== END 2024-07-11 15:13 | disposition home or self-care (01) ==
PROVIDERS: Emergency Provider Nurse Practitioner Family; PCP Family Medicine
DX: J40 Bronchitis, not specified as acute or chronic (principal); Z90.2 Acquired absence of lung [part of]
CPT/HCPCS: 71046; 99213; G0463

== ENCOUNTER 2024-07-22 19:48 | Observation (INO) | payer OTHER, SELFPAY ==
--- NOTE | ~2024-07-22 | CT_ITS ---
CLINICAL INDICATION: Abdominal pain COMPARISON: 08/11/2020. TECHNIQUE: Multiple contiguous axial images of the abdomen and pelvis were performed following the ad ministration of with 100 mL Omnipaque-350 intravenous contrast The dose-length product (DLP) was 1085.69 mGy-cm. Automated exposure control and iterative reconstruction technique were employed. FINDINGS/OBSERVATIONS: Visualized lower thorax: The bilateral lung bases are clear. The heart is of normal size, without pericardial effusion. Liver: The liver is enlarged measuring 20 cm in longitudinal dimension. Gallbladder and biliary system: A lamellated stone is redemonstrated within the gallbladder, which is only minimally distended but do es demonstrate pericholecystic fluid. No surrounding inflammatory change is present. Pancreas: The pancreas enhances homogeneously without ductal dilatation. Spleen: The spleen enhances homogeneously and is not enlarged measuring 8 cm in longitudinal dimension. Kidneys: The bilateral kidneys enhance symmetrically without hydronephrosis or renal calculi. Adrenal glands: Unremarkable. Gastrointestinal tract: Fecal stasis within the transverse colon. Retained gastric contents within the stomach, suggesting recent oral intake. Appendix: The appendix is not definitively visualized. However, no pericecal inflammatory change is identified suggest the presence of acute appendicitis. Vasculature: Unremarkable. No aneurysmal dilatation or significant stenosis. Lymph nodes: No pathologically enlarged or morphologically suspicious lymph nodes within the retroperitoneum or at the root of the mesentery. Pelvic structures: The bladder is only minimally distended, and otherwise unremarkable. The uterus is surgically absent. Body wall and musculoskeletal: Trace degenerative disease within the lower thoracic/lumbosacral spine. IMPRESSION: Decompressed gallbladder with a large lamellated stone. Pericholecystic fluid without gallbladder wall thickening. Hepatomegaly, unchanged. Reviewed, dictated and finalized at location A. 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
[2024-07-22 20:01] VITALS: BP 136/83; PULSE 96; RESP 18; TEMP 36.6; O2SAT 100
[2024-07-22 21:23] LABS: Basophils Absolute Auto 0.1 K/mm3 (0.0-0.1); Basophils Percent Auto 1.1 % (0.2-1.2); Eosinophils Absolute Auto 0.3 K/mm3 (0-0.3); Eosinophils Percent Auto 3.1 % (0-4.4); Hematocrit 43.4 % (37.0-47.0); Hemoglobin 14.4 g/dL (12.0-15.0); Immature Granulocyte Absolute 0.04 K/mm3 (0.00-0.031); Immature Granulocyte Percent A 0.5 % (0-0.5); Lymphocytes Absolute Auto 3.32 K/mm3 (0.9-3.2); Lymphocytes Percent Auto 40.1 % (18.3-44.2); Mean Corpuscular HGB Conc 33.2 g/dl (32-36); Mean Corpuscular Hemoglobin 28.9 pg (26-34); Mean Platelet Volume 9.5 fl (7.4-10.4); Monocytes Absolute Auto 0.5 K/mm3 (0.1-0.6); Neutrophils Absolute Auto 4.1 K/mm3 (1.3-6.7); Neutrophils Percent Auto 49.2 % (45.5-73.1); Platelet Count Result 280 k/mm3 (150-375); Red Blood Count 4.99 M/mm3 (4.2-5.4); Red Cell Distribution Width 13.2 % (11.5-14.5); White Blood Count 8.3 K/mm3 (4.5-10.0)
[2024-07-22 21:39] LABS: Alanine Aminotransferase 30 U/L (6-35); Albumin Level 4.2 g/dL (3.5-5.1); Alkaline Phosphatase 80 U/L (38-126); Anion Gap 9 mmol/L (4-12); Aspartate Amino Transferase 29 U/L (14-36); Bilirubin,Total 0.4 mg/dL (0.2-1.3); Blood Urea Nitrogen 12 mg/dL (7-17); Calcium 9.6 mg/dL (8.4-10.2); Carbon Dioxide 27 mmol/L (22-30); Chloride 102 mmol/L (98-107); Estimated CRCL calculation 87 ml/min; Estimated Glomerular Filt Rate > 60; Glucose 114 mg/dL (65-110); Lipase 111 U/L (23-300); Sodium 138 mmol/L (137-145)
[2024-07-23] VITALS (14 sets, daily range): BP systolic 100–133; BP diastolic 60–83; PULSE 62–97; RESP 12–18; TEMP 36.2–36.7; O2SAT 94–100
[2024-07-23 01:12] LABS: Add Urine Microscopic? NO; Appearance Urine Clear (Clear); Bilirubin Urine Negative (Negative); Blood Urine Negative (Negative); Color Urine Yellow (Yellow); Glucose Urine UA Negative (Negative); Ketones Urine Negative (Negative); Leukocyte Esterase Ur Negative LEU/UL (Negative); Nitrate Urine Negative (Negative); Protein Urine Negative (Negative); Specific Grav Ur > 1.045 (1.001-1.035); Urobilinogen Urine 0.2 mg/dL (<2.0)
--- NOTE | 2024-07-23 01:29 | ED_ITS ---
HPI - General Adult General Chief complaint: Abdominal Pain Stated complaint: abd pain need my gallbladder out Time Seen by Provider: 07/23/24 00:58 History of Present Illness HPI narrative: patient is a 48-year-old female who presents emergency department with chief complaint of abdominal pain. Patient reports that earlier today she was driving through [place] started having pain in the right upper quadrant radiating up to her right shoulder blade. The patient stopped at a hospital and to be [place] was seen was ruled out for PR but was found to have issues with her gallbladder. Patient states that they wanted to keep her in the hospital but she had her dogs with her and she had to drive home and come to the emergency department. The patient reports he still having pain in the right upper quadrant Related Data Allergies Allergy/AdvReac Type Severity Reaction Status Date / Time Penicillins Allergy Unknown Unknown Verified 07/23/24 00:55 Review of Systems Review of Systems: A 10 system review of systems was completed on the patient and is negative except for what is stated in the HPI. Nursing and ancillary documentation was reviewed. [facility] Past Medical History Medical History Abnormal screening mammogram BMI 29.0-29.9,adult BMI 30.0-30.9,adult BMI 35.0-35.9,adult BMI 36.0-36.9,adult BMI over 35 Kidney stone Lung nodule seen on imaging study Overweight with body mass index (BMI) of 28 to 28.9 in adult Right carpal tunnel syndrome Surgical History Surgical History History of appendectomy History of carpal tunnel surgery of left wrist open left carpal tunnel release December 17, 2022 History of carpal tunnel surgery of right wrist open carpal tunnel release January 14, 2023 History of laminectomy History of lobectomy of lung Hx of hysterectomy Wound dehiscence Right carpal tunnel incision Family History Family History Father No problems noted. Mother Dementia Sibling Diabetes mellitus Morbid obesity Other Carcinoma of colon Family history of malignant neoplasm of breast Social History Social History Smoking status: Never smoker Second hand tobacco smoke exposure: Yes Alcohol intake: never Substance use: never Substance use type: does not use Lack of Transportation: No Lack of Food: Never True Current Housing: I Have Housing Concerned About Future Housing: No Difficulty Paying Gas/Electric Bills: No Difficulty Paying for Meds: No Currently Unemployed: No Education: Bachelor's Degree Difficulty w/ Childcare or Family Care: No Living arrangements: alone Occupation/Education: occupation 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 HEAD: Normocephalic, atraumatic. EYES: PERRLA and EOMI. ENT: Nares clear, no rhinorrhea or epistaxis. Mucous membranes moist. NECK: Supple. CHEST: Clear to auscultation. No respiratory distress. HEART: Regular rate and rhythm. No murmur heard. Normal peripheral pulses. ABDOMEN: Soft, tenderness to palpation right upper quadrant, nondistended, normal active bowel sounds. EXTREMITIES: Normal range of motion. No edema. SKIN: Warm, dry, no rash. NEURO: No focal deficits. Alert and oriented x3. PSYCH: Normal mood and affect. Course Vital Signs Vital signs: Vital Signs Temperature 36.6 C 07/22/24 20:01 Pulse Rate 96 07/22/24 20:01 Respiratory Rate 18 07/22/24 20:01 Blood Pressure 136/83 07/22/24 20:01 Pulse Oximetry 100 07/22/24 20:01 Oxygen Delivery Room Air 07/22/24 20:01 Temperature 36.6 C 07/22/24 20:01 Pulse Rate 74 07/23/24 01:00 Respiratory Rate 18 07/23/24 01:00 Blood Pressure 117/75 07/23/24 01:00 Pulse Oximetry 100 07/23/24 01:00 Oxygen Delivery Room Air 07/23/24 01:00 Medical Decision Making [facility] Narrative Medical decision making narrative: differential diagnosis includes cholecystitis, choledocholithiasis, laboratory studies were obtained on the patient showed normal CBC CMP was within normal limits liver enzymes are normal lipase was 111 CT scan of the abdomen pelvis showed a calcification in the gallbladder and also showed pericholecystic fluid without thickening the gallbladder wall. Given the patient was having significant pain the case was discussed with Dr. Casillas was on-call for surgery and the patient will be Vital Signs Vital Signs: Vital Signs Temperature 36.6 C 07/22/24 20:01 Pulse Rate 96 07/22/24 20:01 Respiratory Rate 18 07/22/24 20:01 Blood Pressure 136/83 07/22/24 20:01 Pulse Oximetry 100 07/22/24 20:01 Oxygen Delivery Room Air 07/22/24 20:01 Temperature 36.6 C 07/22/24 20:01 Pulse Rate 74 07/23/24 01:00 Respiratory Rate 18 07/23/24 01:00 Blood Pressure 117/75 07/23/24 01:00 Pulse Oximetry 100 07/23/24 01:00 Oxygen Delivery Room Air 07/23/24 01:00 Lab Data 07/22/24 21:06 07/22/24 21:06 Labs: Lab Results 07/22/24 07/23/24 Range/Units 21:06 01:05 WBC 8.3 (4.5-10.0) K/mm3 RBC 4.99 (4.2-5.4) M/mm3 Hgb 14.4 (12.0-15.0) g/dL Hct 43.4 (37.0-47.0) % MCV 87.0 (80-100) fl MCH 28.9 (26-34) pg MCHC 33.2 (32-36) g/dl RDW 13.2 (11.5-14.5) % Plt Count 280 (150-375) k/mm3 MPV 9.5 (7.4-10.4) fl Immature Gran % (Auto) 0.5 (0-0.5) % Neut % (Auto) 49.2 (45.5-73.1) % Lymph % (Auto) 40.1 (18.3-44.2) % [place] % (Auto) 6.0 (2.6-8.5) % Eos % (Auto) 3.1 (0-4.4) % Baso % (Auto) 1.1 (0.2-1.2) % Lymph # (Auto) 3.32 H (0.9-3.2) K/mm3 [place] # (Auto) 0.5 (0.1-0.6) K/mm3 Eos # (Auto) 0.3 (0-0.3) K/mm3 Baso # (Auto) 0.1 (0.0-0.1) K/mm3 Abs Immat Gran (auto) 0.04 H (0.00-0.031) K/mm3 Absolute Neuts (auto) 4.1 (1.3-6.7) K/mm3 Absolute Nucleated RBC 0.000 (0.0-0.012) K/mm3 Nucleated RBC % 0.0 (0.0-0.2) % Sodium 138 (137-145) mmol/L Potassium 4.0 (3.4-5.0) mmol/L Chloride 102 (98-107) mmol/L Carbon Dioxide 27 (22-30) mmol/L Anion Gap 9 (4-12) mmol/L BUN 12 (7-17) mg/dL Creatinine 0.80 (0.7-1.0) mg/dL Estim Creat Clear Calc 87 ml/min Estimated GFR > 60 (59 - ) Glucose 114 H (65-110) mg/dL Calcium 9.6 (8.4-10.2) mg/dL Total Bilirubin 0.4 (0.2-1.3) mg/dL AST 29 (14-36) U/L ALT 30 (6-35) U/L Alkaline Phosphatase 80 (38-126) U/L Total Protein 8.0 (6.3-8.2) g/dL Albumin 4.2 (3.5-5.1) g/dL Lipase 111 (23-300) U/L Urine Color Yellow (Yellow) Urine Appearance Clear (Clear) Urine pH 6.0 (5.0-9.0) Ur Specific [place] > 1.045 H (1.001-1.035) Urine Protein Negative (Negative) mg/dL Urine Glucose (UA) Negative (Negative) mg/dL Urine Ketones Negative (Negative) mg/dL Ur Blood (Man) Negative (Negative) Urine Nitrate Negative (Negative) Urine Bilirubin Negative (Negative) Urine Urobilinogen 0.2 (<2.0) mg/dL Leukocyte Esterase Rfl Negative (Negative) COOKIE/UL Discharge Plan Discharge Clinical Impression: Acute cholecystitis, Right upper quadrant abdominal pain Patient Disposition: Still a Patient Condition: Stable Instructions: Antibiotic Form Prescriptions: No Action albuterol sulfate 90 mcg/actuation HFA aerosol inhaler 2 inh inhalation Q4-6H PRN (Reason: shortness of breath or wheezing) Qty: 8.5 0RF (DME) BreatheRite MDI Spacer Spacer See Rx Instructions .ROUTE .MEDSUPPLY Qty: 1 0RF Rx Instructions: As directed codeine-guaifenesin [Guaifenesin AC] 10-100 mg/5 mL liquid 10 ml PO Q8H PRN (Reason: cough) Qty: 120 0RF azithromycin [Zithromax Z-Dre] 250 mg tablet See Rx Instructions .ROUTE .COMPLEX Qty: 6 0RF Rx Instructions: For 250 mg dose pack: take 500 mg today (day 1), then 250 mg for 4 days (days 2-5) prednisone 50 mg tablet 50 mg PO DAILY Qty: 5 0RF Follow-up/Referrals: Primitivo Rehman MD [Primary Care Provider] - Time of Disposition: 01:33
[2024-07-23] MEDS: ONDANSETRON INJ 4 MG/2 ML VIAL IV PUSH ×4 (01:43→22:26)
[2024-07-23] MEDS: MORPHINE SULFATE (*CRX) 4 MG/ML INJ IV PUSH ×5 (01:43→22:26)
[2024-07-23] MEDS: metroNIDAZOLE 500 MG/ISO 100ML 500 MG/100 ML BAG 100 MG IVPB ×2 (02:19→07:55)
[2024-07-23] MEDS: SODIUM CHLORIDE 0.9% IV 1,000 ML 125 ML IV CONT ×2 (04:29→23:21)
[2024-07-23 07:40] LABS: Alanine Aminotransferase 29 U/L (6-35); Albumin Level 3.9 g/dL (3.5-5.1); Alkaline Phosphatase 80 U/L (38-126); Anion Gap 5 mmol/L (4-12); Aspartate Amino Transferase 31 U/L (14-36); Bilirubin,Total 0.6 mg/dL (0.2-1.3); Blood Urea Nitrogen 13 mg/dL (7-17); Calcium 9.1 mg/dL (8.4-10.2); Carbon Dioxide 26 mmol/L (22-30); Chloride 104 mmol/L (98-107); Estimated CRCL calculation 98 ml/min; Estimated Glomerular Filt Rate > 60; Glucose 92 mg/dL (65-110); Potassium 4.1 mmol/L (3.4-5.0); Sodium 135 mmol/L (137-145)
[2024-07-23 07:43] LABS: Basophils Absolute Auto 0.1 K/mm3 (0.0-0.1); Basophils Percent Auto 1.1 % (0.2-1.2); Eosinophils Absolute Auto 0.3 K/mm3 (0-0.3); Eosinophils Percent Auto 3.8 % (0-4.4); Hematocrit 39.1 % (37.0-47.0); Hemoglobin 12.9 g/dL (12.0-15.0); Immature Granulocyte Absolute 0.03 K/mm3 (0.00-0.031); Immature Granulocyte Percent A 0.4 % (0-0.5); Lymphocytes Absolute Auto 3.47 K/mm3 (0.9-3.2); Mean Corpuscular Hemoglobin 29.1 pg (26-34); Mean Corpuscular Volume 88.1 fl (80-100); Mean Platelet Volume 9.8 fl (7.4-10.4); Monocytes Absolute Auto 0.6 K/mm3 (0.1-0.6); Monocytes Percent Auto 7.3 % (2.6-8.5); Neutrophils Absolute Auto 3.6 K/mm3 (1.3-6.7); Neutrophils Percent Auto 44.4 % (45.5-73.1); Platelet Count Result 254 k/mm3 (150-375); Red Blood Count 4.44 M/mm3 (4.2-5.4); Red Cell Distribution Width 13.1 % (11.5-14.5); White Blood Count 8.1 K/mm3 (4.5-10.0)
[2024-07-23] MEDS: PANTOPRAZOLE SODIUM IV 40 MG VIAL IV PUSH (07:55)
--- NOTE | 2024-07-23 10:40 | PM.IMHP ---
H&P: HPI History of Present Illness Date/Time: 07/23/24 10:40 Chief Complaint: Cholecystitis Narrative: This is a 48-year-old woman who is being admitted in the setting of cholecystitis with cholelithiasis. She reports 2 days ago eating fried chicken wings for dinner and going to bed feeling in her usual state of health. She was out of town and had travel to [place] to meet her daughter to shrimp picker her daughter's dog and take him back home with her. She was staying in a hotel room that night. She had a sudden onset right-sided back pain around 2:00 a.m. that woke her up from sleep. Her pain radiated around the right lateral ribcage and up into her right scapula. She denied having any abdominal pain, but her pain persisted throughout the night. Yesterday morning, she left the hotel and started driving back to [place]. She was only 2-[address] drive and her pain began to radiate into her right neck and face, and radiated down her right arm. The pain became more severe and she was concerned she was having a heart attack. Therefore, she stopped in an emergency department in [place], [place]. She reports having an ultrasound that showed a large gallstone and she was evaluated by a surgeon who recommended taking her gallbladder out urgently. Since her dog was in her car with no one to help care for it, she signed out against medical advice to head back to [place]. She was able to drive back and dropped the dog off at home, and then presented to our ED for evaluation of her gallbladder. She reports that her pain remained constant and has not changed since yesterday. Labs in the ED were unremarkable with a normal white blood cell count and normal LFTs. CT scan of the abdomen and pelvis with IV contrast showed a large gallstone in the cystic duct with an otherwise decompressed gallbladder and minimal pericholecystic fluid. No gallbladder wall thickening. Also seen is hepatomegaly, unchanged from previous imaging. She was admitted for surgical evaluation in the setting of acute cholecystitis. She has been receiving IV morphine, which has provided good pain control. She was started on IV ceftriaxone and metronidazole due to a penicillin allergy in her EMR. When asked about the allergy, she reports that her siblings had an anaphylactic reaction to penicillin and it was recommended to her to avoid penicillins, although she has not had a reaction herself. She is now complaining of a headache that started this morning with nausea. No vomiting, fevers, or bowel changes. She reports a history of at least a partial vaginal hysterectomy, although she thought that it was a total hysterectomy, at the age of 26. A few days following surgery, she had appendicitis and subsequently had a laparoscopic appendectomy. Review of Systems Review of Systems: All systems reviewed & are unremarkable except as noted in HPI and below PMFSH Past Medical History Medical History Abnormal screening mammogram Kidney stone Lung nodule seen on imaging study Overweight with body mass index (BMI) of 28 to 28.9 in adult Right carpal tunnel syndrome Surgical History Surgical History History of appendectomy History of carpal tunnel surgery of left wrist open left carpal tunnel release December 17, 2022 History of carpal tunnel surgery of right wrist open carpal tunnel release January 14, 2023 History of laminectomy History of lobectomy of lung Hx of hysterectomy Wound dehiscence Right carpal tunnel incision Family History Family History Father No problems noted. Mother Dementia Sibling Diabetes mellitus Morbid obesity Other Carcinoma of colon Family history of malignant neoplasm of breast Social History Social History Smoking status: Never smoker Second hand tobacco smoke exposure: Yes Alcohol intake: never Substance use: never Substance use type: does not use Do You Feel Safe in your Home?: Yes Lack of Transportation: No Lack of Food: Never True Current Housing: I Have Housing Concerned About Future Housing: No Difficulty Paying Gas/Electric Bills: No Difficulty Paying for Meds: No Currently Unemployed: No Education: Bachelor's Degree Difficulty w/ Childcare or Family Care: No Living arrangements: alone Occupation/Education: occupation 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[employer] Gender identity (if verbalized by the patient): Female Spiritual care concerns: No Meds Home Medications and Allergies Home Medications Medication Instructions Recorded Confirmed Type No Home Medications 07/23/24 07/23/24 History Allergies Allergy/AdvReac Type Severity Reaction Status Date / Time Penicillins Allergy Unknown Unknown Verified 07/23/24 00:55 Vital Signs Vital Signs - 24 hr 07/22/24 20:01 07/23/24 00:52 07/23/24 01:00 Temperature 97.8 F Pulse Rate 96 74 74 Respiratory Rate 18 18 18 Blood Pressure 136/83 117/75 117/75 Pulse Oximetry 100 100 100 Oxygen Delivery Room Air Room Air 07/23/24 02:56 07/23/24 06:00 Temperature 97.6 F 98.0 F Pulse Rate 70 62 Respiratory Rate 18 16 Blood Pressure 120/75 100/60 Pulse Oximetry 100 99 Oxygen Delivery Exam Const: General: comfortable and no acute distress Nutritional Appearance: overweight Orientation/consciousness: patient oriented x3 HENMT: Head: normocephalic and atraumatic Ears: hearing grossly normal bilaterally Mouth: Yes moist mucous membranes Eyes: General: appearance normal, both eyes and all related structures Pupils: Equal, round and reactive pupils present Neck: Neck: normal visual inspection and full ROM Resp: Effort & Inspection: no respiratory distress Auscultation: clear to auscultation bilaterally Cardio: Rate: regular rate Rhythm: regular rhythm Heart sounds: S1 normal heart sound present and S2 normal heart sound present Peripheral pulses: Peripheral pulses 2+ throughout GI: Other: Abdomen is soft and nondistended. No large obvious scars or visible herniation. She has focal tenderness in the RUQ with involuntary guarding in the RUQ. No other areas of tenderness. No rebound tenderness. Normal bowel sounds. Skin: General skin exam: normal color Neuro: General: moves all extremities and no focal motor deficits Speech: normal speech Motor exam (neuro): 5/5 motor strength present throughout Extrem: General: normal to inspection and no edema Psych: Mental Status: mental status grossly normal Attitude: cooperative Insight: Good insight present (Psych) Judgement: Good judgement present (Psych) H&P: Results Labs Labs: Short CBC 07/22/24 07/23/24 Range/Units 21:06 07:03 WBC 8.3 8.1 (4.5-10.0) K/mm3 Hgb 14.4 12.9 (12.0-15.0) g/dL Hct 43.4 39.1 (37.0-47.0) % Plt Count 280 254 (150-375) k/mm3 [facility] 07/22/24 07/23/24 21:06 07:03 Sodium 138 135 L Potassium 4.0 4.1 Chloride 102 104 Carbon Dioxide 27 26 BUN 12 13 Creatinine 0.80 0.70 Glucose 114 H 92 Calcium 9.6 9.1 Liver Function 07/22/24 07/23/24 Range/Units 21:06 07:03 Total Bilirubin 0.4 0.6 (0.2-1.3) mg/dL AST 29 31 (14-36) U/L ALT 30 29 (6-35) U/L Alkaline Phosphatase 80 80 (38-126) U/L Albumin 4.2 3.9 (3.5-5.1) g/dL Urine 07/23/24 Range/Units 01:05 Urine Color Yellow (Yellow) Urine Appearance Clear (Clear) Urine pH 6.0 (5.0-9.0) Ur Specific [place] > 1.045 H (1.001-1.035) Urine Protein Negative (Negative) mg/dL Urine Glucose (UA) Negative (Negative) mg/dL Imaging CT scan - abdomen: My impression: ITS Impressions Abdomen/Pelvis CT 07/22/24 21:44 IMPRESSION: Decompressed gallbladder with a large lamellated stone. Pericholecystic fluid without gallbladder wall thickening. Hepatomegaly, unchanged. Assessment and Plan Assessment and plan (1) Acute cholecystitis: Code(s): K81.0 - Acute cholecystitis Status: Acute Assessment and Plan: The patient presents with right subscapular pain and CT findings of a large gallstone with minimal pericholecystic fluid in an otherwise decompressed gallbladder. LFTs and WBC count are normal. She continues to have persistent back pain, but still no abdominal pain. She is focally tender in the RUQ with guarding. Imaging and exam are consistent with cholecystitis, likely acute on chronic calculous cholecystitis. We discussed treatment options, including both nonoperative management verus proceeding with a laparoscopic cholecystectomy, possible open, that would be done by Dr. Casillas. Description of the procedure, risks, benefits, expected outcomes, and expected recovery were discussed with the patient in detail. We discussed the risks of bile leak and bile duct injury, liver/bowel injury, bleeding, and infection. Also discussed the possibility of having to convert to an open procedure if necessary. She wishes to proceed with surgery given her persistent pain. Continue IV antibiotics and I will keep her NPO with IV fluids today. She has been added onto the surgery schedule this afternoon. Will also give a dose of Tylenol now with a sip of water for her headache. (2) Obesity (BMI 30-39.9): Code(s): E66.9 - Obesity, unspecified Status: Acute Plan I have discussed the patient's case and plan of care with Dr. Casillas.
--- NOTE | 2024-07-23 11:38 | ECG_ITS ---
Test Date: 2024-07-23 11:51:23 Measurements Intervals [place] Rate: 53 P: 10 MN: 148 QRS: 21 QRSD: 82 T: 29 QT: 441 QTc: 415 Interpretive Statements SINUS BRADYCARDIA LOW QRS VOLTAGE IN PRECORDIAL LEADS MINIMAL Q WAVES- INFERIOR LEADS BASELINE ARTIFACT- V4-V5 BORDERLINE ECG No previous ECG available for comparison Electronically Signed On 07-23-2024 11:56:36 ONLINE MARKETING ANALYST by Randall Dillon D.O.
--- NOTE | 2024-07-23 14:23 | WPDANESEPPF ---
Anes - Initial Pre Proc Eval Procedure: Operation Date: 07/23/24 15:30 Proposed Procedures p Laparoscopic Cholecystectomy, Possible Open - Yunier Casillas MD Date/Time: 07/23/24 14:23 Surgeon: Yunier Casillas MD Pre Op Diagnosis: Acute cholecystitis Patient Data Age: 48 Gender: F Height: 1.63 m Weight: 98 kg Last Vital Signs Temp 36.7 C 07/23/24 06:00 Pulse 62 07/23/24 06:00 Resp 16 07/23/24 06:00 BP 100/60 07/23/24 06:00 Pulse Ox 99 07/23/24 06:00 O2 Del Method Room Air 07/23/24 01:00 Allergies Allergy/AdvReac Type Severity Reaction Status Date / Time Penicillins Allergy Unknown Unknown Verified 07/23/24 00:55 Home Medications Medication Instructions Recorded Confirmed Type No Home Medications 07/23/24 07/23/24 History Laboratory Tests 07/22/24 07/23/24 07/23/24 21:06 01:05 02:11 WBC 8.3 K/mm3 (4.5-10.0) RBC 4.99 M/mm3 (4.2-5.4) Hgb 14.4 g/dL (12.0-15.0) Hct 43.4 % (37.0-47.0) MCV 87.0 fl (80-100) MCH 28.9 pg (26-34) MCHC 33.2 g/dl (32-36) RDW 13.2 % (11.5-14.5) Plt Count 280 k/mm3 (150-375) MPV 9.5 fl (7.4-10.4) Immature Gran % (Auto) 0.5 % (0-0.5) Neut % (Auto) 49.2 % (45.5-73.1) Lymph % (Auto) 40.1 % (18.3-44.2) [place] % (Auto) 6.0 % (2.6-8.5) Eos % (Auto) 3.1 % (0-4.4) Baso % (Auto) 1.1 % (0.2-1.2) Lymph # (Auto) 3.32 H K/mm3 (0.9-3.2) [place] # (Auto) 0.5 K/mm3 (0.1-0.6) Eos # (Auto) 0.3 K/mm3 (0-0.3) Baso # (Auto) 0.1 K/mm3 (0.0-0.1) Abs Immat Gran (auto) 0.04 H K/mm3 (0.00-0.031) Absolute Neuts (auto) 4.1 K/mm3 (1.3-6.7) Absolute Nucleated RBC 0.000 K/mm3 (0.0-0.012) Nucleated RBC % 0.0 % (0.0-0.2) Sodium 138 mmol/L (137-145) Potassium 4.0 mmol/L (3.4-5.0) Chloride 102 mmol/L (98-107) Carbon Dioxide 27 mmol/L (22-30) Anion Gap 9 mmol/L (4-12) BUN 12 mg/dL (7-17) Creatinine 0.80 mg/dL (0.7-1.0) Estim Creat Clear Calc 87 ml/min Estimated GFR > 60 (59 - ) Glucose 114 H mg/dL (65-110) Calcium 9.6 mg/dL (8.4-10.2) Total Bilirubin 0.4 mg/dL (0.2-1.3) AST 29 U/L (14-36) ALT 30 U/L (6-35) Alkaline Phosphatase 80 U/L (38-126) Total Protein 8.0 g/dL (6.3-8.2) Albumin 4.2 g/dL (3.5-5.1) Lipase 111 U/L (23-300) Urine Color Yellow (Yellow) Urine Appearance Clear (Clear) Urine pH 6.0 (5.0-9.0) Ur Specific [place] > 1.045 H (1.001-1.035) Urine Protein Negative mg/dL (Negative) Urine Glucose (UA) Negative mg/dL (Negative) Urine Ketones Negative mg/dL (Negative) Ur Blood (Man) Negative (Negative) Urine Nitrate Negative (Negative) Urine Bilirubin Negative (Negative) Urine Urobilinogen 0.2 mg/dL (<2.0) Leukocyte Esterase Rfl Negative COOKIE/UL (Negative) Blood Type O Positive Antibody Screen Negative 07/23/24 07:03 WBC 8.1 K/mm3 (4.5-10.0) RBC 4.44 M/mm3 (4.2-5.4) Hgb 12.9 g/dL (12.0-15.0) Hct 39.1 % (37.0-47.0) MCV 88.1 fl (80-100) MCH 29.1 pg (26-34) MCHC 33.0 g/dl (32-36) RDW 13.1 % (11.5-14.5) Plt Count 254 k/mm3 (150-375) MPV 9.8 fl (7.4-10.4) Immature Gran % (Auto) 0.4 % (0-0.5) Neut % (Auto) 44.4 L % (45.5-73.1) Lymph % (Auto) 43.0 % (18.3-44.2) [place] % (Auto) 7.3 % (2.6-8.5) Eos % (Auto) 3.8 % (0-4.4) Baso % (Auto) 1.1 % (0.2-1.2) Lymph # (Auto) 3.47 H K/mm3 (0.9-3.2) [place] # (Auto) 0.6 K/mm3 (0.1-0.6) Eos # (Auto) 0.3 K/mm3 (0-0.3) Baso # (Auto) 0.1 K/mm3 (0.0-0.1) Abs Immat Gran (auto) 0.03 K/mm3 (0.00-0.031) Absolute Neuts (auto) 3.6 K/mm3 (1.3-6.7) Absolute Nucleated RBC 0.000 K/mm3 (0.0-0.012) Nucleated RBC % 0.0 % (0.0-0.2) Sodium 135 L mmol/L (137-145) Potassium 4.1 mmol/L (3.4-5.0) Chloride 104 mmol/L (98-107) Carbon Dioxide 26 mmol/L (22-30) Anion Gap 5 mmol/L (4-12) BUN 13 mg/dL (7-17) Creatinine 0.70 mg/dL (0.7-1.0) Estim Creat Clear Calc 98 ml/min Estimated GFR > 60 (59 - ) Glucose 92 mg/dL (65-110) Calcium 9.1 mg/dL (8.4-10.2) Total Bilirubin 0.6 mg/dL (0.2-1.3) AST 31 U/L (14-36) ALT 29 U/L (6-35) Alkaline Phosphatase 80 U/L (38-126) Total Protein 8.0 g/dL (6.3-8.2) Albumin 3.9 g/dL (3.5-5.1) Lipase Urine Color Urine Appearance Urine pH Ur Specific [place] Urine Protein Urine Glucose (UA) Urine Ketones Ur Blood (Man) Urine Nitrate Urine Bilirubin Urine Urobilinogen Leukocyte Esterase Rfl Blood Type Antibody Screen Patient hx anesthesia problems: none Family hx anesthesia problems: none Results Review: All pre-operative results and documents have been reviewed as part of the pre-operative evaluation. [facility] Past Medical History Medical History (Updated 07/23/24 @ 14:24 by Greyson Lazaro MD) Abnormal screening mammogram Kidney stone Right carpal tunnel syndrome Surgical History Surgical History (Updated 07/23/24 @ 14:24 by Greyson Lazaro MD) History of appendectomy History of carpal tunnel surgery of left wrist open left carpal tunnel release December 17, 2022 History of carpal tunnel surgery of right wrist open carpal tunnel release January 14, 2023 History of laminectomy History of lobectomy of lung wedge resection - fungus Hx of hysterectomy Wound dehiscence Right carpal tunnel incision Family History Family History Father No problems noted. Mother Dementia Sibling Diabetes mellitus Morbid obesity Other Carcinoma of colon Family history of malignant neoplasm of breast Social History Social History Smoking status: Never smoker Second hand tobacco smoke exposure: Yes Alcohol intake: never Substance use: never Substance use type: does not use Do You Feel Safe in your Home?: Yes Lack of Transportation: No Lack of Food: Never True Current Housing: I Have Housing Concerned About Future Housing: No Difficulty Paying Gas/Electric Bills: No Difficulty Paying for Meds: No Currently Unemployed: No Education: Bachelor's Degree Difficulty w/ Childcare or Family Care: No Living arrangements: alone Occupation/Education: occupation 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 Informed Consent: The patient's anesthetic plan and its attendant risks and benefits were discussed with the patient/family/POA. Questions were solicited and answers provided to the satisfaction of the patient/family/POA.
[2024-07-23] MEDS: LACTATED RINGERS 1,000 ML 30 ML IV CONT ×2 (14:25→16:40)
--- NOTE | 2024-07-23 14:51 | WPDHPUPDATE1 ---
History and Physical Update Update Date/Time: 07/23/24 14:51 History and Physical has been reviewed, including an updated exam of the patient. There are NO changes in the patient's condition. Risks, benefits, and alternatives have been discussed and questions answered. Patient agrees to proceed with procedure.
[2024-07-23] MEDS: LIDO 1%/EPINEPHRINE 1:100,000 50 ML VIAL 30 ML INFILTRATE (16:02)
[2024-07-23] MEDS: KETOROLAC 30 MG/ML VIAL (*BKC) IV PUSH (16:16)
--- NOTE | 2024-07-23 16:38 | W.PM.PROC2 ---
Procedure Note - Detailed Date of Procedure 07/23/24 Pre-op Diagnosis Acute on chronic cholecystitis secondary to cholelithiasis. Post-op Diagnosis Other (Chronic cholecystitis secondary to cholelithiasis.) Procedure Performed Laparoscopic cholecystectomy Surgeon Yunier Casillas MD Anesthesia General Indications Patient is a 48-year-old female was admitted to the hospital last evening complaining of severe right upper quadrant abdominal pain which radiated to her right scapula. The pain started when she was driving to visit her daughter in [place]. On her way back she was doing some much pain she stop that 1 of the emergency rooms in [facility]. And that emergency room she was diagnosed with acute cholecystitis. The patient signed herself out AMA from that emergency room and then continued in her car and returned to the local area. She then presented to the emergency room here at [facility] and a CT scan abdomen pelvis showed a gallbladder with a thickened gallbladder wall and some edema of the wall consistent with possible acute cholecystitis. Gallstones were noted on the previous imaging study. She appears to have possible acute on chronic cholecystitis secondary to cholelithiasis and presents now for a urgent laparoscopic cholecystectomy. Findings The gallbladder wall was thickened. However there was not a lot of acute inflammation. There were no adhesions of the duodenum, stomach, or omentum to the gallbladder wall. A single gallstone was palpated within the gallbladder. Description of Procedure After informed consent was obtained patient brought to the operating room she was placed supine position and general endotracheal anesthesia was administered. The abdomen was then prepped and draped usual sterile fashion. A time-out was then performed correctly identifying the patient as well as procedure to be performed verifying that she was already on scheduled IV antibiotics. I then entered the abdomen left upper quadrant utilizing a 5mm Optiview port. Once inside the abdomen I insufflated to adequate pneumoperitoneum of 15mmHg of CO2. I then placed additional trocar ports includes a 5mm periumbilical trocar port, a 10mm epigastric trocar port, in 2 more 5mm right subcostal trocar ports all under direct visualization. The gallbladder was visualized the right upper quadrant. It was mildly distended. Gallbladder wall was thickened. There were no adhesions of the gallbladder wall to the colon, duodenum, stomach, or omentum. I was able to hold the gallbladder at the dome and elevated the gallbladder over the right half liver towards right shoulder. A 2nd grasper used to hold the gallbladder at the infundibulum. I then proceeded to strip down the visceral peritoneum of the infundibular gallbladder to identify the cystic duct. The cystic duct was then dissected out circumferentially. Cystic artery identified and dissected out circumferentially as well. The posterior wall the gallbladder at the infundibulum dissected free liver into the critical view was obtained. At this point I then placed 2 clips proximally on the cystic duct and 2 clips distally high on the infundibulum of the gallbladder. I then divided the cystic duct with Endo Norah. In a similar fashion cystic artery clipped and divided as well. The gallbladder was then resected off the liver utilized electrocautery. No bile or gallstones were spilled during the resection the gallbladder off of the liver. Once the gallbladder was freed it was placed into Endo-Catch bag and brought out through the epigastric port site. The gallbladder the solitary gallstone within were sent to pathology for examination. I then irrigated out the right upper quadrant of the abdomen in the gallbladder fossa with copious amounts sterile saline solution. Hemostasis was good. There is no evidence of bile leak. I then aspirated the fluid from the right upper quadrant the abdomen from the pelvis. I then removed all the trocar ports under direct visualization all port sites appeared hemostatic. I then irrigated out the port sites sterile saline solution. Hemostasis was good. I then closed the 10mm epigastric trocar port fascial defect utilizing 0 Vicryl suture placed in a figure-eight fashion. The skin edges in all the port sites were then approximated utilizing a running subcuticular 4-0 Monocryl suture. Incisions were then cleaned and then skin glue was applied. The patient tolerated the procedure well no complications. All sponges, needles, and instrument counts were correct at the end procedure. EBL was _20__cc. The patient was awakened and taken to recovery in stable and satisfactory condition. Implants None Estimated Blood Loss 20 Drains No Packing No Pathology Yes (Gallbladder and gallstones sent to pathology) Complications No immediate complications Condition Stable Disposition PACU [facility] Billing Surgery - Charge Forward: Surgery Billing
[2024-07-23] MEDS: oxyCODONE HCL (*CRX) 5 MG TAB IR PO (20:25)
[2024-07-24] MEDS: oxyCODONE HCL (*CRX) 5 MG TAB IR PO ×3 (02:50→13:01)
[2024-07-24 06:00] VITALS: BP 122/62; PULSE 66; RESP 20; TEMP 36.1; O2SAT 98
[2024-07-24] MEDS: ACETAMINOPHEN 500 MG TABLET 1000 MG PO (06:44)
[2024-07-24] MEDS: PANTOPRAZOLE SODIUM IV 40 MG VIAL IV PUSH (07:30)
[2024-07-24] MEDS: SODIUM CHLORIDE 0.9% IV 1,000 ML 125 ML IV CONT (07:30)
[2024-07-24 08:00] VITALS: O2SAT 98
[2024-07-24 08:07] LABS: Estimated CRCL calculation 78 ml/min; Estimated Glomerular Filt Rate > 60
[2024-07-24 08:53] VITALS: O2SAT 97
--- NOTE | 2024-07-24 10:56 | P.DS_ITS ---
DS: Admitting Diagnosis Discharge Date July 24, 2024 Admitting Diagnosis Acute cholecystitis secondary to cholelithiasis DS: Discharge Diagnosis Discharge Diagnosis (1) Acute cholecystitis: Code(s): K81.0 - Acute cholecystitis Status: Acute (2) Cholelithiasis: Qualifiers: Cholelithiasis location: gallbladder Cholecystitis presence: without cholecystitis Code(s): K80.20 - Calculus of gallbladder without cholecystitis without obstruction Status: Acute DS: Summary Hospital Course Reason for hospitalization: Acute cholecystitis secondary to cholelithiasis Hospital Course: Patient was admitted to the hospital here through the emergency room. She was having right upper quadrant abdominal pain radiating to her right shoulder. White blood count is normal. Liver enzymes were normal. CT scan abdomen pelvis showed thickening of the gallbladder wall with small amount of pericholecystic fluid. She had known cholelithiasis from prior imaging and the CT scan showed a gallstone as well. She was started on IV antibiotics admitted to surgical floor. She did well on surgical floor and pain was well managed. Her abdominal exam reveals some tenderness in the right upper quadrant but no diffuse pe ritoneal signs. She was kept NPO and then taken to the operating room later in the afternoon on the day of admission. She underwent an uncomplicated laparoscopic cholecystectomy. In recovery per course uneventful and she was transferred back to the surgical floor for routine postoperative care. One a surgical floor she did very well. She tolerated clear liquids and then advance to low-fat food. No nausea vomiting. Pain was well controlled with nonnarcotic pain medication. Incisions were inspected and there are healing well without redness or drainage. His abdomen was having some mild tenderness around the port sites which was expected but her other right upper quadrant pain had resolved. She is discharged home in improved condition. Discharge and follow-up instructions are written. Status at Discharge Functional status at discharge: independent ambulation Overall status at discharge: patient is progressing back to baseline Time Spent with Patient Time attestation: Total time spent providing and/or coordinating discharge services: Time spent: Less than 30 minutes Exam GI: Other: Abdomen is soft and nondistended. Port site incisions are healing well. Incisions are intact without redness or drainage. Minimal ecchymosis around incisions is noted. No hematomas. DS: Data Data Completed and Pending Pending studies at discharge: Pending at discharge 07/23/24 15:51 Surgical [PTH] Routine Labs on day of discharge: Labs from last 24 hours 07/22/24 21:15 Creatinine 0.90 Estim Creat Clear Calc 78 Estimated GFR > 60 Discharge Plan Discharge Attending physician on discharge: Yunier Casillas Discharging Clinician: Yunier Casillas Anticipated Discharge Date/Time: 07/24/24 07:35 Patient Disposition: Home, Self-Care Activity: other - see discharge instructions Diet: regular Wound Care Instructions: other - see discharge instructions Discharge Instructions: May discharge home when stable. Follow up with Dr. Casillas in the office in 2 weeks. Patient to call [phone] for an appointment. May shower in 24hours but do not soak incisions under water for 2 weeks. No lifting more than 10 to 15 lb for 2 weeks. May advance diet as tolerated. No driving for at least 3 days or until no longer taking any narcotic pain medication. Resume all home medications. Prescription for narcotic pain medicines will be sent to the patient's pharmacy if needed. May use Tylenol and/or ibuprofen in addition to or in place of narcotic pain medications for postoperative pain. Patient Instructions: Antibiotic Form Stand Alone Forms: General Discharge Information Follow-up/Referrals: Yunier Casillas MD [Physician] - Discharge Medications: New hydrocodone-acetaminophen 5-325 mg tablet 1 - 2 tablet PO Q6H PRN (Reason: pain) Qty: 12 0RF Date of admission: 07/23/24 01:19 Primary Care Provider: Primitivo Rehman Admitting Provider: Yunier Casillas Attending physician on admission: Yunier Casillas Condition: Stable
[2024-07-24] MEDS: IBUPROFEN 400 MG TABLET PO (11:40)
== END 2024-07-24 13:59 | disposition home or self-care (01) ==
LOC: ANHED 07-23 01:33 → ANH3MEDSUR 07-23 02:19
PROVIDERS: Emergency Medicine; Admitting Provider Surgery; Emergency Provider Emergency Medicine; PCP Family Medicine; Visit Provider Surgery
PROC: 0FT44ZZ Resection of Gallbladder, Percutaneous Endoscopic Approach (ICD-10-PCS; CPT 47562; principal; 2024-07-23 15:30)
DX: K80.12 Calculus of gallbladder with acute and chronic cholecystitis without obstruction (principal); E66.9 Obesity, unspecified; Z68.37 Body mass index [BMI] 37.0-37.9, adult
CPT/HCPCS: 47562; 36415; 74177; 80053; 81003; 82565; 83690; 85025; 86850; 86900; 86901; 88304; 93005; 96361; 96365; 96374; 96375; 96376; 99285; A9270; G0378; G0379; J0330; J0696; J1100; J1836; J1885; J2003; J2004; J2250; J2270; J2405; J2470; J2704; J3010; J7030; J7120; Q9967

== ENCOUNTER 2025-07-11 10:16 | Emergency (ER) | payer OTHER, SELFPAY ==
--- NOTE | ~2025-07-11 | CT_ITS ---
CT HEAD NON-CONTRAST Clinical History: fall Comparison: 09/29/2023 Technique: Unenhanced axial images skull base to vertex Coronal, sagittal reformats CT images acquired with automatic exposure control for dose reduction DLP: 757 mGy-cm Findings: Sulci, ventricles: Unremarkable. No intracerebral hemorrhage. No evidence acute territorial infarct. No mass effect, midline shift. Bony calvarium intact. Visualized paranasal sinuses: Clear. Mastoid air cells: Clear. IMPRESSION: 1. No acute intracranial findings. Reviewed, dictated and finalized at location R. LE BLOWER
--- NOTE | ~2025-07-11 | XR_ITS ---
Examination: XR shoulder LT min 2V, XR wrist LT min 3V Clinical History: Fall Comparison: None Technique: 2 views left shoulder, 3 views left wrist Findings/impression: Left shoulder: 1. No fracture or dislocation. Left wrist: 1. Impacted comminuted fracture distal radius involving articular surface. 2. Tiny bone fragment above distal ulna. Reviewed, dictated and finalized at location R. SS ANALYST
--- NOTE | ~2025-07-11 | CT_ITS ---
EXAMINATION: CT cervical spine wo con DATE: 07/11/2025 11:30 INDICATION: Fall. TECHNIQUE: Computed tomography (CT) of the cervical spine was performed without intravenous contrast. Automated exposure control and iterative reconstruction technique were employed. The dose-length product was 383.81 mGy-cm. COMPARISON: CT cervical spine 12/24/2020 FINDINGS: There is kyphosis of cervical spine. Vertebral body heights are normal. There is mildly decreased disc height at C4-C5, C5-C6, and C6-C7. There is multilevel [id number] facet joint osteoarthritis. There is multilevel mild uncovertebral joint osteoarthritis. There is no neural foraminal stenosis. There is mild central canal stenosis at C5-C6 and C6-C7. IMPRESSION: 1. No fracture. 2. Mild cervical spondylosis. Reviewed, dictated and finalized at location E. ER STEAM YACHT
[2025-07-11 10:21] VITALS: BP 110/83; PULSE 96; RESP 20; TEMP 36.4; O2SAT 100
[2025-07-11 10:35] VITALS: BP 93/76; PULSE 69; RESP 18; O2SAT 98
--- NOTE | 2025-07-11 10:44 | ED.FALL ---
HPI - Fall General Chief Complaint: Fall Stated Complaint: Fall, hit head and left wrist pain Time Seen by Provider: 07/11/25 10:43 Source: patient Mode of arrival: ambulatory Limitations: no limitations History of Present Illness HPI Narrative: 49 years old white female was in a squatting position trying to tie her shoes lost balance and fell on a concrete floor, loss of consciousness, workup with frontal headache, left shoulder and left wrist pain. Patient drove herself to the emergency room. Lives alone. complaint: fall Related Data Allergies Allergy/AdvReac Type Severity Reaction Status Date / Time Penicillins Allergy Unknown Unknown Verified 07/11/25 10:39 Review of Systems Review of Systems: All systems reviewed & are unremarkable except as noted in HPI and below PMFSH Past Medical History Medical History Cough Chronic cough Pneumonia Hx of herpes zoster Family history of colon cancer Family history of colon cancer Screening for malignant neoplasm of vagina after total hysterectomy UTI (urinary tract infection) UTI (urinary tract infection) Hydronephrosis Calculus of distal right ureter Encounter for surgical aftercare following surgery on the digestive system Right upper quadrant abdominal pain Screening for malignant neoplasm of colon Acute cholecystitis Cholelithiasis Gallstones Gastroenteritis Acute sinusitis Obesity (BMI 30-39.9) Overweight with body mass index (BMI) of 28 to 28.9 in adult Weight loss, intentional Weight gain BMI 36.0-36.9,adult BMI over 35 BMI 34.0-34.9,adult Depression with anxiety Right carpal tunnel syndrome Abnormal screening mammogram Kidney stone Surgical History Surgical History History of hysterectomy H/O abdominal surgery Hx laparoscopic cholecystectomy 07/23/[address] 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 Mother Dementia Sibling Diabetes mellitus Morbid obesity Other Carcinoma of colon Family history of malignant neoplasm of breast Social History Social History Smoking status: Never smoker Second hand tobacco smoke exposure: Yes Alcohol intake: never Substance use: never Substance use type: does not use Do You Feel Safe in your Home?: Yes Lack of Transportation: No Lack of Food: Never True Current Housing: I Have Housing Concerned About Future Housing: No Difficulty Paying Gas/Electric Bills: No Difficulty Paying for Meds: No Currently Unemployed: No Education: Bachelor's Degree Difficulty w/ Childcare or Family Care: No Living arrangements: alone Occupation/Education: occupation 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/education 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 [employer] Gender identity (if verbalized by the patient): Female Spiritual care concerns: No Exam Narrative: General appearance: Well-developed, well-nourished Skin: Normal color Head: Normocephalic, nontraumatic, no signs of trauma, no localized tenderness or bruises or swelling Eyes: Clear conjunctiva ENT: Oropharynx normal, ears normal, nose normal Neck: Supple, nontender Chest and respiratory: Airway patent, no respiratory distress, no accessory muscle use Heart: Regular rate/rhythm Abdomen: Soft, nontender, no organomegaly, quiet bowel sounds Vascular: Normal peripheral pulses, normal capillary refill. Musculoskeletal: Left wrist deformity, severe limited range of motion, diffuse tenderness, diffuse tenderness left shoulder, no deformity Neurologic: Alert and oriented ?3, [employer] is normal as tested, no gross motor deficit Course Consultations Consultation #1: dr rey No close reduction Patient to call office in the morning for appointment Date: 07/11/25 Time: 12:31 Vital Signs Vital signs: Vital Signs Temperature 36.4 C 07/11/25 10:21 Pulse Rate 96 07/11/25 10:21 Respiratory Rate 20 07/11/25 10:21 Blood Pressure 110/83 07/11/25 10:21 Pulse Oximetry 100 07/11/25 10:21 Oxygen Delivery Room Air 07/11/25 10:21 Temperature 36.4 C 07/11/25 10:21 Pulse Rate 69 07/11/25 10:35 Respiratory Rate 18 07/11/25 10:35 Blood Pressure 93/76 L 07/11/25 10:35 Pulse Oximetry 98 07/11/25 10:35 Oxygen Delivery Room Air 07/11/25 10:35 MDM - Fall Imaging Data My impression: Impressions Head CT 07/11/25 11:32 IMPRESSION: 1. No acute intracranial findings. Cervical Spine CT 07/11/25 11:33 IMPRESSION: 1. No fracture. 2. Mild cervical spondylosis. Radiologist's impression: Impressions Head CT 07/11/25 11:32 IMPRESSION: 1. No acute intracranial findings. Cervical Spine CT 07/11/25 11:33 IMPRESSION: 1. No fracture. 2. Mild cervical spondylosis. Discharge Plan Discharge Clinical Impression: Fracture of left wrist Patient Disposition: Home Condition: Stable Additional Instructions: Return if symptoms are worsening , call DR REY for appointment, take IBUPROFEN 600 EVERY 6 HOURS as as needed for aches and pain, continue home medications. Patient Language: Tamazight Prescriptions: New hydrocodone-acetaminophen 5-325 mg tablet 1 tablet PO Q4H Qty: 20 0RF No Action fluoxetine 20 mg capsule 20 mg PO DAILY Qty: 90 1RF Follow-up/Referrals: Primitivo Rehman MD [Primary Care Provider, Family Practice] Abner Rey MD [Physician, Orthopedics] - 07/12/25
[2025-07-11] MEDS: ONDANSETRON INJ 4 MG/2 ML VIAL IV PUSH (11:19)
[2025-07-11] MEDS: HYDROmorphone HCL INJ (*CRX) 1 MG/ML SYR 0.5 MG IV PUSH (11:19)
[2025-07-11] MEDS: KETOROLAC 30 MG/ML VIAL (*BKC) IV PUSH (11:23)
[2025-07-11 12:58] VITALS: BP 112/80; PULSE 75; RESP 16; O2SAT 100
[2025-07-11] MEDS: ACETAMINOPHEN 500 MG TABLET 1000 MG PO (13:02)
== END 2025-07-11 13:22 | disposition home or self-care (01) ==
PROVIDERS: Emergency Provider Emergency Medicine; PCP Family Medicine
DX: S62.102A Fracture of unspecified carpal bone, left wrist, initial encounter for closed fracture (principal); W18.39XA Other fall on same level, initial encounter
CPT/HCPCS: 29125; 70450; 72125; 73030; 73110; 96374; 96375; 99284; A4565; A9270; J1171; J1885; J2405

== ENCOUNTER 2025-07-11 17:12 | Observation (INO) | payer OTHER, SELFPAY ==
--- NOTE | ~2025-07-11 | XR_ITS ---
EXAMINATION: XR elbow LT min 3V DATE: 07/12/2025 08:05 INDICATION: Posterior left elbow pain post fall TECHNIQUE: Anteroposterior, two oblique and lateral views of the left elbow were obtained. COMPARISON: None. FINDINGS: Alignment is normal. Increased angulation of the cortex at the proximal left radial head neck junction consistent with nondisplaced minimally impacted fracture. No evident intra-articular extension. No other fractures identified. Joint spaces are normal. Soft tissues are unremarkable. No elbow joint effusion. Fiberglas splinting material about the dorsal/ulnar aspect of the visualized proximal forearm. IMPRESSION: 1. Nondisplaced minimally impacted extra-articular fracture of the proximal left radial head neck junction Reviewed, dictated and finalized at location A. OLATE PRODUCTION MACHINE OPERATOR IMPRESSION: 1. Nondisplaced minimally impacted extra-articular fracture of the proximal lef t radial head neck junction
[2025-07-11 17:26] VITALS: BP 109/72; PULSE 98; RESP 16; TEMP 36.6; O2SAT 99
--- NOTE | 2025-07-11 18:49 | ED.GENADULT ---
HPI - General Adult General Chief complaint: Recheck/Abnormal Lab/Rx Stated complaint: broken wrist, seen earlier, unbearable pain Time Seen by Provider: 07/11/25 18:45 Source: patient Mode of arrival: ambulatory Limitations: no limitations History of Present Illness HPI narrative: 49 YEARS OLD WHITE FEMALE WAS SEEN BY ME EARLY TODAY AND WAS DISCHARGED HOME WITH LEFT WRIST FRACTURE. PATIENT WAS DISCHARGED ON IBUPROFEN AND NORCO, RECEIVED 6 SPLINT AND SLING PRIOR TO DISCHARGE. PATIENT LIVES ALONE. IN THE WAY BACK HOME PATIENT STARTED HAVING VOMITING AND DIARRHEA. SHE IS TELLING ME AT LEAST 3 EPISODES OF VOMITING AND 8 EPISODES WATERY DIARRHEA. PATIENT UNABLE TO WRIST AND KEEP HER LEFT ARM ELEVATED AND COULD NOT KEEP THE MEDICATION DOWN. SHE DENIES ANY FEVER OR CHILLS OR ABDOMINAL PAIN OR CHEST PAIN OR BACK PAIN OR HEADACHE. PATIENT DENIES TINGLING OR NUMBNESS OF THE FINGERS JUST INTERMITTENT SHARP STABBING PAIN AT THE SITE OF FRACTURE Related Data Allergies Allergy/AdvReac Type Severity Reaction Status Date / Time Penicillins Allergy Unknown Unknown Verified 07/11/25 10:39 Review of Systems Review of Systems: All systems reviewed & are unremarkable except as noted in HPI and below PMFSH Past Medical History Medical History Cough Chronic cough Pneumonia Hx of herpes zoster Family history of colon cancer Family history of colon cancer Screening for malignant neoplasm of vagina after total hysterectomy UTI (urinary tract infection) UTI (urinary tract infection) Hydronephrosis Calculus of distal right ureter Encounter for surgical aftercare following surgery on the digestive system Right upper quadrant abdominal pain Screening for malignant neoplasm of colon Acute cholecystitis Cholelithiasis Gallstones Gastroenteritis Acute sinusitis Obesity (BMI 30-39.9) Overweight with body mass index (BMI) of 28 to 28.9 in adult Weight loss, intentional Weight gain BMI 36.0-36.9,adult BMI over 35 BMI 34.0-34.9,adult Depression with anxiety Right carpal tunnel syndrome Abnormal screening mammogram Kidney stone Surgical History Surgical History History of hysterectomy H/O abdominal surgery Hx laparoscopic cholecystectomy 07/23/[address] 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 Mother Dementia Sibling Diabetes mellitus Morbid obesity Other Carcinoma of colon Family history of malignant neoplasm of breast Social History Social History Smoking status: Never smoker Second hand tobacco smoke exposure: Yes Alcohol intake: never Substance use: never Substance use type: does not use Do You Feel Safe in your Home?: Yes Lack of Transportation: No Lack of Food: Never True Current Housing: I Have Housing Concerned About Future Housing: No Difficulty Paying Gas/Electric Bills: No Difficulty Paying for Meds: No Currently Unemployed: No Education: Bachelor's Degree Difficulty w/ Childcare or Family Care: No Living arrangements: alone Occupation/Education: occupation 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/education comments: 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 - [email or web address] 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 [employer] Gender identity (if verbalized by the patient): Female Spiritual care concerns: No Exam Narrative: GENERAL APPEARANCE: WELL-DEVELOPED, WELL-NOURISHED, PATIENT LOOKS COMFORTABLE NOT IN PAIN OR DISTRESS SURGEON HER SMART PHONE SKIN: NORMAL COLOR HEAD: NORMOCEPHALIC, NONTRAUMATIC EYES: CLEAR CONJUNCTIVA ENT: OROPHARYNX NORMAL, EARS NORMAL, NOSE NORMAL NECK: SUPPLE, NONTENDER CHEST AND RESPIRATORY: AIRWAY PATENT, NO RESPIRATORY DISTRESS, NO ACCESSORY MUSCLE USE HEART: REGULAR RATE/RHYTHM ABDOMEN: SOFT, NONTENDER, NO ORGANOMEGALY, QUIET BOWEL SOUNDS VASCULAR: NORMAL PERIPHERAL PULSES, NORMAL CAPILLARY REFILL. MUSCULOSKELETAL: LEFT WRIST SPLINT REMOVED, LEFT WRIST DEFORMITY, DIFFUSE TENDERNESS, SEVERE LIMITED RANGE OF MOTION PATIENT ABLE TO MOVE ALL FINGERS WITHOUT LIMITATION, PALPABLE RADIAL PULSE, GOOD SENSATION NEUROLOGIC: ALERT AND ORIENTED ?3, C ARCHITECT IS NORMAL TESTED, NO GROSS MOTOR DEFICIT Course Consultations Consultation #1: DR REY ADMIT TO HOSPITALIST Date: 07/11/25 Time: 19:12 Vital Signs Vital signs: Vital Signs Temperature 36.6 C 07/11/25 17:26 Pulse Rate 98 07/11/25 17:26 Respiratory Rate 16 07/11/25 17:26 Blood Pressure 109/72 07/11/25 17:26 Pulse Oximetry 99 07/11/25 17:26 Oxygen Delivery Room Air 07/11/25 17:26 Temperature 36.6 C 07/11/25 17:26 Pulse Rate 98 07/11/25 17:26 Respiratory Rate 16 07/11/25 17:26 Blood Pressure 109/72 07/11/25 17:26 Pulse Oximetry 99 07/11/25 17:26 Oxygen Delivery Room Air 07/11/25 17:26 Medical Decision Making MDM Narrative Medical decision making narrative: PATIENT COULD NOT GET RESTED AT HOME, LIVES ALONE, DEVELOPED NAUSEA, VOMITING AND DIARRHEA AFTER LEAVING OUR 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 THE PLAN TO LOOSEN THE SPLINT, TO KEEP HAND ELEVATED ABOVE THE LEVEL OF HER HEART, ADMIT PATIENT FOR PAIN MANAGEMENT AND IV FLUID. IN THE ED PATIENT RECEIVED NORMAL SALINE, DILAUDID, TORADOL AND ZOFRAN ADMIT TO HOSPITALIST, DISCUSSED WITH DR. Rey Differential Diagnosis Differential Diagnosis: Electrolyte imbalance, dehydration, viral gastroenteritis, left wrist fracture Vital Signs Vital Signs: Vital Signs Temperature 36.6 C 07/11/25 17:26 Pulse Rate 98 07/11/25 17:26 Respiratory Rate 16 07/11/25 17:26 Blood Pressure 109/72 07/11/25 17:26 Pulse Oximetry 99 07/11/25 17:26 Oxygen Delivery Room Air 07/11/25 17:26 Temperature 36.6 C 07/11/25 17:26 Pulse Rate 98 07/11/25 17:26 Respiratory Rate 16 07/11/25 17:26 Blood Pressure 109/72 07/11/25 17:26 Pulse Oximetry 99 07/11/25 17:26 Oxygen Delivery Room Air 07/11/25 17:26 Critical Care Time Critical Care Time Critical Care Time: No Discharge Plan Discharge Clinical Impression: Fracture of left wrist, Gastroenteritis Patient Disposition: Still a Patient Condition: Stable Additional Instructions: Admit to hospitalist Patient Language: Hungarian Prescriptions: No Action fluoxetine 20 mg capsule 20 mg PO DAILY Qty: 90 1RF hydrocodone-acetaminophen 5-325 mg tablet 1 tablet PO Q4H Qty: 20 0RF Follow-up/Referrals: Primitivo Rehman MD [Primary Care Provider, [facility]]
--- OUTSIDE RECORDS SUMMARY | 2025-07-11 18:56 | XMS_ITS | Clinical Summary ---
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 Name Role Phone Unavailable Primary Care Provider Unavailabl e Social History Tobacco Use Types Packs/Day Years Used Date Smoking Tobacco: Never Assessed Comments Unknown Sex and Gender Information Value Date Recorded Sex Assigned at Not on file Legal Sex Female 5:31 PM CDT Gender Identity Not on file Sexual Orientation Not on file Plan of Treatment Health Maintenance Due Date Last Done Comments Cervical Cancer Screening Pa p Smear (Age 30 to 64) Every 3 Years 1977 Colorectal Cancer Screening Colonoscopy (10 Years) 1977 Annual Physical 1980 Hepatitis C 1995 DTaP, Tdap and Td Vaccines ( 1 - Tdap) 1996 Hepatitis B Vaccines (1 of 3 - 19+ 3-dose series) 1996 Cervical Cancer Screening Pa p with HPV Testing (Age 30 to 64) Every 5 Years 2007 Cervical Cancer Screening with HPV 2007 Mammogram Screening 2017 COVID-19 Vaccine (2024-2 6 season) 2025 Influenza Adult (#1) 2025 Hepatitis A Vaccines Aged Out No long er eligible based on patient's age to complete this topic Meningococcal B Vaccine Aged Out No l onger eligible based on patient's age to complete this topic Meningococcal Vaccine Aged Out No moustapha conchis eligible based on patient's age to complete this topic Pneumococcal Vaccine: Pediat rics (0 to 5 Years) and At-Risk Patients (6 to 49 Years) Aged Out No longer eligible b ased on patient's age to complete this topic RSV Immunizations Under 20 Months Aged Out No longer eligible based on patient's age to complete this topic
--- OUTSIDE RECORDS SUMMARY | 2025-07-11 18:57 | XMS_ITS | Clinical Summary ---
Author Organization [facility] Address [address] [place] [address] Care Team Providers Care Acid Regenerator Name Role Phone Primitivo Rehman MD Primary Care Provider + [phone] Allergies Active Allergy Reactions Criticality Noted Date Comments Penicillins Other (See comments) Low PT states they have never had penicillins, but siblings have allergies. Medications acetaminophen 500 mg capsuleIndicati ons:Pain Take 2 capsules (1,000 mg total) by mouth every 6 (six) hours 30 tablet 03/14/2022 Active celecoxib (CeleBREX) 100 mg capsule Take 1 capsule (100 mg total) by mouth daily for 14 days 14 capsule 03/15/2022 Active cyclobenzaprine (FLEXERIL) 5 mg tablet Take 1 tablet (5 mg total) by mouth 3 (three) times a day for 7 days 30 tablet 03/14/2022 Active gabapentin (NEURONTIN) 100 mg capsule Take 1 capsule (100 mg total) by mouth 3 (three) times a day for 7 days 21 capsule 03/14/2022 Active lidocaine (LIDODERM) 5 % Place 1 patch on the skin daily for 7 days Remove & discard patch within 12 hours or as directed by MD. 7 patch 03/15/2022 Active oxyCODONE (ROXICODONE) 5 mg immediate release tabletIndicatio ns:Pain Take 1 tablet (5 mg total) by mouth every 4 (four) hours as needed for pain 30 tablet 03/16/2022 Active sulfamethoxazol e-trimethoprim (BACTRIM DS) 800-160 mg per tablet Take 1 tablet by mouth every 12 (twelve) hours for 7 days 03/25/2022 Active Active Problems Problem Noted Date Diagnosed Date Lung nodules 03/13/2022 Assessment & Plan (03/13/2022 1:30 PM CDT): S/P left VATS - chest tube to WS - pain control - very sleepy but arouses easily - IVF - ADAT Plan to observe CT overnight and if no air leak in AM possibly D/C CT in AM [place] 10/27/2021 Pulmonary nodule, left 10/26/2021 Surgical History Surgery Date Site/Laterality Comments APPENDECTOMY HYSTERECTOMY LAMINECTOMY Medical History Medical History Date Comments Bronchitis Pneumonia Pulmonary nodule Cholelithiasis Renal calculi Family History Medical History Relation Name Comments smoker Father Dementia Mother Relation Name Status Comments Father Mother Social History Tobacco Use Types Packs/Day Years Used Date Smoking Tobacco: Never Smokeless Tobacco: Never AUDIT-C Answer Date Recorded Q1: How often do you have a drink containing alcohol? Never 03/06/2022 Q2: How many drinks containi ng alcohol do you have on a typical day when you are drinking? 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 Not on file Not on file Last Filed Vital Signs Vital Sign Reading Time Taken Comments Blood Pressure 110/72 03/28/2022 1:50 PM CDT Pulse 121 03/28/2022 1:50 PM CDT Temperature 36.4 C (97.5 F) 03/28/2022 1:50 PM CDT Respiratory Rate 12 03/14/2022 11:00 AM CDT Oxygen Saturation 97% 03/28/2022 1:50 PM CDT Inhaled Oxygen Concentration - - Weight 78.5 kg (173 lb) 03/28/2022 1:50 PM CDT Height 162.6 cm (5' 4) 03/28/2022 1:50 PM CDT Body Mass Index 29.7 03/28/2022 1:50 PM CDT Plan of Treatment Not on file Procedures Procedure Name Priority Date/Time Associated Diagnosis Comments DIAGNOSTIC MAMMOGRAM BILATERAL W RYAN Routine 10/24/2016 12:25 PM WORD PROCESSOR from Last 3 Months or Most Recently Relevant to Health Maintenance Results * Diagnostic Mammogram Bilateral W Ryan (10/24/2016 12:25 PM WORD PROCESSOR) Anatomical Region Laterality Modality Breast Bilateral Mammography 10/24/2016 12:2 5 PM WORD PROCESSOR Narrative 10/26/2016 12:57 PM WORD PROCESSOR DENISE MALDONADO M.D. FINAL REPORT ACC# Date Time Exam [id number] Oct 24, 2016 12:25:00 [facility] [id number] Dig Breast Ryan Mauricio Technologist(s): Estela Nguyen; ; [id number] Oct 24, 2016 12:25:00 [facility] [id number] Diag Mamm, inc CAD, bilat Technologist(s): Estela Nguyen; ; [id number] Oct 24, 2016 12:45:00 [facility] [id number] Breast US unilateral, ltd L EXAMINATION: BILATERAL FULL FIELD DIGITAL DIAGNOSTIC MAMMOGRAM WITH CAD AND LEFT BREAST SONOGRAM HISTORY: 41-year-old woman with a palpable area concern in the left breast 12 o'clock position. She describes a pea-sized intermittently tender mobile mass. MAMMOGRAM TECHNIQUE: Full field digital craniocaudal and mediolateral oblique views were obtained. Computer Aided Detection was performed. COMPARISON: None available at the time of dictation. BREAST PARENCHYMAL COMPOSITION: There are scattered areas of fibroglandular density. MAMMOGRAM FINDINGS: There is no suspicious finding in RIGHT breast. The palpable area concern is denoted with a triangular marker in the left breast 11 to 12 o'clock position, approximately 3 cm from the nipple. There is no mammographic correlate for the palpable area concern, including on a magnification tangent view in the area of concern as indicated by the patient. SONOGRAM FINDINGS: The patient was personally imaged and examined by Dr. Maldonado. In the patient he the palpable area concern at the 12 o'clock position abruptly 4 cm from the nipple. On clinical examination there is no suspicious mass. Directed ultrasound in the area of clinical concern reveals normal tissue. There is a band of glandular tissue containing a 2 mm cyst, incidentally. There is no suspicious finding. IMPRESSION: 1. The palpable area concern corresponds with normal tissue. There is no suspicious finding in either breast. 2. Annual screening mammography is recommended. 3. Prior films have been requested. An addendum will be issued when comparison studies available. OVERALL FINAL ASSESSMENT: BI-RADS Category 0: Incomplete: Need comparison with previous examinations ADDENDUM Addendum issued 10/26/2016 at 12:[address] Denise Maldonado. Previous mammogram examination dated 10/15/2012 was submitted for comparison. There has been no interval change in either breast. There is no suspicious finding in either breast. Annual screening mammography is recommended. Overall final assessment: BI-RADS Category 1: Negative. Requested By: Angie Guzman M.D. Dictated By: DENISE MALDONADO M.D. on Oct 24 2016 1:19P This document has been electronically signed by: DENISE MALDONADO M.D. on Oct 24 2016 1:19P Addendum Dictated by: DENISE MALDONADO M.D. on Oct 26 2016 12:57P This Addendum has been electronically signed by: DENISE MALDONADO M.D. on Oct 26 2016 12:57P [id number] Procedure Note Provider, MD To - 01/15/2017 DENISE MALDONADO M.D. FINAL REPORT ACC# Date Time Exam [id number] Oct 24, 2016 12:25:00 [facility] [id number] Dig Breast Ryan Mauricio Technologist(s): Estela Nguyen; ; [id number] Oct 24, 2016 12:25:00 [facility] [id number] Diag Mamm, inc CAD, bilat Technologist(s): Estela Nguyen; ; [id number] Oct 24, 2016 12:45:00 [facility] [id number] Breast US unilateral, ltd L EXAMINATION: BILATERAL FULL FIELD DIGITAL DIAGNOSTIC MAMMOGRAM WITH CAD AND LEFT BREAST SONOGRAM HISTORY: 41-year-old woman with a palpable area concern in the left breast 12 o'clock position. She describes a pea-sized intermittently tender mobile mass. MAMMOGRAM TECHNIQUE: Full field digital craniocaudal and mediolateral oblique views were obtained. Computer Aided Detection was performed. COMPARISON: None available at the time of dictation. BREAST PARENCHYMAL COMPOSITION: There are scattered areas of fibroglandular density. MAMMOGRAM FINDINGS: There is no suspicious finding in RIGHT breast. The palpable area concern is denoted with a triangular marker in the left breast 11 to 12 o'clock position, approximately 3 cm from the nipple. There is no mammographic correlate for the palpable area concern, including on a magnification tangent view in the area of concern as indicated by the patient. SONOGRAM FINDINGS: The patient was personally imaged and examined by Dr. Maldonado. In the patient he the palpable area concern at the 12 o'clock position abruptly 4 cm from the nipple. On clinical examination there is no suspicious mass. Directed ultrasound in the area of clinical concern reveals normal tissue. There is a band of glandular tissue containing a 2 mm cyst, incidentally. There is no suspicious finding. IMPRESSION: 1. The palpable area concern corresponds with normal tissue. There is no suspicious finding in either breast. 2. Annual screening mammography is recommended. 3. Prior films have been requested. An addendum will be issued when comparison studies available. OVERALL FINAL ASSESSMENT: BI-RADS Category 0: Incomplete: Need comparison with previous examinations ADDENDUM Addendum issued 10/26/2016 at 12:[address] Denies Maldonado. Previous mammogram examination dated 10/15/2012 was submitted for comparison. There has been no interval change in either breast. There is no suspicious finding in either breast. Annual screening mammography is recommended. Overall final assessment: BI-RADS Category 1: Negative. Requested By: Angie Guzman M.D. Dictated By: DENISE MALDONADO M.D. on Oct 24 2016 1:19P This document has been electronically signed by: DENISE MALDONADO M.D. on Oct 24 2016 1:19P Addendum Dictated by: DENISE MALDONADO M.D. on Oct 26 2016 12:57P This Addendum has been electronically signed by: DENISE MALDONADO M.D. on Oct 26 2016 12:57P [id number] us Historical Provider MD LIM MAMMO PROCEDURES Jenni l Result from Last 3 Months or Most Recently Relevant to Health Maintenance Insurance [facility] PL[facility] Advance Directives For more information, please contact: [phone] * Full Code (Latest Code Status on File) Date Activated Date Inactivated Comments 03/13/2022 1:11 PM 03/14/2022 7:52 PM Care Teams Acid Regenerator Relationship Specialty Start Date End Date Primitivo Rehman MD PCP - General Family Medicine 12/25/20
[2025-07-11] MEDS: KETOROLAC 30 MG/ML VIAL (*BKC) IV PUSH (19:06)
[2025-07-11] MEDS: ONDANSETRON INJ 4 MG/2 ML VIAL IV PUSH ×2 (19:06→23:17)
[2025-07-11] MEDS: HYDROmorphone HCL INJ (*CRX) 1 MG/ML SYR 0.5 MG IV PUSH ×2 (19:09→23:09)
[2025-07-11 19:18] LABS: Hematocrit 41.5 % (37.0-47.0); Hemoglobin 13.6 g/dL (12.0-15.0); Immature Granulocyte Percent A 0.4 % (0-0.5); Lymphocytes Absolute Auto 2.34 K/mm3 (0.9-3.2); Mean Corpuscular HGB Conc 32.8 g/dl (32-36); Mean Corpuscular Hemoglobin 28.6 pg (26-34); Mean Corpuscular Volume 87.2 fl (80-100); Nucleated Red Blood Cells Absolute Auto 0.000 K/mm3 (0.0-0.012); Nucleated Red Blood Cells Perc 0.0 % (0.0-0.2); Platelet Count Result 283 k/mm3 (150-375); Red Blood Count 4.76 M/mm3 (4.2-5.4); White Blood Count 9.8 K/mm3 (4.5-10.0)
[2025-07-11] MEDS: SODIUM CHLORIDE 0.9% IV 1,000 ML 999 ML IV CONT (19:43)
[2025-07-11] MEDS: LOPERAMIDE HCL 2 MG CAPSULE 4 MG PO (19:43)
[2025-07-11 19:55] LABS: Influenza A QL RT-PCR Negative (Negative); Influenza B QL RT-PCR Negative (Negative); RSV RNA, RT-PCR Negative (Negative); SARS-CoV-2 RNA PCR Negative (Negative)
[2025-07-11 21:06] LABS: Alanine Aminotransferase 30 U/L (6-35); Albumin Level 3.8 g/dL (3.5-5.1); Alkaline Phosphatase 97 U/L (38-126); Anion Gap 7 mmol/L (4-12); Aspartate Amino Transferase 29 U/L (14-36); Bilirubin,Total 0.6 mg/dL (0.2-1.3); Blood Urea Nitrogen 20 mg/dL (7-17); Calcium 8.0 mg/dL (8.4-10.2); Carbon Dioxide 26 mmol/L (22-30); Chloride 107 mmol/L (98-107); Estimated CRCL calculation 84 ml/min; Estimated Glomerular Filt Rate > 60; Glucose 90 mg/dL (65-110); Potassium 3.6 mmol/L (3.4-5.0); Sodium 140 mmol/L (137-145); Total Protein 7.2 g/dL (6.3-8.2)
[2025-07-11 21:16] VITALS: BMI 37.8
--- NOTE | 2025-07-11 21:16 | ADMGEN ---
This patient, December, was admitted to [facility] Surg Room 309-01. Patient/family oriented to hospital policies and general routines including ID bracelet, bed and alarms, visiting hours, pain management, procedures, bathroom and other care routines, personal items, smoking policy, room service/diet, and visiting hours. Information on how to activate the Rapid Response Team has been discussed. Patient/Family are encouraged to report perceived risks to care and to ask questions if they do not understand what they are told or what they should do.
[2025-07-11 21:27] VITALS: BP 103/70; PULSE 74; RESP 17; TEMP 36.3; O2SAT 100
[2025-07-11] MEDS: SODIUM CHLORIDE 0.9% IV 1,000 ML 150 ML IV CONT (21:54)
--- NOTE | 2025-07-11 22:46 | P.HP_ITS ---
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 Patient was in her garage and slipped on a mat and fell onto her left side, reports pain all over her left arm. Head CT demonstrates no acute findings, cervical CT without contrast with mild cervical spondylosis, left shoulder two view, left wrist three view demonstrates impacted comminuted fracture of distal radius involving articular surface, tiny bone fragment above distal ulna, no shoulder fracture or dislocation. Orthopedic surgery consulted, patient discharged on [place] and Aleve. After taking Aleve and [place] the patient had nausea and vomiting, stomach cramping, loose watery diarrhea. Her pain was intractable so she return to the ER. Pain was 10/10, Dilaudid helped it a little bit. Also received Toradol. Received 1 L normal saline bolus and placed on continuous infusion. Orthopedic surgery again contacted. Review of Systems Review of Systems: All systems reviewed & are unremarkable except as noted in HPI and below (Subjective) PMFSH Past Medical History Medical History Cough Chronic cough Pneumonia Hx of herpes zoster Family history of colon cancer Family history of colon cancer Screening for malignant neoplasm of vagina after total hysterectomy UTI (urinary tract infection) UTI (urinary tract infection) Hydronephrosis Calculus of distal right ureter Encounter for surgical aftercare following surgery on the digestive system Right upper quadrant abdominal pain Screening for malignant neoplasm of colon Acute cholecystitis Cholelithiasis Gallstones Gastroenteritis Acute sinusitis Obesity (BMI 30-39.9) Overweight with body mass index (BMI) of 28 to 28.9 in adult Weight loss, intentional Weight gain BMI 36.0-36.9,adult BMI over 35 BMI 34.0-34.9,adult Depression with anxiety Right carpal tunnel syndrome Abnormal screening mammogram Kidney stone Surgical History Surgical History History of hysterectomy H/O abdominal surgery Hx laparoscopic cholecystectomy 11/14/[address] 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 Mother Dementia Sibling Diabetes mellitus Morbid obesity Other Carcinoma of colon Family history of malignant neoplasm of breast Social History Social History Smoking status: Never smoker Second hand tobacco smoke exposure: Yes Alcohol intake: never Substance use: never Substance use type: does not use Do You Feel Safe in your Home?: Yes Lack of Transportation: No Lack of Food: Never True Current Housing: I Have Housing Concerned About Future Housing: No Difficulty Paying Gas/Electric Bills: No Difficulty Paying for Meds: No Currently Unemployed: No Education: Bachelor's Degree Difficulty w/ Childcare or Family Care: No Living arrangements: alone Occupation/Education: occupation 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/education comments: 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 [employer] Gender identity (if verbalized by the patient): Female Spiritual care concerns: No Meds Home Medications and Allergies Home Medications ?Medication ?Instructions ?Recorded ?Confirmed ?Type fluoxetine 20 mg capsule 20 mg PO DAILY #90 caps 12/0107/11/25 Rx Allergies Allergy/AdvReac Type Severity Reaction Status Date / Time Penicillins Allergy Unknown Unknown Verified 07/11/25 21:31 Vital Signs Vital Signs - 24 hr 07/11/25 17:26 07/11/25 21:27 Temperature 97.8 F 97.3 F L Pulse Rate 98 74 Respiratory Rate 16 17 Blood Pressure 109/72 103/70 Pulse Oximetry 99 100 Oxygen Delivery Room Air Exam Const: General: comfortable and no acute distress Other: A&O x4 HENMT: Mouth: Yes moist mucous membranes Eyes: Pupils: Equal, round and reactive pupils present Neck: Neck: supple Resp: Effort & Inspection: normal respiratory effort Auscultation: clear to auscultation bilaterally Cardio: Rate: regular rate Rhythm: regular rhythm Heart sounds: no murmurs GI: Inspection: non-distended GI Palp: Yes Soft to palpation : General: Yes bladder normal to palpation Neuro: Motor exam (neuro): 5/5 motor strength present throughout Other: Neurovascular exam intact. Extrem: General: no edema H&P: Results Labs Labs: Short CBC 07/11/25 Range/Units 19:09 WBC 9.8 (4.5-10.0) K/mm3 Hgb 13.6 (12.0-15.0) g/dL Hct 41.5 (37.0-47.0) % Plt Count 283 (150-375) k/mm3 BMP 07/11/25 20:27 Sodium 140 Potassium 3.6 Chloride 107 Carbon Dioxide 26 BUN 20 H Creatinine 0.83 Glucose 90 Calcium 8.0 L Liver Function 07/11/25 Range/Units 20:27 Total Bilirubin 0.6 (0.2-1.3) mg/dL AST 29 (14-36) U/L ALT 30 (6-35) U/L Alkaline Phosphatase 97 (38-126) U/L Albumin 3.8 (3.5-5.1) g/dL Assessment and Plan Assessment and plan (1) Fracture of left wrist: Code(s): S62.102A - Fracture of unspecified carpal bone, left wrist, initial encounter for closed fracture Status: Acute Plan 49-year-old female with history class 2 obesity, depression and anxiety related to previous of father, not currently on pharmacological management, history of UTI, history of nephrolithiasis, self-reported left lobectomy of lung due to fungus presents to [facility] ER on 07/11/2025 after a fall. Patient was in her garage and slipped on a mat and fell onto her left side, reports pain all over her left arm. Head CT demonstrates no acute findings, cervical CT without contrast with mild cervical spondylosis, left shoulder two view, left wrist three view demonstrates impacted comminuted fracture of distal radius involving articular surface, tiny bone fragment above distal ulna, no shoulder fracture or dislocation. Orthopedic surgery consulted, patient discharged on [place] and Aleve. After taking Aleve and [place] the patient had nausea and vomiting, stomach cramping, loose watery diarrhea. Her pain was intractable so she return to the ER. Pain was 10/10, Dilaudid helped it a little bit. Also received Toradol. Received 1 L normal saline bolus and placed on continuous infusion. Orthopedic surgery again contacted. I reviewed the shoulder and wrist x-rays. Reviewed CT brain. ----- Decrease fluids to 100 cc/hour. Patient reports Dilaudid only takes her pain from a 10 to an 8. Will increase frequency from q.4 hours to q.3 hours. Avoid p.o. for now. It appears the Aleve and [place] she does caused on wanted nausea vomiting, stomach cramping and diarrhea. That has resolved now after removal of those offending agents. Patient denies fever. Afebrile here. NPO midnight. SCDs. DVT prophylaxis deferred to Orthopedic surgery. Patient feels as if her left elbow is also broken, will obtain x-rays. Discussed medication side effects with the patient. She has no lung conditions. She is breathing well on room air. ----- Patient wishes to be full code. Hospitalist MIPS Advance Care Plan I have confirmed that the patient's Advanced Care Plan is present, code status is documented, or surrogate decision maker is listed in patient medical record.: Yes Medication Reconciliation I have utilized all available resources to obtain, update and review the patients current medications (includes all prescriptions, OTC, herbals, can nabis, and nutritional supplements).: Yes
[2025-07-12] VITALS: BP 103/70; PULSE 74; RESP 17; TEMP 36.3; O2SAT 100
[2025-07-12] MEDS: ONDANSETRON INJ 4 MG/2 ML VIAL IV PUSH ×3 (03:07→23:45)
[2025-07-12] MEDS: HYDROmorphone HCL INJ (*CRX) 1 MG/ML SYR 0.5 MG IV PUSH ×2 (03:08→07:15)
[2025-07-12] MEDS: SODIUM CHLORIDE 0.9% IV 1,000 ML 150 ML IV CONT (05:08)
[2025-07-12 05:20] VITALS: BP 109/66; PULSE 78; RESP 18; TEMP 35.8; O2SAT 99
--- NOTE | 2025-07-12 08:20 | P.CONOP_ITS ---
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 The bath angela slipped out from under her feet, she fell backwards on to Left outstretched hand. Seen in the ER, placed in splint, sent home. She returned to ER with intractable pain. No numbness or burning of digits. History of Left Carpal Tunnel release about 2 yrs ago. Xrays reviewed, LEFT Distal Radius Fracture - Severely comminuted intra- articular distal radius fracture with significant radial shortening and moderate dorsal angulation. 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 The bath angela slipped out from under her feet, she fell backwards on to Left outstretched hand. Seen in the ER, placed in splint, sent home. She returned to ER with intractable pain. No numbness or burning of digits. History of Left Carpal Tunnel release about 2 yrs ago. The splint was loosened in ER. She felt better after this. [facility] Past Medical History Medical History Cough Chronic cough Pneumonia Hx of herpes zoster Family history of colon cancer Family history of colon cancer Screening for malignant neoplasm of vagina after total hysterectomy UTI (urinary tract infection) UTI (urinary tract infection) Hydronephrosis Calculus of distal right ureter Encounter for surgical aftercare following surgery on the digestive system Right upper quadrant abdominal pain Screening for malignant neoplasm of colon Acute cholecystitis Cholelithiasis Gallstones Gastroenteritis Acute sinusitis Obesity (BMI 30-39.9) Overweight with body mass index (BMI) of 28 to 28.9 in adult Weight loss, intentional Weight gain BMI 36.0-36.9,adult BMI over 35 BMI 34.0-34.9,adult Depression with anxiety Right carpal tunnel syndrome Abnormal screening mammogram Kidney stone Surgical History Surgical History History of hysterectomy H/O abdominal surgery Hx laparoscopic cholecystectomy 07/23/[address] 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 Mother Dementia Sibling Diabetes mellitus Morbid obesity Other Carcinoma of colon Family history of malignant neoplasm of breast Social History Social History Smoking status: Never smoker Second hand tobacco smoke exposure: Yes Alcohol intake: never Substance use: never Substance use type: does not use Do You Feel Safe in your Home?: Yes Lack of Transportation: No Lack of Food: Never True Current Housing: I Have Housing Concerned About Future Housing: No Difficulty Paying Gas/Electric Bills: No Difficulty Paying for Meds: No Currently Unemployed: No Education: Bachelor's Degree Difficulty w/ Childcare or Family Care: No Living arrangements: alone Occupation/Education: occupation 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 [employer] Gender identity (if verbalized by the patient): Female Spiritual care concerns: No Meds Home Medications and Allergies Home Medications ?Medication ?Instructions ?Recorded ?Confirmed ?Type fluoxetine 20 mg capsule 20 mg PO DAILY #90 caps 0712/0107/11/25 Rx Allergies Allergy/AdvReac Type Severity Reaction Status Date / Time Penicillins Allergy Unknown Unknown Verified 07/11/25 21:31 Vital Signs Vital Signs - 24 hr 07/11/25 17:26 07/11/25 21:27 07/12/25 00:00 Temperature 36.6 C 36.3 C L 36.3 C L Pulse Rate 98 74 74 Respiratory Rate 16 17 17 Blood Pressure 109/72 103/70 103/70 Pulse Oximetry 99 100 100 Oxygen Delivery Room Air 07/12/25 05:20 Temperature 35.8 C L Pulse Rate 78 Respiratory Rate 18 Blood Pressure 109/66 Pulse Oximetry 99 Oxygen Delivery Exam 2 Narrative: Left upper extremity examined, in sling and forearm splint. Intact sensation to all digits. Minimal pain at elbow. Const: General: cooperative, healthy appearing, comfortable, no acute distress, well developed, alert, awake and average body habitus O rientation/consciousness: oriented to person, oriented to place and oriented to time Results Labs 07/11/25 19:09 07/11/25 20:27 Labs: Abnormal lab results 07/11/25 07/11/25 Range/Units 19:09 20:27 [place] # (Auto) 0.8 H (0.1-0.6) K/mm3 Abs Immat Gran (auto) 0.04 H (0.00-0.031) K/mm3 BUN 20 H (7-17) mg/dL Calcium 8.0 L (8.4-10.2) mg/dL H & H 07/11/25 Range/Units 19:09 Hgb 13.6 (12.0-15.0) g/dL Hct 41.5 (37.0-47.0) % All other labs normal.
[2025-07-12] MEDS: HYDROmorphone HCL INJ (*CRX) 1 MG/ML SYR IV PUSH (10:20)
[2025-07-12] MEDS: KETOROLAC 30 MG/ML VIAL (*BKC) IV PUSH (11:55)
[2025-07-12] MEDS: SODIUM CHLORIDE 0.9% IV 1,000 ML 100 ML IV CONT ×2 (11:59→21:45)
[2025-07-12] MEDS: oxyCODONE/ACETAMINOPHEN (*CRX) 10-325 MG TABLET 1 TAB PO ×3 (13:32→21:42)
[2025-07-12 14:13] VITALS: BP 124/68; PULSE 63; RESP 16; TEMP 36.2; O2SAT 98
--- NOTE | 2025-07-12 15:18 | PM.IMPN ---
Progress Note: A&P Assessment and Plan (1) Fracture of left wrist: Code(s): S62.102A - Fracture of unspecified carpal bone, left wrist, initial encounter for closed fracture Status: Acute Assessment and Plan: Left wrist XR: 1. Impacted comminuted fracture distal radius involving articular surface. 2. Tiny bone fragment above distal ulna. Ortho consulted with below recs: Xrays reviewed, LEFT Distal Radius Fracture - Severely comminuted intra-articular distal radius fracture with significant radial shortening and moderate dorsal angulation. 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 -Spoke to Dr. Rey on the telephone. Verbal recs for hand surgery consult -Spoke to Dr. Waters (hand surg) on the telephone with his recs for no inpt consult, that she could either try to get into his office or [facility] ([phone]) whichever was quickest to get her surgery completed in under x2 weeks. --Pt was able to get into [facility] [place] clinic tomorrow (07/13) at 1300. -Pt to stay overnight for pain control since it has been so extensive today. --Initially denied relief with Bowlegs that she was discharged with. We then incorporated higher IV break through pain, which helped (1mg Dilaudid). Also started toradol which the pt stated no relief from and that it made her high. This was D/C'd. Gabapentin 600mg BID was also ordered as well as Percocet 10/325. After re-eval of the Percocet, pt states that the pain is still 6/10. Plan for pain control overnight with Percocet, Gabapentin, and 0.5mg IV Dilaudid PRN q3h. Plan 49-year-old female with history class 2 obesity, depression and anxiety related to previous of father, not currently on pharmacological management, history of UTI, history of nephrolithiasis, self-reported left lobectomy of lung due to fungus presents to [facility] ER on 07/11/2025 after a fall. Patient was in her garage and slipped on a mat and fell onto her left side, reports pain all over her left arm. Head CT demonstrates no acute findings, cervical CT without contrast with mild cervical spondylosis, left shoulder two view, left wrist three view demonstrates impacted comminuted fracture of distal radius involving articular surface, tiny bone fragment above distal ulna, no shoulder fracture or dislocation. Orthopedic surgery consulted, patient discharged on Bowlegs and Aleve. After taking Aleve and Bowlegs the patient had nausea and vomiting, stomach cramping, loose watery diarrhea. Her pain was intractable so she return to the ER. Pain was 10/10, Dilaudid helped it a little bit. Also received Toradol. Received 1 L normal saline bolus and placed on continuous infusion. Orthopedic surgery again contacted. I reviewed the shoulder and wrist x-rays. Reviewed CT brain. ----- Decrease fluids to 100 cc/hour. Patient reports Dilaudid only takes her pain from a 10 to an 8. Will increase frequency from q.4 hours to q.3 hours. Avoid p.o. for now. It appears the Aleve and Bowlegs she does caused on wanted nausea vomiting, stomach cramping and diarrhea. That has resolved now after removal of those offending agents. Patient denies fever. Afebrile here. NPO midnight. SCDs. DVT prophylaxis deferred to Orthopedic surgery. Patient feels as if her left elbow is also broken, will obtain x-rays. Discussed medication side effects with the patient. She has no lung conditions. She is breathing well on room air. ----- Patient wishes to be full code. Time Spent With Patient Time: 60 Subjective Date/time seen: 07/12/25 1021 Interval history: Pt sitting in bed tearful due to L wrist pain s/p fall with complex fx. Pt denies any other pain, +LOC but unknown if hit head. Head CT NAD. Still complaining of severe pain. Reassessed pain several other times during day, no real pain control. See below. Review of Systems Review of Systems: All systems reviewed & are unremarkable except as noted in HPI and below (Subjective) Exam Const: General: comfortable and no acute distress Other: A&O x4 HENMT: Mouth: Yes moist mucous membranes Eyes: Pupils: Equal, round and reactive pupils present Neck: Neck: supple Resp: Effort & Inspection: normal respiratory effort Auscultation: clear to auscultation bilaterally Cardio: Rate: regular rate Rhythm: regular rhythm Heart sounds: no murmurs GI: Inspection: non-distended : General: Yes bladder normal to palpation Skin: General skin exam: normal color and no rashes or lesions noted Neuro: Cranial nerves: Yes Equal, round and reactive pupils present Motor exam (neuro): Normal motor muscle tone present throughout Sensory Exam: normal sensation Other: Neurovascular exam intact. Extrem: General: no edema Other: LUE splinted, PMS intact Objective Data Vital Signs Vital Signs: Vital Signs - 24 hr 07/11/25 17:26 07/11/25 21:27 07/12/25 00:00 Temperature 97.8 F 97.3 F L 97.3 F L Pulse Rate 98 74 74 Respiratory Rate 16 17 17 Blood Pressure 109/72 103/70 103/70 Pulse Oximetry 99 100 100 Oxygen Delivery Room Air 07/12/25 05:20 07/12/25 08:00 07/12/25 14:13 Temperature 96.4 F L 97.1 F L Pulse Rate 78 63 Respiratory Rate 18 16 Blood Pressure 109/66 124/68 Pulse Oximetry 99 98 Oxygen Delivery Room Air Intake/Output Intake/Output: Intake & Output 07/09/25 07/10/25 07/11/25 07/12/25 23:59 23:59 22:59 23:59 Intake Total 1000 2760 Balance 1000 2760 Meds/Results Medications: Active Medications Generic Name Dose Route Start Last Admin Trade Name Freq PRN Reason Stop Dose Admin Acetaminophen 650 mg 07/11/25 19:47 Acetaminophen 325 Mg Tablet PO Q4H PRN Mild Pain (1-3) or Fever Gabapentin 600 mg 07/12/25 17:00 Gabapentin 300 Mg Capsule PO BID MORAIMA Hydromorphone HCl 0.5 mg 07/11/25 22:54 07/12/25 07:15 Hydromorphone Hcl Inj (*Crx) 1 Mg/Ml Syr IV PUSH 0.5 mg Q3H PRN Administration Pain Rated 7-10 Sodium Chloride 1,000 mls @ 100 mls/hr 07/11/25 19:50 07/12/25 11:59 Normal Saline Iv IV CONT 100 mls/hr .Q10H MORAIMA Administration Ketorolac Tromethamine 30 mg 07/12/25 10:44 07/12/25 11:55 Ketorolac 30 Mg/Ml Vial (*Bkc) IV PUSH 30 mg Q6H PRN Administration Pain Rated 4-6 Ondansetron HCl 4 mg 07/11/25 19:47 07/12/25 07:15 Ondansetron Inj 4 Mg/2 Ml Vial IV PUSH 4 mg Q4H PRN Administration Nausea Oxycodone/Acetaminophen 1 tab 07/12/25 10:44 07/12/25 13:32 Oxycodone/Acetaminophen (*Crx) 10-325 Mg Tablet PO 1 tab Q4H PRN Administration Pain Rated 7-10 Radiology Results: ITS Impressions Elbow X-Ray 07/12/25 08:08 IMPRESSION: 1. Nondisplaced minimally impacted extra-articular fracture of the proximal left radial head neck junction Labs Labs: Laboratory Results - last 24 hr 07/11/25 07/11/25 19:09 20:27 WBC 9.8 RBC 4.76 Hgb 13.6 Hct 41.5 MCV 87.2 MCH 28.6 MCHC 32.8 RDW 13.2 Plt Count 283 MPV 9.6 Immature Gran % (Auto) 0.4 Neut % (Auto) 66.6 Lymph % (Auto) 23.9 [place] % (Auto) 7.7 Eos % (Auto) 0.6 Baso % (Auto) 0.8 Lymph # (Auto) 2.34 [place] # (Auto) 0.8 H Eos # (Auto) 0.1 Baso # (Auto) 0.1 Abs Immat Gran (auto) 0.04 H Absolute Neuts (auto) 6.5 Absolute Nucleated RBC 0.000 Nucleated RBC % 0.0 Sodium 140 Potassium 3.6 Chloride 107 Carbon Dioxide 26 Anion Gap 7 BUN 20 H Creatinine 0.83 Estim Creat Clear Calc 84 Estimated GFR > 60 Glucose 90 Calcium 8.0 L Total Bilirubin 0.6 AST 29 ALT 30 Alkaline Phosphatase 97 Total Protein 7.2 Albumin 3.8 Influenza A (RT-PCR) Negative Influenza B (RT-PCR) Negative RSV (RT-PCR) Negative SARS-CoV-2 RNA (RT-PCR) Negative Quality VTE Prophylaxis VTE prophylaxis: mechanical ordered
[2025-07-12] MEDS: GABAPENTIN 300 MG CAPSULE 600 MG PO (16:18)
[2025-07-12 22:00] VITALS: BP 104/65; PULSE 70; RESP 16; TEMP 36.4; O2SAT 98
--- NOTE | 2025-07-12 23:52 | PC.NURSE ---
pt notified this nurse that she felt as if the Percocet was making her woozy and wanted to know if she could get a dose change Servando Ibarra notified at ths time and gave order for Percocet 5-325 Q4 hours order has been updated an verified.
[2025-07-13] VITALS: BP 104/65; PULSE 70; RESP 16; TEMP 36.4; O2SAT 98
[2025-07-13] MEDS: ONDANSETRON INJ 4 MG/2 ML VIAL IV PUSH ×2 (04:00→09:06)
[2025-07-13 05:42] VITALS: BP 114/67; PULSE 73; RESP 16; TEMP 36.3; O2SAT 99
[2025-07-13] MEDS: oxyCODONE/ACETAMINOPHEN (*CRX) 5-325 MG TABLET 1 TABLET PO (05:52)
--- NOTE | 2025-07-13 07:33 | P.DS_ITS ---
DS: Admitting Diagnosis Discharge Date 07/13/2025 Admitting Diagnosis L wrist fx s/p fall DS: Discharge Diagnosis Discharge Diagnosis (1) Fracture of left wrist: Code(s): S62.102A - Fracture of unspecified carpal bone, left wrist, initial encounter for closed fracture Status: Acute Assessment and Plan: Left wrist XR: 1. Impacted comminuted fracture distal radius involving articular surface. 2. Tiny bone fragment above distal ulna. Ortho consulted with below recs: Xrays reviewed, LEFT Distal Radius Fracture - Severely comminuted intra- articular distal radius fracture with significant radial shortening and moderate dorsal angulation. 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 -Spoke to Dr. Rey on the telephone. Verbal recs for hand surgery consult -Spoke to Dr. Waters (hand surg) on the telephone with his recs for no inpt consult, that she could either try to get into his office or [facility] hand services ([phone]) whichever was quickest to get her surgery completed in under x2 weeks. --Pt was able to get into [facility]'s hand clinic tomorrow (07/13) at 1300. -Pt to stay overnight for pain control since it has been so extensive today. --Initially denied relief with [place] that she was discharged with. We then incorporated higher IV break through pain, which helped (1mg Dilaudid). Also started toradol which the pt stated no relief from and that it made her high. This was D/C'd. Gabapentin 600mg BID was also ordered as well as Percocet 10/325. After re-eval of the Percocet, pt states that the pain is still 6/10. Plan for pain control overnight with Percocet, Gabapentin, and 0.5mg IV Dilaudid PRN q3h. 07/13: Pt's pain controlled overnight with Percocet 5/325, will be sent home with x2 pills so she can make it to her appt. To be discharged today with f/u at hand surgeon [facility]'s at 1300. Pt with a ride home. Plan Pt discharge home today with f/u hand surgeon appt at 1300, [facility] 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 Patient was in her garage and slipped on a mat and fell onto her left side, reports pain all over her left arm. +LOC but unknwon if she struck her head, Head CT demonstrates no acute findings, cervical CT without contrast with mild cervical spondylosis, left shoulder two view, left wrist three view demonstrates impacted comminuted fracture of distal radius involving articular surface, tiny bone fragment above distal ulna, no shoulder fracture or dislocation. Orthopedic surgery consulted, patient discharged on [place] and Aleve. After taking Aleve and [place] at home the patient had nausea and vomiting, stomach cramping, loose watery diarrhea. Her pain was intractable so she return to the ER in the evening of 07/11. Pain was 10/10, Dilaudid helped it a little bit. Also received Toradol. Received 1 L normal saline bolus and placed on continuous infusion. Orthopedic surgery again contacted. In hospital evaluation: Pt pain was still not controlled upon admission. Toradol did not help, she reports that she felt high on it. Dilaudid IV took the edge off. Ended up putting her on Percocet 10/325 and gabapentin 600mg BID overnight which maintained her pain. Pt to be discharged today with Percocet 5/325mg enough to get her to her appt and schedule surgery. The patient was full code during the admission. She discharged home today with a hand specialist appt in [facility] office at 1300. All their questions and concerns were answered to satisfaction. Status at Discharge Overall status at discharge: patient is not back to baseline Time Spent with Patient Time attestation: Total time spent providing and/or coordinating discharge services: Time spent: Greater than 30 minutes Exam Const: General: comfortable and no acute distress Other: A&O x4 HENMT: Mouth: Yes moist mucous membranes Eyes: Pupils: Equal, round and reactive pupils present Neck: Neck: supple Resp: Effort & Inspection: normal respiratory effort Auscultation: clear to auscultation bilaterally Cardio: Rate: regular rate Rhythm: regular rhythm Heart sounds: no murmurs GI: Inspection: non-distended : General: Yes bladder normal to palpation Bimanual exam- vagina & uterus: bladder normal to palpation Skin: General skin exam: normal color and no rashes or lesions noted Neuro: Cranial nerves: Yes Equal, round and reactive pupils present Motor exam (neuro): 5/5 motor strength present throughout and Normal motor muscle tone present throughout Sensory Exam: normal sensation Other: Neurovascular exam intact. Extrem: General: no edema Other: LUE splinted, PMS intact DS: Data Data Completed and Pending Completed studies during hospitalization: labs, imaging Discharge Plan Discharge Attending physician on discharge: Naa Butler Consulting providers: Abner Rey; Teressa Trinh Discharging Clinician: Teressa Trinh Anticipated Discharge Date/Time: 07/13/25 11:00 Patient Disposition: Home Activity: as tolerated Diet: regular Discharge Instructions: Patient has an appointment on 07/13/25 at 1:00 pm at: Dr. Reagan Hernandez MD, Hand and wrist surgeon [facility] [address] [place] [address] [place] [address] Pt. to bring to the appointment with all imaging on a disc. I am writing you for a prescription of Percocet to help control your pain as well as a nerve medication called gabapentin. As you requesting, a few Zofran has been prescribed as well. Take care! Patient Instructions: Oxycodone/Acetaminophen (By mouth), Wrist Fracture in Adults (DC) Patient Language: Telugu Stand Alone Forms: General Discharge Information Follow-up/Referrals: Primitivo Rehman MD [Primary Care Provider, Family Practice] - 4 Weeks Discharge Medications: New gabapentin [Neurontin] 300 mg Capsule 600 mg PO BID Qty: 4 0RF oxycodone-acetaminophen 5-325 mg Tablet 1 tablet PO Q4H PRN (Reason: Pain Rated 7-10) Qty: 2 0RF ondansetron 4 mg tablet,disintegrating 4 mg PO Q8H PRN (Reason: nausea and vomiting) Qty: 2 0RF Continued fluoxetine 20 mg capsule 20 mg PO DAILY Qty: 90 1RF Date of admission: 07/11/25 19:47 Primary Care Provider: Primitivo Rehman Admitting Provider: Jefferson Guzman Attending physician on admission: Jefferson Guzman Condition: Stable Quality VTE Prophylaxis VTE prophylaxis: mechanical ordered Hospitalist MIPS Heart Failure (Exclusion) Patient has history of Heart Transplant or Left Ventricular Assistive Device?: No IF YES, STOP HERE Heart Failure (Qualifier) Patient has current or prior documentation of LVEF less than or equal to 40%, or mod/servere depressed LVSF?: No IF NO, STOP HERE
[2025-07-13 08:00] VITALS: BP 114/76; PULSE 74; RESP 18; TEMP 36.3; O2SAT 98
[2025-07-13] MEDS: GABAPENTIN 300 MG CAPSULE 600 MG PO (09:06)
== END 2025-07-13 11:26 | disposition home or self-care (01) ==
LOC: ANHED 19:12 → ANH3MEDSUR 07-12 07:01
PROVIDERS: Admitting Provider Internal Medicine; Emergency Provider Emergency Medicine; PCP Family Medicine; Visit Provider Student in an Organized Health Care Education/Training Program
DX: S52.572A Other intraarticular fracture of lower end of left radius, initial encounter for closed fracture (principal); W18.30XA Fall on same level, unspecified, initial encounter; E66.9 Obesity, unspecified; Z68.37 Body mass index [BMI] 37.0-37.9, adult; Z20.822 Contact with and (suspected) exposure to COVID-19
CPT/HCPCS: 36415; 73080; 80053; 85025; 87637; 96361; 96374; 96375; 96376; 99285; A9270; G0378; G0379; J1171; J1885; J2405; J7030